=== PATIENT | female | born 1965 | race Caucasian/White ===

== ENCOUNTER → 2016-05-17 | Outpatient (CLI) | payer OTHER, MEDICARE ==
[~2016-05-17] MED LIST: /CELE20CA PO; /PANT40TA PO; AMIT10TA PO; DULO20CA PO; DULO30CA PO; GABA-283 PO; LIDO5DIS TOP; MELO7.5S PO; NAPR500T2 PO; NEUR100C PO; OXYC15TA66 PO; OXYCON PO; VICO5TAB PO; VOLT1GEL TOP
--- NOTE | 2016-05-22 23:37 | ECWPNPC ---
PATIENT NAME: LEVI AMRTE : 1965 GENDER: FEMALE VISIT DATE: 05/17/2016 DISCHARGE DATE: 05/17/16 1028 VISIT LOCKED DATE TIME: PHYSICIAN: CRICKET TOVAR RESOURCE: CRICKET TOVAR REASON FOR APPOINTMENT 1. W/C ARM HISTORY OF PRESENT ILLNESS GENERAL: 50 YEAR OLD FEMALE PATIENT WITH HISTORY OF CHRONIC RIGHT UPPER ARM AND BILATERAL WRIST AND HAND PAIN. PATIENT DESCRIBES THE PAIN ACHING, BURNING, SHARP, STABBING, TENDER, THROBBING, SORE, AND HAVING IT ALL THE TIME WITH A PAIN SCORE OF 9/10 ON TODAY'S VISIT. PATIENT WAS INJURED IN A WORK RELATED INJURY ON 06/09/2009 WORKING FOR THE [employer]. PATIENT INJURY WAS DUE TO THE REPETITIOUS MOVEMENT FROM TYPING. PATIENT REPORTS THAT SHE HAS A STELLATE GANGLION BLOCK ON 03/02/2016 AND SHE HAD THE LONGEST PAIN RELIEF FROM THAT INJECTION. PATIENT STATES THAT SOMETIMES SHE EXPERIENCES SWEATING ON HER RIGHT HAND MORE COMPARED TO THE LEFT HAND. AND THAT SHE HER HANDS GOES THROUGH TEMPERATURE CHANGES. PATIENT DENIES UNEXPLAINABLE WEIGHT LOSS, FEVER, CHILLS, NEW CHANGES ON HER URINARY OR BOWEL CONTROL. CURRENT MEDICATIONS TAKING MELOXICAM 15 MG TABLET 1 TABLET ORALLY ONCE A DAY TAKING AMITRIPTYLINE HCL 30 MG TABLET 1 TABLET AT BEDTIME ORALLY ONCE A DAY TAKING DULOXETINE HCL 30 MG CAPSULE DELAYED RELEASE PARTICLES 1 CAPSULE ORALLY TWICE A DAY TAKING GABAPENTIN 400 MG TABLET 1 TABLET ORALLY BID TAKING OXYCONTIN 30 MG TABLET ER 12 HOUR ABUSE-DETERRENT 1 TABLET ORALLY EVERY 12 HRS TAKING TRAMADOL HCL 50 MG TABLET 1 TABLET NEEDED ORALLY EVERY 4 HOURS NEEDED TAKING HYDROCODONE-ACETAMINOPHEN 5-325 MG TABLET 1 CAPSULE NEEDED ORALLY EVERY 4 HRS NEEDED NOT-TAKING VALIUM 10 MG TABLET 1 ORALLY 1 TAB 1HR PRE PROCEDURE MDD1 NOT-TAKING VALIUM 5 MG TABLET 1 TABLET NEEDED ORALLY ONCE, NOTES: 1400 NOT-TAKING FLOMAX 0.4 MG CAPSULE 1 CAPSULE 30 MINUTES AFTER THE SAME MEAL EACH DAY ORALLY ONCE A DAY NOT-TAKING KETOROLAC TROMETHAMINE 10 MG TABLET 1 TABLET NEEDED ORALLY BID PRN NOT-TAKING LIDOCAINE 5 % OINTMENT 1 APPLICATION TO AFFECTED AREA NEEDED EXTERNALLY THREE TIMES A DAY NOT-TAKING NAPROXEN 500 MG TABLET 1 TABLET NEEDED ORALLY EVERY 12 HRS MEDICATION LIST REVIEWED AND RECONCILED WITH THE PATIENT PAST MEDICAL HISTORY KIDNEY STONES CTS, BILATERAL FIBROMYALGIA OSTEOARTHRITIS SCOLIOSIS A CHILD ALLERGIES PSEUDOEPHEDRINE HCL: HIVES: ALLERGY SULFA (FOR ALLERGY USE ONLY): HIVES: ALLERGY SURGICAL HISTORY CHOLECYSTECTOMY 2008 CTR, RIGHT 2012 TUBAL LIGATION 2008 LITHOTRIPSY 2005 REMOVAL LIPOMA LEFT ABDOMEN 2015 FAMILY HISTORY NO FAMILY HISTORY DOCUMENTED. SOCIAL HISTORY GENERAL: TOBACCO USE ARE YOU A:NONSMOKER LEARNING BARRIERS / SPECIAL NEEDS ORIENTED TO PLAN OF CARE: PATIENT, PAIN MANAGEMENT PATIENT, ORIENTED TO PLAN OF CARE: PATIENT, PAIN MANAGEMENT PATIENT. NEW PATIENT PAIN DIARY TODAY'S VISITNOTES FROM 0-10, WHAT LEVEL IS YOUR PAIN TODAY?0 PAIN CLINIC PFS, CLERGY, PUBLIC HEALTH REFERRALS PFS REFERRAL NEEDED?NO CLERGY REFERRAL NEEDED?NO PUBLIC HEALTH REFERRAL NEEDED?NO WAS THE PROVIDER NOTIFIED OF ANY PERTINENT INFO?NO PFS REFERRAL NEEDED?NO CLERGY REFERRAL NEEDED?NO PUBLIC HEALTH REFERRAL NEEDED?NO WAS THE PROVIDER NOTIFIED OF ANY PERTINENT INFO?NO HOSPITALIZATION/MAJOR DIAGNOSTIC PROCEDURE SURGICALLY RELATED CONCUSION TEENAGER VITAL SIGNS WT 180 LBS, HT 63 IN, BMI 31.88 INDEX, BP 160/85 MM HG, HR 99 /MIN, RR 16 /MIN, TEMP 96.9 F, OXYGEN SAT % 98, NA INITIALS TL 0946, REVIEWED BY: MATEO. EXAMINATION GENERAL: PATIENT IS ALERT O X 3 AND COOPERATIVE. PATIENT HAD DIFFICULTIES PULLING THE SLEEVES UP FOR THE EXAMINATION. 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 PATIENT'S RIGHT HAND NEON MOLDER IS WEAKER COMPARED TO THE LEFT HAND NEON MOLDER. PATIENT'S STRENGTH IN THE IN THE RIGHT ARM IS WEAKER COMPARED TO THE LEFT ARM. PATIENT IS ABLE TO ONLY ABDUCT HER LEFT ARM, ATTEMPTING TO ABDUCT THE RIGHT ARM WAS TOO DIFFICULT FOR THE PATIENT. THERE IS HYPERPATHIA ON THE SCAR ON THE RIGHT WRIST. 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 TREATMENT PAIN IN ARM, UNSPECIFIED NOTES: WE DISCUSSED SEVERAL ISSUES WITH MS. MARTE'S PAIN MANAGEMENT CASE. AT THIS TIME THE PAIN WILL CONTINUE ON THE SAME MEDICATION REGIMEN BEFORE, AND WILL ALSO RECEIVE A REFILL OF THE NEEDED MEDICATIONS TODAY. DUE TO THE SUCCESS OF THE STELLATE GANGLION BLOCK, THE PATIENT IS A GOOD CANDIDATE FOR ANOTHER STELLATE GANGLION BLOCK INJECTION. WE DISCUSSED THE RISK, ALTERNATIVES, AND BENEFITS AND THE PATIENT WOULD LIKE TO PROCEED. , INSTRUCTIONS WERE GIVEN, QUESTIONS WERE ANSWERED, PATIENT REPORTS UNDERSTANDING AND AGREES WITH THE PLAN. I, ARDEN BAEL, DOCUMENTED THE ABOVE INFORMATION ACTING A SCRIBE FOR DR. TOVAR. I HAVE REVIEWED THE ABOVE DOCUMENT, WRITTEN BY ARDEN BEAL SCRIBE AND I VERIFY THAT IT IS ACCURATE. OTHERS REFILL MELOXICAM TABLET, 15 MG, 1 TABLET, ORALLY, ONCE A DAY REFILL DULOXETINE HCL CAPSULE DELAYED RELEASE PARTICLES, 30 MG, 1 CAPSULE, ORALLY, TWICE A DAY REFILL GABAPENTIN TABLET, 400 MG, 1 TABLET, ORALLY, BID REFILL AMITRIPTYLINE HCL TABLET, 30 MG, 1 TABLET AT BEDTIME, ORALLY, ONCE A DAY REFILL OXYCONTIN TABLET ER 12 HOUR ABUSE-DETERRENT, 30 MG, 1 TABLET, ORALLY, EVERY 12 HRS REFILL HYDROCODONE-ACETAMINOPHEN TABLET, 5-325 MG, 1 CAPSULE NEEDED, ORALLY, EVERY 4 HRS NEEDED PROCEDURES PN WORKMANS' COMP OPINION IN YOUR OPINION, WAS THE INCIDENT THAT THE PATIENT DESCRIBED THE COMPETENT MEDICAL CAUSE OF THIS INJURY/ILLNESS? YES ARE THE PATIENT'S COMPLAINTS CONSISTENT WITH HIS/HER HISTORY OF THE INJURY/ILLNESS? YES IS THE PATIENT'S HISTORY OF THE INJURY/ILLNESS CONSISTENT WITH YOUR OBJECTIVE FINDING? YES WHAT IS THE PERCENTAGE OF TEMPORARY IMPAIRMENT? MARKED = 75% IS THE PATIENT WORKING? NO DOCTOR ON SITE: CRICKET SUH MD PREVENTIVE MEDICINE PAIN CLINIC TEACHING: PROCEDURE TEACHING PRE STELLATE GANGLION INSTRUCTIONS REVIEWED WITH PT. VERBALIZED UNDERSTANDING.. PROCEDURE CODES FA211 ESTABILISHED PATIENT [facility] FACILITY CHARGE G8730 PAIN ASSESS POS TOOL F/U PLAN DOC G8427 DOC MEDS VERIFIED W/PT OR RE DISPOSITION & COMMUNICATION FOLLOW UP STE. GAN. DECKER PENDING APPROVAL ELECTRONICALLY SIGNED BY CRICKET TOVAR MD ON 05/22/2016 AT 09:15 PM EST DISCLAIMER : THIS IS A VISIT SUMMARY EXTRACTED FROM THE [employer] CHART. IT IS NOT A COPY OF THE [employer] PROGRESS NOTE. MUKUL
== END ==
LOC: M PAIN 09:40
PROVIDERS: ATTEND Anesthesiology
DX: M79.603 Pain in arm, unspecified (principal); M25.531 Pain in right wrist; M25.532 Pain in left wrist; M79.642 Pain in left hand; M79.641 Pain in right hand; G90.511 Complex regional pain syndrome I of right upper limb; G89.29 Other chronic pain; M79.7 Fibromyalgia; M19.90 Unspecified osteoarthritis, unspecified site; Z86.69 Personal history of other diseases of the nervous system and sense organs; Z79.891 Long term (current) use of opiate analgesic; Z79.899 Other long term (current) drug therapy; Z88.2 Allergy status to sulfonamides; Z88.8 Allergy status to other drugs, medicaments and biological substances

== ENCOUNTER → 2016-06-21 | Outpatient (CLI) | payer OTHER, MEDICARE ==
[~2016-06-21] MED LIST changes: +BUPIVACAINE HCL 0.25% 30 ML VIAL As Ordered ONE; +ISOVUE-M 300 61% 15ML VIAL (Q9967) As Ordered ONE; +LIDOCAINE 1% SDV INJ 30 ML VIAL As Ordered ONE; +MIDAZOLAM INJ 2 MG/2 ML VIAL (J2250) As Ordered ONE; +TRIAMCINOLONE ACETONIDE SUSP 40 MG/ML VIAL (J3301) As Ordered ONE; +fentaNYL 100 MCG/2 ML INJECTION (J3010) As Ordered ONE; +methylPREDNISolone SUSP 40 MG/ML (DEPO-medrol) VIAL (J1030) As Ordered ONE
--- NOTE | 2016-06-21 16:19 | REP ---
FACET BLOCK: The images were reviewed with Dr. Rosas. The patient has a history of hand pain. The portable C-ARM was provided in the OR for Dr. Story for fluoroscopic guidance. 9 intraoperative fluoroscopic spot films were obtained for needle placement verification for right cervical stellate ganglion block. The images are on the PACs system and are available for review. 27 seconds of fluoroscopic time was utilized for this procedure. Reviewed by DOMI Barrientos 06/21/2016 05:06 PEdited and Signed by Evans Rosas MD 06/22/2016 03:35 P
--- NOTE | 2016-06-30 01:33 | ECWPNPC ---
PATIENT NAME: LEVI MARTE : 1965 GENDER: FEMALE VISIT DATE: 06/21/2016 DISCHARGE DATE: 06/21/16 1617 VISIT LOCKED DATE TIME: PHYSICIAN: CRICKET TOVAR RESOURCE: RCICKET TOVAR REASON FOR APPOINTMENT 1. STELLATE GANGLION BLOCK HISTORY OF PRESENT ILLNESS HISTORY OF PRESENT ILLNESS: PAIN THE PATIENT DESCRIBES THE PAIN... FALL RISK SCREENING: SCREENING :NO FALLS IN THE PAST YEAR CURRENT MEDICATIONS TAKING MELOXICAM 15 MG TABLET 1 TABLET ORALLY ONCE A DAY, NOTES: 06-21-16 0900 TAKING DULOXETINE HCL 30 MG CAPSULE DELAYED RELEASE PARTICLES 1 CAPSULE ORALLY TWICE A DAY, NOTES: 06-20-16 PM TAKING GABAPENTIN 400 MG TABLET 1 TABLET ORALLY BID, NOTES: 06-21-16 0900 TAKING AMITRIPTYLINE HCL 30 MG TABLET 1 TABLET AT BEDTIME ORALLY ONCE A DAY, NOTES: 06-20-16 PM TAKING OXYCONTIN 30 MG TABLET ER 12 HOUR ABUSE-DETERRENT 1 TABLET ORALLY EVERY 12 HRS, NOTES: 06-21-16 0900 TAKING HYDROCODONE-ACETAMINOPHEN 5-325 MG TABLET 1 CAPSULE NEEDED ORALLY EVERY 4 HRS NEEDED, NOTES: 06-21-16 1000 NOT-TAKING TRAMADOL HCL 50 MG TABLET 1 TABLET NEEDED ORALLY EVERY 4 HOURS NEEDED NOT-TAKING FLOMAX 0.4 MG CAPSULE 1 CAPSULE 30 MINUTES AFTER THE SAME MEAL EACH DAY ORALLY ONCE A DAY NOT-TAKING LIDOCAINE 5 % OINTMENT 1 APPLICATION TO AFFECTED AREA NEEDED EXTERNALLY THREE TIMES A DAY NOT-TAKING NAPROXEN 500 MG TABLET 1 TABLET NEEDED ORALLY EVERY 12 HRS DISCONTINUED VALIUM 10 MG TABLET 1 ORALLY 1 TAB 1HR PRE PROCEDURE MDD1 DISCONTINUED VALIUM 5 MG TABLET 1 TABLET NEEDED ORALLY ONCE, NOTES: 1400 DISCONTINUED KETOROLAC TROMETHAMINE 10 MG TABLET 1 TABLET NEEDED ORALLY BID PRN MEDICATION LIST REVIEWED AND RECONCILED WITH THE PATIENT PAST MEDICAL HISTORY KIDNEY STONES CTS, BILATERAL FIBROMYALGIA OSTEOARTHRITIS SCOLIOSIS A CHILD ALLERGIES PSEUDOEPHEDRINE HCL: HIVES: ALLERGY SULFA (FOR ALLERGY USE ONLY): HIVES: ALLERGY SOCIAL HISTORY GENERAL: TOBACCO USE ARE YOU A:NONSMOKER LEARNING BARRIERS / SPECIAL NEEDS ORIENTED TO PLAN OF CARE: PATIENT, PAIN MANAGEMENT PATIENT, ORIENTED TO PLAN OF CARE: PATIENT, PAIN MANAGEMENT PATIENT. NEW PATIENT PAIN DIARY TODAY'S VISITNOTES FROM 0-10, WHAT LEVEL IS YOUR PAIN TODAY?0 PAIN CLINIC PFS, CLERGY, PUBLIC HEALTH REFERRALS PFS REFERRAL NEEDED?NO CLERGY REFERRAL NEEDED?NO PUBLIC HEALTH REFERRAL NEEDED?NO WAS THE PROVIDER NOTIFIED OF ANY PERTINENT INFO?NO PFS REFERRAL NEEDED?NO CLERGY REFERRAL NEEDED?NO PUBLIC HEALTH REFERRAL NEEDED?NO WAS THE PROVIDER NOTIFIED OF ANY PERTINENT INFO?NO REVIEW OF SYSTEMS CONSTITUTIONAL: ANY CHANGE IN YOUR MEDICAL CONDITION? NO . CHILLS NO . FEVER NO . INFECTION: DO YOU HAVE NEW INFECTIONS? NO . DO YOU HAVE HISTORY OF MRSA? NO . MUSCULOSKELETAL: ANY NEW PATTERNS OF PAIN OR NUMBNESS? NO . GASTROENTEROLOGY: ANY NEW CHANGE IN BOWEL CONTROL? NO . GENITOURINARY: ANY NEW CHANGE IN BLADDER CONTROL? NO . IS THERE A CHANCE YOU COULD BE ? NO . HEMATOLOGY/LYMPH: DO YOU TAKE ANY BLOOD THINNERS? (FOR EXAMPLE- COUMADIN, PLAVIX, AGGRENOX, PLATEL, PRADAXA, OR XARELTO) NO . WHEN WAS YOUR LAST DOSE? DATE: TIME: . NEUROLOGY: HAVE YOU FALLEN IN THE PAST 6 MONTHS? NO . ANY NEW EXTREMITY NUMBNESS OR WEAKNESS? NO . CARDIOLOGY: DO YOU HAVE A PACEMAKER OR DEFIBRILLATOR? NO . RESPIRATORY: HAVE YOU BEEN SICK IN THE PAST WEEK? NO . FEVER NO . FLU LIKE SYMPTOMS? NO . COUGH NO . INTEGUMENTARY: DO YOU HAVE ANY RASHES OR OPEN SORES? NO . ALLERGIC/IMMUNO: ARE YOU ALLERGIC TO SHELLFISH OR IV DYE? NO . ANY NEW ALLERGIES? NO . PSYCHIATRIC: DO YOU HAVE THOUGHTS OF HURTING YOURSELF OR SOMEONE ELSE? NO . ARE YOU ABUSED, NEGLECTED, OR IN AN UNSAFE ENVIRONMENT? NO . ENDOCRINOLOGY: ARE YOU DIABETIC? NO . OTHER: DO YOU NEED ANY PRESCRIPTIONS? NO . IF YES, PLEASE LIST: ____ . ANY NEW PROBLEMS WITH YOUR MEDICATIONS? NO . WHEN DID YOU LAST EAT? 06-20-16 PM . WHEN DID YOU LAST DRINK? 06-21-16 0900 . WHAT DID YOU LAST DRINK? WATER . NAME OF PERSON DRIVING YOU HOME? NATALIA . DO YOU HAVE ANY OTHER QUESTIONS OR CONCERNS NO . REVIEWED BY: PROVIDER: . VITAL SIGNS WT 180 LBS, HT 63 IN, BMI 31.88 INDEX, BP 116/84 MM HG, HR 100 /MIN, RR 18 /MIN, TEMP 97.0 F, OXYGEN SAT % 95, NA INITIALS HS, REVIEWED BY: CM. 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 YES ARE THE PATIENT'S COMPLAINTS CONSISTENT WITH HIS/HER HISTORY OF THE INJURY/ILLNESS? YES IS THE PATIENT'S HISTORY OF THE INJURY/ILLNESS CONSISTENT WITH YOUR OBJECTIVE FINDING? YES WHAT IS THE PERCENTAGE OF TEMPORARY IMPAIRMENT? MARKED = 75% IS THE PATIENT WORKING? NO DOCTOR ON SITE: CRICKET SUH MD PREPROCEDURE DIAGNOSES: 1. RIGHT ARM NEURALGIA. 2. RIGHT ARM COMPLEX REGIONAL PAIN SYNDROMEPOSTPROCEDURE DIAGNOSES: 1. RIGHT ARM NEURALGIA. 2. RIGHT ARM COMPLEX REGIONAL PAIN SYNDROMEPROCEDURE: RIGHT STELLATE GANGLION BLOCK UNDER FLUOROSCOPIC GUIDANCE WITH I V SEDATION.SURGEON: CRICKET SUH MDASSISTANT: NONE.ANESTHESIA: LOCAL WITH INTRAVENOUS IV SEDATION.PREOPERATIVE NOTE: THE PATIENT IS WITH HISTORY OF RIGHT ARM PAIN. I WENT THROUGH THE RISKS, ALTERNATIVES, AND BENEFITS ASSOCIATED WITH THIS PROCEDURE. THE PATIENT WANTS TO HAVE IV SEDATION DUE TO ANXIETY AND DISCOMFORT THAT THIS PROCEDURE WILL CAUSE TO HER. THE PATIENT EXPRESSED THAT SHE WOULD LIKE TO PROCEED UNDER IV SEDATION. THE PATIENT DENIES UNEXPLAINABLE WEIGHT LOSS, FEVER, CHILLS, OR CHANGES IN HER URINARY OR BOWEL CONTROL.DESCRIPTION OF PROCEDURE: AFTER CONSENT WAS TAKEN, THE PATIENT WAS BROUGHT TO THE PROCEDURE ROOM AND PLACED IN THE SUPINE POSITION. THE RIGHT NECK AREA WAS CLEANED WITH CHLORAPREP SOLUTION AND DRAPED ASEPTICALLY. THE PROCEDURE WAS DONE UNDER STERILE CONDITIONS. UNDER FLUOROSCOPIC GUIDANCE, TARGET POINT WAS SELECTED AT THE LEVEL APPROXIMATELY OF T7. I ADVANCED A HAVEL 21G ULTRASOUND NEEDLE WITH THE HELP OF AN ULTRASOUND DEVICE. I PUT THE NEEDLE BEHIND THE CAROTID ARTERY AND ANTERIOR TO THE LONGUS COLLI MUSCLE. I USED THE ULTRASOUND TO CHECK THE VASCULAR STRUCTURES AND AVOID NERVES. WHEN APPROPRIATE POSITION OF THE NEEDLE WAS ACHIEVED, ISOVUE M DYE 30%, 1/4 ML, WAS INJECTED SHOWING SPREAD OF THE DYE. THEN A SOLUTION OF 10 ML OF BUPIVACAINE 0.25% AND LIDOCAINE 1%, 50/50 WAS INJECTED WITH KENALOG 40 MG. THE PATIENT RECEIVED FENTANYL 100 MCG IV AND VERSED 3 MG IV IN DIVIDED DOSES. FACE TO FACE TIME WAS 40 MINUTES .THERE WAS NO EVIDENCE OF BLOOD, PARESTHESIA, OR CEREBROSPINAL FLUID. THE PATIENT WAS SENT TO THE RECOVERY ROOM. THE PATIENT WAS MOVING EXTREMITIES AND DOING WELL. THERE WERE NO COMPLICATIONS DURING THE PROCEDURE. THERE WERE NO COMPLICATIONS. FLUOROSCOPY TIME WAS 22 SECONDSPOST PROCEDURE NOTE: AFTER THE PROCEDURE, THE PATIENT WAS HAVING EVIDENCE OF PTOSIS, EVIDENCE OF AN ADEQUATE BLOCK. I DISCUSSED ALTERNATIVES. WE WILL SEE THE PATIENT IN A FOLLOWUP. WE ARE LOOKING FOR LONG LASTING PAIN RELIEF WITH THIS INTERVENTION. THERE WERE NO COMPLICATIONS. INSTRUCTIONS WERE GIVEN, QUESTIONS WERE ANSWERED, PATIENT REPORTS UNDERSTANDING AND AGREES WITH THE PLAN. I, ARDEN BEAL, DOCUMENTED THE ABOVE INFORMATION ACTING A SCRIBE FOR DR. TOVAR. I HAVE REVIEWED THE ABOVE DOCUMENT, WRITTEN BY ARDEN BEAL SCRIBE AND I VERIFY THAT IT IS ACCURATE. DIAGNOSTIC IMAGING [facility] FACET BLOCK (PAIN)[id number] PROCEDURE CODES 00920 N BLOCK STELLATE GANGLION 70179 NEEDLE LOCALIZATION BY XRAY 94013 MOD SED SAME PHYS/QHP 5/>YRS 45362 MOD SED SAME PHYS/QHP EA DISPOSITION & COMMUNICATION FOLLOW UP 3 WEEKS ELECTRONICALLY SIGNED BY CRICKET TOVAR MD ON 06/29/2016 AT 01:12 PM EDT DISCLAIMER : THIS IS A VISIT SUMMARY EXTRACTED FROM THE [employer] CHART. IT IS NOT A COPY OF THE [employer] PROGRESS NOTE. MTDD
== END ==
LOC: M PAIN 13:00
PROVIDERS: ATTEND Anesthesiology
DX: G89.29 Other chronic pain (principal); G90.511 Complex regional pain syndrome I of right upper limb; M79.622 Pain in left upper arm; F41.9 Anxiety disorder, unspecified; M19.90 Unspecified osteoarthritis, unspecified site; Z88.2 Allergy status to sulfonamides; Z88.8 Allergy status to other drugs, medicaments and biological substances; Z79.891 Long term (current) use of opiate analgesic; Z79.899 Other long term (current) drug therapy; Z87.39 Personal history of other diseases of the musculoskeletal system and connective tissue
CPT/HCPCS: 64510; 77003; 99152; 99153; J1030; J2250; J3010; J3301; Q9967

== ENCOUNTER → 2016-08-26 | Outpatient (CLI) | payer OTHER, MEDICARE ==
[~2016-08-26] MED LIST changes: -BUPIVACAINE HCL 0.25% 30 ML VIAL As Ordered ONE; -ISOVUE-M 300 61% 15ML VIAL (Q9967) As Ordered ONE; -LIDOCAINE 1% SDV INJ 30 ML VIAL As Ordered ONE; -MIDAZOLAM INJ 2 MG/2 ML VIAL (J2250) As Ordered ONE; -TRIAMCINOLONE ACETONIDE SUSP 40 MG/ML VIAL (J3301) As Ordered ONE; -fentaNYL 100 MCG/2 ML INJECTION (J3010) As Ordered ONE; -methylPREDNISolone SUSP 40 MG/ML (DEPO-medrol) VIAL (J1030) As Ordered ONE
--- NOTE | 2016-09-08 02:32 | ECWPNPC ---
PATIENT NAME: LEVI MARTE : 1965 GENDER: FEMALE VISIT DATE: 08/26/2016 DISCHARGE DATE: 08/26/16 1620 VISIT LOCKED DATE TIME: PHYSICIAN: CRICKET TOVAR RESOURCE: CRICKET TOVAR REASON FOR APPOINTMENT 1. WC ARM PAIN HISTORY OF PRESENT ILLNESS HISTORY OF PRESENT ILLNESS: PAIN THE PATIENT DESCRIBES THE PAIN... 50 YEAR OLD FEMALE PATIENT WITH HISTORY OF CHRONIC RIGHT UPPER ARM AND BILATERAL WRIST AND HAND PAIN. PATIENT DESCRIBES THE PAIN ACHING, BURNING, SHARP, STABBING, TENDER, THROBBING, SORE, AND HAVING IT ALL THE TIME WITH A PAIN SCORE OF 6/10 ON TODAY'S VISIT. PATIENT WAS INJURED IN A WORK RELATED INJURY ON 06/09/2009 WORKING FOR THE [employer] PASS[employer]. PATIENT INJURY WAS DUE TO THE REPETITIOUS MOVEMENT FROM TYPING. PATIENT REPORTS THAT SHE HAS A STELLATE GANGLION BLOCK ON 06/21/2016 AND REPORTS HAVING OVER 50% RELIEF FROM PAIN AND AN INCREASE IN MOBILITY AND FUNCTIONALITY FOR OVER A 7 WEEKS. PATIENT STATES THAT SOMETIMES SHE EXPERIENCES SWEATING ON HER RIGHT HAND MORE COMPARED TO THE LEFT HAND. PATIENT DENIES UNEXPLAINABLE WEIGHT LOSS, FEVER, CHILLS, NEW CHANGES ON HER URINARY OR BOWEL CONTROL. FALL RISK SCREENING: SCREENING :NO FALLS IN THE PAST YEAR CURRENT MEDICATIONS TAKING MELOXICAM 15 MG TABLET 1 TABLET ORALLY ONCE A DAY TAKING DULOXETINE HCL 30 MG CAPSULE DELAYED RELEASE PARTICLES 1 CAPSULE ORALLY TWICE A DAY TAKING GABAPENTIN 400 MG TABLET 1 TABLET ORALLY BID TAKING AMITRIPTYLINE HCL 30 MG TABLET 1 TABLET AT BEDTIME ORALLY ONCE A DAY TAKING OXYCONTIN 30 MG TABLET ER 12 HOUR ABUSE-DETERRENT 1 TABLET ORALLY EVERY 12 HRS TAKING HYDROCODONE-ACETAMINOPHEN 5-325 MG TABLET 1 CAPSULE NEEDED ORALLY EVERY 4 HRS NEEDED NOT-TAKING TRAMADOL HCL 50 MG TABLET 1 TABLET NEEDED ORALLY EVERY 4 HOURS NEEDED NOT-TAKING FLOMAX 0.4 MG CAPSULE 1 CAPSULE 30 MINUTES AFTER THE SAME MEAL EACH DAY ORALLY ONCE A DAY NOT-TAKING LIDOCAINE 5 % OINTMENT 1 APPLICATION TO AFFECTED AREA NEEDED EXTERNALLY THREE TIMES A DAY NOT-TAKING NAPROXEN 500 MG TABLET 1 TABLET NEEDED ORALLY EVERY 12 HRS MEDICATION LIST REVIEWED AND RECONCILED WITH THE PATIENT PAST MEDICAL HISTORY KIDNEY STONES CTS, BILATERAL FIBROMYALGIA OSTEOARTHRITIS SCOLIOSIS A CHILD ALLERGIES PSEUDOEPHEDRINE HCL: HIVES: ALLERGY SULFA (FOR ALLERGY USE ONLY): HIVES: ALLERGY SURGICAL HISTORY CHOLECYSTECTOMY 2008 CTR, RIGHT 2012 TUBAL LIGATION 2008 LITHOTRIPSY 2005 REMOVAL LIPOMA LEFT ABDOMEN 2015 FAMILY HISTORY NO FAMILY HISTORY DOCUMENTED. SOCIAL HISTORY GENERAL: TOBACCO USE ARE YOU A:NONSMOKER LEARNING BARRIERS / SPECIAL NEEDS ORIENTED TO PLAN OF CARE: PATIENT, PAIN MANAGEMENT PATIENT, ORIENTED TO PLAN OF CARE: PATIENT, PAIN MANAGEMENT PATIENT. NEW PATIENT PAIN DIARY TODAY'S VISITNOTES FROM 0-10, WHAT LEVEL IS YOUR PAIN TODAY?0 PAIN CLINIC PFS, CLERGY, PUBLIC HEALTH REFERRALS PFS REFERRAL NEEDED?NO CLERGY REFERRAL NEEDED?NO PUBLIC HEALTH REFERRAL NEEDED?NO WAS THE PROVIDER NOTIFIED OF ANY PERTINENT INFO?NO PFS REFERRAL NEEDED?NO CLERGY REFERRAL NEEDED?NO PUBLIC HEALTH REFERRAL NEEDED?NO WAS THE PROVIDER NOTIFIED OF ANY PERTINENT INFO?NO HOSPITALIZATION/MAJOR DIAGNOSTIC PROCEDURE SURGICALLY RELATED CONCUSION TEENAGER REVIEW OF SYSTEMS CONSTITUTIONAL: ANY CHANGE IN YOUR MEDICAL CONDITION? NO . CHILLS NO . FEVER NO . INFECTION: DO YOU HAVE NEW INFECTIONS? NO . DO YOU HAVE HISTORY OF MRSA? NO . MUSCULOSKELETAL: ANY NEW PATTERNS OF PAIN OR NUMBNESS? NO . GASTROENTEROLOGY: ANY NEW CHANGE IN BOWEL CONTROL? NO . GENITOURINARY: ANY NEW CHANGE IN BLADDER CONTROL? NO . IS THERE A CHANCE YOU COULD BE ? NO . HEMATOLOGY/LYMPH: DO YOU TAKE ANY BLOOD THINNERS? (FOR EXAMPLE- COUMADIN, PLAVIX, AGGRENOX, PLATEL, PRADAXA, OR XARELTO) NO . WHEN WAS YOUR LAST DOSE? DATE: TIME: . NEUROLOGY: HAVE YOU FALLEN IN THE PAST 6 MONTHS? NO . ANY NEW EXTREMITY NUMBNESS OR WEAKNESS? NO . CARDIOLOGY: DO YOU HAVE A PACEMAKER OR DEFIBRILLATOR? NO . RESPIRATORY: HAVE YOU BEEN SICK IN THE PAST WEEK? NO . FEVER NO . FLU LIKE SYMPTOMS? NO . COUGH NO . INTEGUMENTARY: DO YOU HAVE ANY RASHES OR OPEN SORES? NO . ALLERGIC/IMMUNO: ARE YOU ALLERGIC TO SHELLFISH OR IV DYE? NO . ANY NEW ALLERGIES? NO . PSYCHIATRIC: DO YOU HAVE THOUGHTS OF HURTING YOURSELF OR SOMEONE ELSE? NO . ARE YOU ABUSED, NEGLECTED, OR IN AN UNSAFE ENVIRONMENT? NO . ENDOCRINOLOGY: ARE YOU DIABETIC? NO . OTHER: DO YOU NEED ANY PRESCRIPTIONS? NO . IF YES, PLEASE LIST: ____ . ANY NEW PROBLEMS WITH YOUR MEDICATIONS? NO . WHEN DID YOU LAST EAT? ____ . WHEN DID YOU LAST DRINK? ____ . WHAT DID YOU LAST DRINK? ____ . NAME OF PERSON DRIVING YOU HOME? ____ . DO YOU HAVE ANY OTHER QUESTIONS OR CONCERNS NO . REVIEWED BY: PROVIDER: CRICKET TOVAR MD . VITAL SIGNS WT 197.8 LBS, HT 63 IN, BMI 35.03 INDEX, BP 133/81 MM HG, HR 103 /MIN, RR 16 /MIN, TEMP 97.9 F, OXYGEN SAT % 93%, NA INITIALS SC 14:22. EXAMINATION : PATIENT IS ALERT O X 3 AND COOPERATIVE. PATIENT HAD DIFFICULTIES PULLING THE SLEEVES UP FOR THE EXAMINATION. 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 PATIENT'S RIGHT HAND SCRAP DROP CRANE OPERATOR IS WEAKER COMPARED TO THE LEFT HAND SCRAP DROP CRANE OPERATOR. PATIENT'S STRENGTH IN THE IN THE RIGHT ARM IS WEAKER COMPARED TO THE LEFT ARM. PATIENT IS ABLE TO ONLY ABDUCT HER LEFT ARM, ATTEMPTING TO ABDUCT THE RIGHT ARM WAS TOO DIFFICULT FOR THE PATIENT. THERE IS HYPERPATHIA ON THE SCAR ON THE RIGHT WRIST. ASSESSMENTS PAIN IN ARM, UNSPECIFIED - M79.603 (PRIMARY) PAIN IN RIGHT WRIST - M25.531 PAIN IN LEFT WRIST - M25.532 PAIN IN RIGHT HAND - M79.641 PAIN IN LEFT HAND - M79.642 TREATMENT PAIN IN ARM, UNSPECIFIED NOTES: WE DISCUSSED SEVERAL ISSUES WITH MRS. MARTE'S PAIN MANAGEMENT CASE. AT THIS TIME THE PATIENT WILL CONTINUE WITH THE SAME MEDICATION REGIME BEFORE. DUE TO THE PATIENT RECEIVING ADEQUATE RELIEF FROM THE INJECTION I WOULD LIKE TO PROCEED WITH ANOTHER. WE DISCUSSED THE RISKS, BENENFITS, AND ALTNERATIVES OF THE INJECTION AND THE PATIENT WOULD LIKE TO PROCEED AT THIS TIME. INSTRUCTIONS WERE GIVEN, QUESTIONS WERE ANSWERED, PATIENT REPORTS UNDERSTANDING AND AGREES WITH THE PLAN. I, MICK HOANG, DOCUMENTED THE ABOVE INFORMATION ACTING A SCRIBE FOR DR. TOVAR. I HAVE REVIEWED THE ABOVE DOCUMENT, WRITTEN BY MICK LANG AND I VERIFY THAT IT IS ACCURATE. PROCEDURES PN WORKMANS' COMP OPINION IN YOUR OPINION, WAS THE INCIDENT THAT THE PATIENT DESCRIBED THE COMPETENT MEDICAL CAUSE OF THIS INJURY/ILLNESS? YES ARE THE PATIENT'S COMPLAINTS CONSISTENT WITH HIS/HER HISTORY OF THE INJURY/ILLNESS? YES IS THE PATIENT'S HISTORY OF THE INJURY/ILLNESS CONSISTENT WITH YOUR OBJECTIVE FINDING? YES WHAT IS THE PERCENTAGE OF TEMPORARY IMPAIRMENT? MARKED = 75% IS THE PATIENT WORKING? NO DOCTOR ON SITE: CRICKET SUH MD PROCEDURE CODES FA211 ESTABILISHED PATIENT [facility] FACILITY CHARGE G8427 DOC MEDS VERIFIED W/PT OR RE G8730 PAIN ASSESS POS TOOL F/U PLAN DOC DISPOSITION & COMMUNICATION FOLLOW UP STELLATE GANGLION AFTER APPROVAL ELECTRONICALLY SIGNED BY CRICKET TOVAR MD ON 09/07/2016 AT 06:26 PM EDT DISCLAIMER : THIS IS A VISIT SUMMARY EXTRACTED FROM THE [employer] CHART. IT IS NOT A COPY OF THE [employer] PROGRESS NOTE. MTDD
== END ==
LOC: M PAIN 13:40
PROVIDERS: ATTEND Anesthesiology
DX: M79.603 Pain in arm, unspecified (principal); M25.531 Pain in right wrist; M25.532 Pain in left wrist; M79.641 Pain in right hand; M79.642 Pain in left hand; Z79.891 Long term (current) use of opiate analgesic; Z79.899 Other long term (current) drug therapy; Z88.8 Allergy status to other drugs, medicaments and biological substances; Z88.2 Allergy status to sulfonamides

== ENCOUNTER → 2016-10-21 | Outpatient (CLI) | payer OTHER, MEDICARE ==
[~2016-10-21] MED LIST changes: +BUPIVACAINE HCL 0.25% 30 ML VIAL As Ordered ONE; +ISOVUE-M 300 61% 15ML VIAL (Q9967) As Ordered ONE; +LIDOCAINE 1% SDV INJ 30 ML VIAL As Ordered ONE; +MIDAZOLAM INJ 2 MG/2 ML VIAL (J2250) As Ordered ONE; -NAPR500T2 PO; +NAPR500T3 PO; +TRIAMCINOLONE ACETONIDE SUSP 40 MG/ML VIAL (J3301) As Ordered ONE; +fentaNYL 100 MCG/2 ML INJECTION (J3010) As Ordered ONE
--- NOTE | 2016-10-21 17:07 | REP ---
Partial cervical spine series: Six views: History: Right stellate ganglion block for pain. 7 seconds of fluoroscopy time is reported. Findings: A sequence of six fluoroscopically obtained last image hold spot radiographs of the cervical spine and right neck soft tissues document needle position and contrast injection associated with right stellate ganglion block procedure. Signed by Romeo Villegas MD 10/22/2016 08:09 A
--- NOTE | 2016-11-02 01:15 | ECWPNPC ---
PATIENT NAME: LEVI MARTE : 1965 GENDER: FEMALE VISIT DATE: 10/21/2016 DISCHARGE DATE: 10/21/161657 VISIT LOCKED DATE TIME: PHYSICIAN: CRICKET TOVAR RESOURCE: CRICKET TOVAR REASON FOR APPOINTMENT 1. STELLATE GANGLION HISTORY OF PRESENT ILLNESS HISTORY OF PRESENT ILLNESS: PAIN THE PATIENT DESCRIBES THE PAIN... FALL RISK SCREENING: SCREENING :NO FALLS IN THE PAST YEAR CURRENT MEDICATIONS TAKING MELOXICAM 15 MG TABLET 1 TABLET ORALLY ONCE A DAY, NOTES: 10-21-16699 TAKING DULOXETINE HCL 30 MG CAPSULE DELAYED RELEASE PARTICLES 1 CAPSULE ORALLY TWICE A DAY, NOTES: 10-20-162099 TAKING GABAPENTIN 400 MG TABLET 1 TABLET ORALLY BID, NOTES: 10-21-16699 TAKING AMITRIPTYLINE HCL 30 MG TABLET 1 TABLET AT BEDTIME ORALLY ONCE A DAY, NOTES: 10-20-162099 TAKING OXYCONTIN 30 MG TABLET ER 12 HOUR ABUSE-DETERRENT 1 TABLET ORALLY EVERY 12 HRS, NOTES: 699 TAKING HYDROCODONE-ACETAMINOPHEN 5-325 MG TABLET 1 CAPSULE NEEDED ORALLY EVERY 4 HRS NEEDED, NOTES: 10-21-16299 NOT-TAKING LIDOCAINE 5 % OINTMENT 1 APPLICATION TO AFFECTED AREA NEEDED EXTERNALLY THREE TIMES A DAY NOT-TAKING NAPROXEN 500 MG TABLET 1 TABLET NEEDED ORALLY EVERY 12 HRS DISCONTINUED TRAMADOL HCL 50 MG TABLET 1 TABLET NEEDED ORALLY EVERY 4 HOURS NEEDED DISCONTINUED FLOMAX 0.4 MG CAPSULE 1 CAPSULE 30 MINUTES AFTER THE SAME MEAL EACH DAY ORALLY ONCE A DAY MEDICATION LIST REVIEWED AND RECONCILED WITH THE PATIENT PAST MEDICAL HISTORY KIDNEY STONES CTS, BILATERAL FIBROMYALGIA OSTEOARTHRITIS SCOLIOSIS A CHILD ALLERGIES PSEUDOEPHEDRINE HCL: HIVES: ALLERGY SULFA (FOR ALLERGY USE ONLY): HIVES: ALLERGY REVIEW OF SYSTEMS REVIEWED BY: PROVIDER: . CONSTITUTIONAL: ANY CHANGE IN YOUR MEDICAL CONDITION? YES, HAS ABDOMINAL PAIN AND BACK PAIN AND NAUSEA. DIAGNOSED WITH KIDNEY STONES, DIVERTICULOSIS, FATTY LIVER AND HIGH CHLOESTEROL. . CHILLS NO . FEVER NO . INFECTION: DO YOU HAVE NEW INFECTIONS? NO . DO YOU HAVE HISTORY OF MRSA? NO . MUSCULOSKELETAL: ANY NEW PATTERNS OF PAIN OR NUMBNESS? NO . GASTROENTEROLOGY: ANY NEW CHANGE IN BOWEL CONTROL? NO . GENITOURINARY: ANY NEW CHANGE IN BLADDER CONTROL? YES, KIDNEY STONES . IS THERE A CHANCE YOU COULD BE ? NO . HEMATOLOGY/LYMPH: DO YOU TAKE ANY BLOOD THINNERS? (FOR EXAMPLE- COUMADIN, PLAVIX, AGGRENOX, PLATEL, PRADAXA, OR XARELTO) NO . WHEN WAS YOUR LAST DOSE? DATE: TIME: . NEUROLOGY: HAVE YOU FALLEN IN THE PAST 6 MONTHS? NO . ANY NEW EXTREMITY NUMBNESS OR WEAKNESS? NO . CARDIOLOGY: DO YOU HAVE A PACEMAKER OR DEFIBRILLATOR? NO . RESPIRATORY: HAVE YOU BEEN SICK IN THE PAST WEEK? NO . FEVER NO . FLU LIKE SYMPTOMS? NO . COUGH NO . INTEGUMENTARY: DO YOU HAVE ANY RASHES OR OPEN SORES? NO . ALLERGIC/IMMUNO: ARE YOU ALLERGIC TO SHELLFISH OR IV DYE? NO . ANY NEW ALLERGIES? NO . PSYCHIATRIC: DO YOU HAVE THOUGHTS OF HURTING YOURSELF OR SOMEONE ELSE? NO . ARE YOU ABUSED, NEGLECTED, OR IN AN UNSAFE ENVIRONMENT? NO . ENDOCRINOLOGY: ARE YOU DIABETIC? NO . OTHER: DO YOU NEED ANY PRESCRIPTIONS? NO . IF YES, PLEASE LIST: ____ . ANY NEW PROBLEMS WITH YOUR MEDICATIONS? NO . WHEN DID YOU LAST EAT? 10-20-16 LAST NIGHT . WHEN DID YOU LAST DRINK? 10-21-16 0700 . WHAT DID YOU LAST DRINK? COFFEE . NAME OF PERSON DRIVING YOU HOME? NEEDS TO CALL A FAMILY MEMBER . DO YOU HAVE ANY OTHER QUESTIONS OR CONCERNS NO . VITAL SIGNS WT 190.6 LBS, HT 63 IN, BMI 33.76 INDEX, BP 118/84 MM HG, HR 84 /MIN, RR 16 /MIN, TEMP 98.9 F, OXYGEN SAT % 97%, NA INITIALS SC 11:47, REVIEWED BY: CM. 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 RIGHT ARM NEUROPATHYPOSTPROCEDURE DIAGNOSES: 1. RIGHT ARM NEUROPATHYPROCEDURE: RIGHT STELLATE GANGLION BLOCK UNDER FLUOROSCOPIC GUIDANCE WITH IV SEDATION.SURGEON: CRICKET SUH MDASSISTANT: NONE.ANESTHESIA: LOCAL WITH INTRAVENOUS IV SEDATION.PREOPERATIVE NOTE: THE PATIENT IS WITH HISTORY OF RIGHT ARM PAIN. I WENT THROUGH THE RISKS, ALTERNATIVES, AND BENEFITS ASSOCIATED WITH THIS PROCEDURE. THE PATIENT WANTS TO HAVE IV SEDATION DUE TO ANXIETY AND DISCOMFORT THAT THIS PROCEDURE WILL CAUSE TO HER. THE PATIENT EXPRESSED THAT SHE WOULD LIKE TO PROCEED UNDER IV SEDATION. THE PATIENT DENIES UNEXPLAINABLE WEIGHT LOSS, FEVER, CHILLS, OR CHANGES IN HER URINARY OR BOWEL CONTROL.DESCRIPTION OF PROCEDURE: AFTER CONSENT WAS TAKEN, THE PATIENT WAS BROUGHT TO THE PROCEDURE ROOM AND PLACED IN THE SUPINE POSITION. THE RIGHT NECK AREA WAS CLEANED WITH CHLORAPREP SOLUTION AND DRAPED ASEPTICALLY. THE PROCEDURE WAS DONE UNDER STERILE CONDITIONS. UNDER FLUOROSCOPIC GUIDANCE, TARGET POINT WAS SELECTED AT THE LEVEL APPROXIMATELY OF T7. I ADVANCED A HAVEL 21G ULTRASOUND NEEDLE WITH THE HELP OF AN ULTRASOUND DEVICE. I PUT THE NEEDLE BEHIND THE CAROTID ARTERY AND ANTERIOR TO THE LONGUS COLLI MUSCLE. I USED THE ULTRASOUND TO CHECK THE VASCULAR STRUCTURES AND AVOID NERVES. WHEN APPROPRIATE POSITION OF THE NEEDLE WAS ACHIEVED, ISOVUE M DYE 30%, 1/4 ML, WAS INJECTED SHOWING SPREAD OF THE DYE. THEN A SOLUTION OF 10 ML OF BUPIVACAINE 0.25% AND LIDOCAINE 1%, 50/50 WAS INJECTED WITH KENALOG 40 MG. THE PATIENT RECEIVED FENTANYL 100 MCG IV AND VERSED 2 MG IV IN DIVIDED DOSES. FACE TO FACE TIME WAS 40 MINUTES .THERE WAS NO EVIDENCE OF BLOOD, PARESTHESIA, OR CEREBROSPINAL FLUID. THE PATIENT WAS SENT TO THE RECOVERY ROOM. THE PATIENT WAS MOVING EXTREMITIES AND DOING WELL. THERE WERE NO COMPLICATIONS DURING THE PROCEDURE. THERE WERE NO COMPLICATIONS. FLUOROSCOPY TIME WAS 7 SECONDS. FACE TO FACE TIME WAS 28 MINUTESPOST PROCEDURE NOTE: AFTER THE PROCEDURE, THE PATIENT WAS HAVING EVIDENCE OF PTOSIS, EVIDENCE OF AN ADEQUATE BLOCK. I DISCUSSED ALTERNATIVES. WE WILL SEE THE PATIENT IN A FOLLOWUP. WE ARE LOOKING FOR LONG LASTING PAIN RELIEF WITH THIS INTERVENTION. THERE WERE NO COMPLICATIONS. INSTRUCTIONS WERE GIVEN, QUESTIONS WERE ANSWERED, PATIENT REPORTS UNDERSTANDING AND AGREES WITH THE PLAN. I, MICK HOANG, DOCUMENTED THE ABOVE INFORMATION ACTING A SCRIBE FOR DR. TOVAR. I HAVE REVIEWED THE ABOVE DOCUMENT, WRITTEN BY MICK LANG AND I VERIFY THAT IT IS ACCURATE. PROCEDURES PN WORKMANS' COMP OPINION IN YOUR OPINION, WAS THE INCIDENT THAT THE PATIENT DESCRIBED THE COMPETENT MEDICAL CAUSE OF THIS INJURY/ILLNESS? YES ARE THE PATIENT'S COMPLAINTS CONSISTENT WITH HIS/HER HISTORY OF THE INJURY/ILLNESS? YES IS THE PATIENT'S HISTORY OF THE INJURY/ILLNESS CONSISTENT WITH YOUR OBJECTIVE FINDING? YES WHAT IS THE PERCENTAGE OF TEMPORARY IMPAIRMENT? MARKED = 75% IS THE PATIENT WORKING? NO DOCTOR ON SITE: CRICKET SUH MD DIAGNOSTIC IMAGING [facility] FLUORO GUIDANCE (PAIN)[id number] PROCEDURE CODES 46939 N BLOCK STELLATE GANGLION 81227 NEEDLE LOCALIZATION BY XRAY 46659 MOD SED SAME PHYS/QHP 5/>YRS 19321 MOD SED SAME PHYS/[place] 6045F RADXPS IN END [id number] PXD DISPOSITION & COMMUNICATION FOLLOW UP 3 WEEKS ELECTRONICALLY SIGNED BY CRICKET TOVAR MD ON 11/01/2016 AT 01:22 PM EDT DISCLAIMER : THIS IS A VISIT SUMMARY EXTRACTED FROM THE [employer] CHART. IT IS NOT A COPY OF THE [employer] PROGRESS NOTE. MTDD
== END ==
LOC: M PAIN 11:40
PROVIDERS: ATTEND Anesthesiology
DX: G90.511 Complex regional pain syndrome I of right upper limb (principal); G56.91 Unspecified mononeuropathy of right upper limb; M19.90 Unspecified osteoarthritis, unspecified site; K76.0 Fatty (change of) liver, not elsewhere classified; E78.00 Pure hypercholesterolemia, unspecified; Z88.2 Allergy status to sulfonamides; Z88.8 Allergy status to other drugs, medicaments and biological substances; Z79.891 Long term (current) use of opiate analgesic; Z79.899 Other long term (current) drug therapy
CPT/HCPCS: 64510; 77003; 99152; 99153; J2250; J3010; J3301; Q9967

== ENCOUNTER → 2016-12-17 | Outpatient (CLI) | payer OTHER, MEDICARE ==
[~2016-12-17] MED LIST changes: -BUPIVACAINE HCL 0.25% 30 ML VIAL As Ordered ONE; -ISOVUE-M 300 61% 15ML VIAL (Q9967) As Ordered ONE; -LIDOCAINE 1% SDV INJ 30 ML VIAL As Ordered ONE; -MIDAZOLAM INJ 2 MG/2 ML VIAL (J2250) As Ordered ONE; -TRIAMCINOLONE ACETONIDE SUSP 40 MG/ML VIAL (J3301) As Ordered ONE; -fentaNYL 100 MCG/2 ML INJECTION (J3010) As Ordered ONE
--- NOTE | 2016-12-23 01:36 | ECWPNPC ---
PATIENT NAME: LEVI MARTE : 1965 GENDER: FEMALE VISIT DATE: 12/17/2016 DISCHARGE DATE: 12/17/16 1043 VISIT LOCKED DATE TIME: PHYSICIAN: CRICKET TOVAR RESOURCE: CRICKET TOVAR REASON FOR APPOINTMENT 1. RIGHT ARM/BILATERAL WRIST PAIN W.C HISTORY OF PRESENT ILLNESS HISTORY OF PRESENT ILLNESS: PAIN THE PATIENT DESCRIBES THE PAIN... 50 YEAR OLD FEMALE PATIENT WITH HISTORY OF CHRONIC RIGHT UPPER ARM AND BILATERAL WRIST AND HAND PAIN. PATIENT DESCRIBES THE PAIN ACHING, BURNING, SHARP, STABBING, TENDER, THROBBING, SORE, AND HAVING IT ALL THE TIME WITH A PAIN SCORE OF 9/10 ON TODAY'S VISIT. PATIENT WAS INJURED IN A WORK RELATED INJURY ON 06/09/2009 WORKING FOR THE [employer]. PATIENT INJURY WAS DUE TO THE REPETITIOUS MOVEMENT FROM TYPING. PATIENT REPORTS THAT SHE HAS A STELLATE GANGLION BLOCK ON 10/21/16 AND REPORTS HAVING OVER 50% RELIEF FROM PAIN AND AN INCREASE IN MOBILITY AND FUNCTIONALITY FOR OVER A 7 WEEKS. HOWEVER, THE PATIENT STATES THAT THE PAIN IS STARTING TO RETURN. MRS. MARTE STATES THAT IT IS EASIER TO SHOWER AND DO EVERYDAY THINGS SINCE THE INJECTION. PATIENT STATES THAT SOMETIMES SHE EXPERIENCES SWEATING ON HER RIGHT HAND MORE COMPARED TO THE LEFT HAND. CURRENTLY THE PATIENT IS USING MELOXICAM, DULOXETINE, AMITRIPTYLINE, OXYCONTIN, AND HYDROCODONE FOR PAIN MANAGEMENT. PATIENT DENIES UNEXPLAINABLE WEIGHT LOSS, FEVER, CHILLS, NEW CHANGES ON HER URINARY OR BOWEL CONTROL. FALL RISK SCREENING: SCREENING :NO FALLS IN THE PAST YEAR CURRENT MEDICATIONS TAKING MELOXICAM 15 MG TABLET 1 TABLET ORALLY ONCE A DAY TAKING DULOXETINE HCL 30 MG CAPSULE DELAYED RELEASE PARTICLES 1 CAPSULE ORALLY TWICE A DAY TAKING GABAPENTIN 400 MG TABLET 1 TABLET ORALLY BID TAKING AMITRIPTYLINE HCL 30 MG TABLET 1 TABLET AT BEDTIME ORALLY ONCE A DAY TAKING OXYCONTIN 30 MG TABLET ER 12 HOUR ABUSE-DETERRENT 1 TABLET ORALLY EVERY 12 HRS TAKING HYDROCODONE-ACETAMINOPHEN 5-325 MG TABLET 1 CAPSULE NEEDED ORALLY EVERY 4 HRS NEEDED NOT-TAKING LIDOCAINE 5 % OINTMENT 1 APPLICATION TO AFFECTED AREA NEEDED EXTERNALLY THREE TIMES A DAY NOT-TAKING NAPROXEN 500 MG TABLET 1 TABLET NEEDED ORALLY EVERY 12 HRS MEDICATION LIST REVIEWED AND RECONCILED WITH THE PATIENT PAST MEDICAL HISTORY KIDNEY STONES CTS, BILATERAL FIBROMYALGIA OSTEOARTHRITIS SCOLIOSIS A CHILD ALLERGIES PSEUDOEPHEDRINE HCL: HIVES: ALLERGY SULFA (FOR ALLERGY USE ONLY): HIVES: ALLERGY SOCIAL HISTORY GENERAL: TOBACCO USE ARE YOU A:NONSMOKER LEARNING BARRIERS / SPECIAL NEEDS ORIENTED TO PLAN OF CARE: PATIENT, PAIN MANAGEMENT PATIENT, ORIENTED TO PLAN OF CARE: PATIENT, PAIN MANAGEMENT PATIENT. NEW PATIENT PAIN DIARY TODAY'S VISITNOTES FROM 0-10, WHAT LEVEL IS YOUR PAIN TODAY?0 PAIN CLINIC PFS, CLERGY, PUBLIC HEALTH REFERRALS PFS REFERRAL NEEDED?NO CLERGY REFERRAL NEEDED?NO PUBLIC HEALTH REFERRAL NEEDED?NO WAS THE PROVIDER NOTIFIED OF ANY PERTINENT INFO?NO HAS THE PATIENT BEEN EDUCATED REGARDING HIS/HER PLAN OF CARE?YES HAS THE PATIENT BEEN EDUCATED REGARDING PAIN, THE RISK FOR PAIN, THE IMPORTANCE OF EFFECTIVE PAIN MANAGEMENT, AND THE PAIN ASSESSMENT PROCESS?YES REVIEW OF SYSTEMS REVIEWED BY: PROVIDER: CRICKET TOVAR MD . CONSTITUTIONAL: ANY CHANGE IN YOUR MEDICAL CONDITION? NO . CHILLS NO . FEVER NO . INFECTION: DO YOU HAVE NEW INFECTIONS? NO . DO YOU HAVE HISTORY OF MRSA? NO . MUSCULOSKELETAL: ANY NEW PATTERNS OF PAIN OR NUMBNESS? YES, HAS SHARPER, CONSTANT PAIN NEAR THUMB AND WRIST . GASTROENTEROLOGY: ANY NEW CHANGE IN BOWEL CONTROL? NO . GENITOURINARY: ANY NEW CHANGE IN BLADDER CONTROL? NO . IS THERE A CHANCE YOU COULD BE ? NO . HEMATOLOGY/LYMPH: DO YOU TAKE ANY BLOOD THINNERS? (FOR EXAMPLE- COUMADIN, PLAVIX, AGGRENOX, PLATEL, PRADAXA, OR XARELTO) NO . WHEN WAS YOUR LAST DOSE? DATE: TIME: . NEUROLOGY: HAVE YOU FALLEN IN THE PAST 6 MONTHS? NO . ANY NEW EXTREMITY NUMBNESS OR WEAKNESS? NO . CARDIOLOGY: DO YOU HAVE A PACEMAKER OR DEFIBRILLATOR? NO . RESPIRATORY: HAVE YOU BEEN SICK IN THE PAST WEEK? NO . FEVER NO . FLU LIKE SYMPTOMS? NO . COUGH NO . INTEGUMENTARY: DO YOU HAVE ANY RASHES OR OPEN SORES? NO . ALLERGIC/IMMUNO: ARE YOU ALLERGIC TO SHELLFISH OR IV DYE? NO . ANY NEW ALLERGIES? NO . PSYCHIATRIC: DO YOU HAVE THOUGHTS OF HURTING YOURSELF OR SOMEONE ELSE? NO . ARE YOU ABUSED, NEGLECTED, OR IN AN UNSAFE ENVIRONMENT? NO . ENDOCRINOLOGY: ARE YOU DIABETIC? NO . OTHER: DO YOU NEED ANY PRESCRIPTIONS? NO . IF YES, PLEASE LIST: ____ . ANY NEW PROBLEMS WITH YOUR MEDICATIONS? NO . WHEN DID YOU LAST EAT? ____ . WHEN DID YOU LAST DRINK? ____ . WHAT DID YOU LAST DRINK? ____ . NAME OF PERSON DRIVING YOU HOME? ____ . DO YOU HAVE ANY OTHER QUESTIONS OR CONCERNS NO . VITAL SIGNS WT 189.6 LBS, HT 63 IN, BMI 33.58 INDEX, BP 128/81 MM HG, HR 97 /MIN, RR 16 /MIN, TEMP 97.3 F, OXYGEN SAT % 93%, NA INITIALS SC 10:02, REVIEWED BY: LIMA. EXAMINATION : PATIENT IS ALERT O X 3 AND COOPERATIVE. PATIENT HAD DIFFICULTIES PULLING THE SLEEVES UP FOR THE EXAMINATION. 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 PATIENT'S RIGHT HAND MINER HELPER IS WEAKER COMPARED TO THE LEFT HAND MINER HELPER. PATIENT'S STRENGTH IN THE IN THE RIGHT ARM IS WEAKER COMPARED TO THE LEFT ARM. PATIENT IS ABLE TO ONLY ABDUCT HER LEFT ARM, ATTEMPTING TO ABDUCT THE RIGHT ARM WAS TOO DIFFICULT FOR THE PATIENT. THERE IS HYPERPATHIA ON THE SCAR ON THE RIGHT WRIST. ASSESSMENTS PAIN OF RIGHT UPPER EXTREMITY - M79.601 (PRIMARY) PAIN IN RIGHT WRIST - M25.531 PAIN IN LEFT WRIST - M25.532 TREATMENT PAIN OF RIGHT UPPER EXTREMITY NOTES: WE DISCUSSED SEVERAL ISSUES WITH MRS. MARTE'S PAIN MANAGEMENT CASE. AT THIS TIME THE PATIENT WILL CONTINUE WITH THE SAME MEDICATION REGIME BEFORE. PATIENT IS USING MELOXICAM FOR THE MUSCLE SPASMS, DULOXETINE, AMITRIPTYLINE AND GABAPENTIN FOR THE NEUROPATHIC PAIN, AND OXYCONTIN AND HYDROCODONE FOR THE SOMATIC PAIN. PATIENT DENIES ABUSE OF ANY MEDICATION, DENIES USE OF ILLEGAL SUBSTACNES, AND STATES SHE IS ONLY USING THE MEDICATION FOR PAIN MANAGEMENT. WE BRIEFLY DISCUSSED THE DCS AT THIS TIME, THE PATIENT REPORTS DOING RESEARCH ON THE PRODUCT AND AT THIS TIME DOES NOT WANT TO MOVE FORWARD. DUE TO THE LONG LASTING RELIEF THE PATIENT RECEIVED FROM THE PREVIOUS STELLATE GANGLION BLOCK, OVER 50% RELIEF FROM PAIN WITH INCREASED MOBILITY AND FUNCTIONALITY OF THE RIGHT ARM FOR OVER 7 WEEKS, I WOULD LIKE TO REQUEST THE PROCEDURE AGAIN. WE DISCUSSED THE RISKS, BENENFITS, AND ALTNERATIVES OF THE INJECTION AND THE PATIENT WOULD LIKE TO PROCEED AT THIS TIME. INSTRUCTIONS WERE GIVEN, QUESTIONS WERE ANSWERED, PATIENT REPORTS UNDERSTANDING AND AGREES WITH THE PLAN. I, MICK SHAMPINE, DOCUMENTED THE ABOVE INFORMATION ACTING A SCRIBE FOR DR. TOVAR. I HAVE REVIEWED THE ABOVE DOCUMENT, WRITTEN BY MICK LANG AND I VERIFY THAT IT IS ACCURATE. OTHERS REFILL OXYCONTIN TABLET ER 12 HOUR ABUSE-DETERRENT, 30 MG, 1 TABLET, ORALLY, EVERY 12 HRS PROCEDURES PN WORKMANS' COMP OPINION IN YOUR OPINION, WAS THE INCIDENT THAT THE PATIENT DESCRIBED THE COMPETENT MEDICAL CAUSE OF THIS INJURY/ILLNESS? YES ARE THE PATIENT'S COMPLAINTS CONSISTENT WITH HIS/HER HISTORY OF THE INJURY/ILLNESS? YES IS THE PATIENT'S HISTORY OF THE INJURY/ILLNESS CONSISTENT WITH YOUR OBJECTIVE FINDING? YES WHAT IS THE PERCENTAGE OF TEMPORARY IMPAIRMENT? MARKED = 75% IS THE PATIENT WORKING? NO DOCTOR ON SITE: CRICKET SUH MD PROCEDURE CODES FA211 ESTABILISHED PATIENT [facility] FACILITY CHARGE G8427 DOC MEDS VERIFIED W/PT OR RE G8730 PAIN ASSESS POS TOOL F/U PLAN DOC DISPOSITION & COMMUNICATION FOLLOW UP STELLATE GANGLION AFTER APPROVAL ELECTRONICALLY SIGNED BY CRICKET TOVAR MD ON 12/22/2016 AT 01:37 PM EDT DISCLAIMER : THIS IS A VISIT SUMMARY EXTRACTED FROM THE [employer] CHART. IT IS NOT A COPY OF THE [employer] PROGRESS NOTE. MUKUL
== END ==
LOC: M PAIN 09:45
PROVIDERS: ATTEND Anesthesiology
DX: G89.29 Other chronic pain (principal); M79.601 Pain in right arm; M25.531 Pain in right wrist; M25.532 Pain in left wrist; M19.90 Unspecified osteoarthritis, unspecified site; Z88.2 Allergy status to sulfonamides; Z88.8 Allergy status to other drugs, medicaments and biological substances; Z79.891 Long term (current) use of opiate analgesic; Z79.899 Other long term (current) drug therapy

== ENCOUNTER → 2017-02-17 | Outpatient (CLI) | payer OTHER, MEDICARE ==
--- NOTE | 2017-02-18 00:21 | ECWPNPC ---
PATIENT NAME: LEVI MARTE : 1965 GENDER: FEMALE VISIT DATE: 02/17/2017 DISCHARGE DATE: 02/17/17 0000 VISIT LOCKED DATE TIME: PHYSICIAN: AIDA THOMPSON RESOURCE: AIDA THOMPSON HISTORY OF PRESENT ILLNESS HISTORY OF PRESENT ILLNESS: HERE FOR POST PROC. F/U.HAD RIGHT SYMPATHETIC GANGLION BLOCK ON .STATED 75% IMPROVEMENT IN PAIN POST PROCEDURE FOR 7 WEEKS THEN PAIN HAS RETURNED TO BASELINE.RATING RIGHT ARM PAIN 10/10.PAIN IS AGGREVTED BY USE OF RIGHT ARM.SHE IS RIGHT HANDED.REPORTS DROPPING THINGS FREQUENTLY.THIS IS A WORK RELATED INJURY ON 06-09-2009.REPORTING LEFT WRIST PAIN HAS GOTTEN WORSE LATELY. PAIN THE PATIENT DESCRIBES THE PAIN... THE PATIENT DESCRIBES THE PAIN... FALL RISK SCREENING: SCREENING :NO FALLS IN THE PAST YEAR CURRENT MEDICATIONS TAKING DULOXETINE HCL 30 MG CAPSULE DELAYED RELEASE PARTICLES 1 CAPSULE ORALLY TWICE A DAY TAKING GABAPENTIN 400 MG TABLET 1 TABLET ORALLY BID TAKING AMITRIPTYLINE HCL 30 MG TABLET 1 TABLET AT BEDTIME ORALLY ONCE A DAY TAKING HYDROCODONE-ACETAMINOPHEN 5-325 MG TABLET 1 CAPSULE NEEDED ORALLY EVERY 4 HRS NEEDED TAKING OXYCONTIN 30 MG TABLET ER 12 HOUR ABUSE-DETERRENT 1 TABLET ORALLY EVERY 12 HRS TAKING OMEPRAZOLE 10 MG CAPSULE DELAYED RELEASE 1 CAPSULE ORALLY ONCE A DAY TAKING LIDOCAINE & ADHESIVE SHEET 5 % KIT EXTERNALLY NOT-TAKING MELOXICAM 15 MG TABLET 1 TABLET ORALLY ONCE A DAY NOT-TAKING LIDOCAINE 5 % OINTMENT 1 APPLICATION TO AFFECTED AREA NEEDED EXTERNALLY THREE TIMES A DAY NOT-TAKING NAPROXEN 500 MG TABLET 1 TABLET NEEDED ORALLY EVERY 12 HRS MEDICATION LIST REVIEWED AND RECONCILED WITH THE PATIENT PAST MEDICAL HISTORY KIDNEY STONES CTS, BILATERAL FIBROMYALGIA OSTEOARTHRITIS SCOLIOSIS A CHILD HIGH CHOLESTEROL FATTY LIVER ALLERGIES PSEUDOEPHEDRINE HCL: HIVES: ALLERGY SULFA (FOR ALLERGY USE ONLY): HIVES: ALLERGY SURGICAL HISTORY CHOLECYSTECTOMY 2008 CTR, RIGHT 2012 TUBAL LIGATION 2008 LITHOTRIPSY 2005 REMOVAL LIPOMA LEFT ABDOMEN 2014 SOCIAL HISTORY GENERAL: TOBACCO USE ARE YOU A:NONSMOKER TENRIISM [id number] OTHER LANGUAGE LANGUAGES SPOKEN:IRISH LEARNING BARRIERS / SPECIAL NEEDS ORIENTED TO PLAN OF CARE: PATIENT, PAIN MANAGEMENT PATIENT, ORIENTED TO PLAN OF CARE: PATIENT, PAIN MANAGEMENT PATIENT. NEW PATIENT PAIN DIARY TODAY'S VISITNOTES FROM 0-10, WHAT LEVEL IS YOUR PAIN TODAY?0 PAIN CLINIC PFS, CLERGY, PUBLIC HEALTH REFERRALS PFS REFERRAL NEEDED?NO CLERGY REFERRAL NEEDED?NO PUBLIC HEALTH REFERRAL NEEDED?NO WAS THE PROVIDER NOTIFIED OF ANY PERTINENT INFO?NO HAS THE PATIENT BEEN EDUCATED REGARDING HIS/HER PLAN OF CARE?YES HAS THE PATIENT BEEN EDUCATED REGARDING PAIN, THE RISK FOR PAIN, THE IMPORTANCE OF EFFECTIVE PAIN MANAGEMENT, AND THE PAIN ASSESSMENT PROCESS?YES ADVANCE DIRECTIVES HEALTH CARE PROXY?YES NAME OF HCP JAQUELINE MARTE, FATHER DO YOU HAVE A DNR?NO LIVING WILL?NO POWER OF LPN PER DIEM?NO HOSPITALIZATION/MAJOR DIAGNOSTIC PROCEDURE SURGICALLY RELATED CONCUSION TEENAGER REVIEW OF SYSTEMS REVIEWED BY: PROVIDER: AIDA ALVAREZ . CONSTITUTIONAL: ANY CHANGE IN YOUR MEDICAL CONDITION? YES, RECENTLY DX WITH HIGH CHOLESTEROL AND FATTY LIVER, PT STATES SHE WAS PLACED ON RX FOR THIS, CAN'T REMEMBER NAME . CHILLS NO . FEVER NO . INFECTION: DO YOU HAVE NEW INFECTIONS? NO . DO YOU HAVE HISTORY OF MRSA? NO . MUSCULOSKELETAL: ANY NEW PATTERNS OF PAIN OR NUMBNESS? YES, NUMBNESS IS CONSTANT . GASTROENTEROLOGY: ANY NEW CHANGE IN BOWEL CONTROL? NO . GENITOURINARY: ANY NEW CHANGE IN BLADDER CONTROL? NO . IS THERE A CHANCE YOU COULD BE ? NO . HEMATOLOGY/LYMPH: DO YOU TAKE ANY BLOOD THINNERS? (FOR EXAMPLE- COUMADIN, PLAVIX, AGGRENOX, PLATEL, PRADAXA, OR XARELTO) NO . WHEN WAS YOUR LAST DOSE? DATE: TIME: . NEUROLOGY: HAVE YOU FALLEN IN THE PAST 6 MONTHS? NO . ANY NEW EXTREMITY NUMBNESS OR WEAKNESS? NO . CARDIOLOGY: DO YOU HAVE A PACEMAKER OR DEFIBRILLATOR? NO . RESPIRATORY: HAVE YOU BEEN SICK IN THE PAST WEEK? NO . FEVER NO . FLU LIKE SYMPTOMS? NO . COUGH NO . INTEGUMENTARY: DO YOU HAVE ANY RASHES OR OPEN SORES? NO . ALLERGIC/IMMUNO: ARE YOU ALLERGIC TO SHELLFISH OR IV DYE? NO . ANY NEW ALLERGIES? NO . PSYCHIATRIC: DO YOU HAVE THOUGHTS OF HURTING YOURSELF OR SOMEONE ELSE? NO . ARE YOU ABUSED, NEGLECTED, OR IN AN UNSAFE ENVIRONMENT? NO . ENDOCRINOLOGY: ARE YOU DIABETIC? NO . OTHER: DO YOU NEED ANY PRESCRIPTIONS? NO . IF YES, PLEASE LIST: ____ . ANY NEW PROBLEMS WITH YOUR MEDICATIONS? NO . WHEN DID YOU LAST EAT? ____ . WHEN DID YOU LAST DRINK? ____ . WHAT DID YOU LAST DRINK? ____ . NAME OF PERSON DRIVING YOU HOME? ____ . DO YOU HAVE ANY OTHER QUESTIONS OR CONCERNS NO . VITAL SIGNS WT 179.0 LBS, HT 63 IN, BMI 31.70 INDEX, BP 123/78 MM HG, HR 95 /MIN, RR 16 /MIN, TEMP 98.7 F, OXYGEN SAT % 94%, NA INITIALS TL 0925, REVIEWED BY: EM. EXAMINATION GENERAL EXAMINATION: LUNGS:LUNG SOUNDS ARE CLEAR. HEART:HEART RATE REGULAR. MUSCULOSKELETAL:*. 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 ASSESSMENTS PAIN OF RIGHT UPPER EXTREMITY - M79.601 (PRIMARY) PAIN IN RIGHT WRIST - M25.531 PAIN IN LEFT WRIST - M25.532 TREATMENT PAIN OF RIGHT UPPER EXTREMITY NOTES: CHECK ON STATUS OF STELLATE AUTH W/C. PROCEDURES PN WORKMANS' COMP OPINION IN YOUR OPINION, WAS THE INCIDENT THAT THE PATIENT DESCRIBED THE COMPETENT MEDICAL CAUSE OF THIS INJURY/ILLNESS? YES ARE THE PATIENT'S COMPLAINTS CONSISTENT WITH HIS/HER HISTORY OF THE INJURY/ILLNESS? YES IS THE PATIENT'S HISTORY OF THE INJURY/ILLNESS CONSISTENT WITH YOUR OBJECTIVE FINDING? YES WHAT IS THE PERCENTAGE OF TEMPORARY IMPAIRMENT? MARKED = 75% IS THE PATIENT WORKING? NO DOCTOR ON SITE: CRICKET SUH MD PROCEDURE CODES FA211 ESTABILISHED PATIENT [facility] CHARGE DISPOSITION & COMMUNICATION FOLLOW UP 4 WEEKS (REASON: CHECK ON STATUS OF STELLATE AUTH W/C) ELECTRONICALLY SIGNED BY KIM LUBIN ON 02/17/2017 AT 10:55 AM EST DISCLAIMER : THIS IS A VISIT SUMMARY EXTRACTED FROM THE [employer] CHART. IT IS NOT A COPY OF THE [employer] PROGRESS NOTE. MUKUL
== END ==
LOC: M PAIN 09:15
PROVIDERS: ATTEND Nurse Practitioner Family
DX: G89.29 Other chronic pain (principal); M79.601 Pain in right arm; M25.531 Pain in right wrist; M25.532 Pain in left wrist; E78.00 Pure hypercholesterolemia, unspecified; K76.0 Fatty (change of) liver, not elsewhere classified; Z88.2 Allergy status to sulfonamides; Z88.8 Allergy status to other drugs, medicaments and biological substances; Z79.891 Long term (current) use of opiate analgesic; Z79.899 Other long term (current) drug therapy

== ENCOUNTER → 2017-04-19 | Outpatient (CLI) | payer OTHER, MEDICARE ==
[~2017-04-19] MED LIST changes: -/CELE20CA PO; -/PANT40TA PO; -AMIT10TA PO; +BUPIVACAINE HCL 0.25% 30 ML VIAL As Ordered; -DULO20CA PO; -DULO30CA PO; -GABA-283 PO; +ISOVUE-M 300 61% 15ML VIAL (Q9967) As Ordered; -LIDO5DIS TOP; +LIDOCAINE 1% SDV INJ 30 ML VIAL As Ordered; -MELO7.5S PO; +MIDAZOLAM INJ 2 MG/2 ML VIAL (J2250) As Ordered; -NAPR500T3 PO; -NEUR100C PO; -OXYC15TA66 PO; -OXYCON PO; +TRIAMCINOLONE ACETONIDE SUSP 40 MG/ML VIAL (J3301) As Ordered; -VICO5TAB PO; -VOLT1GEL TOP; +fentaNYL 100 MCG/2 ML INJECTION (J3010) As Ordered
== END ==
LOC: M PAIN 13:15
DX: G56.91 Unspecified mononeuropathy of right upper limb (principal); M19.90 Unspecified osteoarthritis, unspecified site; E78.00 Pure hypercholesterolemia, unspecified; M79.7 Fibromyalgia; Z88.2 Allergy status to sulfonamides; Z88.8 Allergy status to other drugs, medicaments and biological substances; Z79.82 Long term (current) use of aspirin; Z79.899 Other long term (current) drug therapy
CPT/HCPCS: J3301

== ENCOUNTER → 2017-04-19 | Outpatient (CLI) | payer MEDICARE ==
[2017-04-19 13:30] LABS: ALBUMIN 4.1 GM/DL (3.2-5.2); ALBUMIN/GLOBULIN RATIO 1.08 (1.00-1.93); ALKALINE PHOSPHATASE 91 U/L (45-117); ALT/SGPT 35 U/L (12-78); ANION GAP 7 MEQ/L (8-16); AST/SGOT 22 U/L (7-37); BILIRUBIN,TOTAL 0.3 MG/DL (0.2-1.0); BLOOD UREA NITROGEN 14 MG/DL (7-18); CALCIUM LEVEL 8.8 MG/DL (8.5-10.1); CARBON DIOXIDE LEVEL 29 MEQ/L (21-32); CHLORIDE LEVEL 104 MEQ/L (98-107); CREATININE FOR GFR 0.85 MG/DL (0.55-1.02); FERRITIN 205 NG/ML (8-252); GLOMERULAR FILTRATION RATE > 60.0 (>51); GLUCOSE, FASTING 96 MG/DL (70-105); IRON (FE) 99 UG/DL (50-170); PERCENT SATURATION 36.7 % (13.2-45.0); POTASSIUM SERUM 4.3 MEQ/L (3.5-5.1); SODIUM LEVEL 140 MEQ/L (136-145); TOTAL IRON BINDING CAPACITY 270 UG/DL (250-450); TOTAL PROTEIN 7.9 GM/DL (6.4-8.2)
[2017-04-23 00:07] LABS: TISSUE TRANSGLUTAMINASE IgA <2 U/mL (0-3)
[2017-04-23 00:07] LABS: IGASUB3 38.7 mg/dL (13.4-97.9); IgA SERUM (part of Subclasses) 308 mg/dL (87-352)
== END ==
LOC: M LAB 12:34
DX: R10.13 Epigastric pain (principal)
CPT/HCPCS: 83550

== ENCOUNTER → 2017-06-22 | Outpatient (CLI) | payer OTHER, MEDICARE | LOC: M PAIN 10:15 | DX: M79.601 Pain in right arm (principal); M25.531 Pain in right wrist; M25.532 Pain in left wrist; E78.00 Pure hypercholesterolemia, unspecified; Z79.891 Long term (current) use of opiate analgesic; Z79.899 Other long term (current) drug therapy; Z88.8 Allergy status to other drugs, medicaments and biological substances | CPT/HCPCS: G0463 ==

== ENCOUNTER → 2017-09-21 | Outpatient (CLI) | payer OTHER, MEDICARE | LOC: M PAIN 13:00 | DX: G89.29 Other chronic pain (principal); G56.91 Unspecified mononeuropathy of right upper limb; M79.601 Pain in right arm; M19.90 Unspecified osteoarthritis, unspecified site; E78.00 Pure hypercholesterolemia, unspecified; Z79.899 Other long term (current) drug therapy; Z88.2 Allergy status to sulfonamides; Z88.8 Allergy status to other drugs, medicaments and biological substances | CPT/HCPCS: J3301 ==

== ENCOUNTER → 2017-12-07 | Outpatient (CLI) | payer OTHER, MEDICARE | LOC: M PAIN 09:45 | DX: M79.601 Pain in right arm (principal); M25.531 Pain in right wrist; M25.532 Pain in left wrist; M79.7 Fibromyalgia; M19.90 Unspecified osteoarthritis, unspecified site; E78.00 Pure hypercholesterolemia, unspecified; Z79.899 Other long term (current) drug therapy; Z88.2 Allergy status to sulfonamides; Z88.8 Allergy status to other drugs, medicaments and biological substances | CPT/HCPCS: G0463 ==

== ENCOUNTER → 2018-02-07 | Outpatient (CLI) | payer OTHER, MEDICARE | LOC: M PAIN 14:00 | DX: M79.2 Neuralgia and neuritis, unspecified (principal); M79.601 Pain in right arm; E78.00 Pure hypercholesterolemia, unspecified; K76.0 Fatty (change of) liver, not elsewhere classified; M19.90 Unspecified osteoarthritis, unspecified site; M79.7 Fibromyalgia; Z79.899 Other long term (current) drug therapy; Z88.2 Allergy status to sulfonamides; Z88.8 Allergy status to other drugs, medicaments and biological substances | CPT/HCPCS: J3301 ==

== ENCOUNTER 2018-05-01 12:33 | Emergency (ER) | payer MEDICARE ==
[~2018-05-01] VITALS: Ht 160 cm; Wt 85.9 kg
[~2018-05-01 12:33] MED LIST changes: +/CELE20CA PO; +/PANT40TA PO; +AMIT10TA PO; -BUPIVACAINE HCL 0.25% 30 ML VIAL As Ordered; +DULO20CA PO; +DULO30CA PO; +GABA-843 PO; +GABA-845 PO; -ISOVUE-M 300 61% 15ML VIAL (Q9967) As Ordered; +LIDO5DIS TOP; +LIDO5DIS41 TD; -LIDOCAINE 1% SDV INJ 30 ML VIAL As Ordered; +MELO7.5S PO; -MIDAZOLAM INJ 2 MG/2 ML VIAL (J2250) As Ordered; +NAPR-885 PO; +NEUR100C PO; +NEXI20CA PO; +OXYC15TA66 PO; +OXYC1TAB23 PO; +OXYCON PO; -TRIAMCINOLONE ACETONIDE SUSP 40 MG/ML VIAL (J3301) As Ordered; +VICO5TAB PO; +VOLT1GEL TOP; -fentaNYL 100 MCG/2 ML INJECTION (J3010) As Ordered
[2018-05-01 13:29] LABS: BASO # 0.1 10^3/uL (0.0-0.2); BASO % 1.4 % (0.0-1.0); EOS # 0.2 10^3/uL (0.0-0.50); HEMOGLOBIN 15.9 g/dl (12.0-15.5); LYMPH # 2.3 10^3/uL (1.5-4.5); LYMPH % 34.7 % (24.0-44.0); MEAN CORPUSCULAR HEMOGLOBIN 30.8 pg (27.0-33.0); MEAN CORPUSCULAR HGB CONC 33.1 g/dl (32.0-36.5); MEAN CORPUSCULAR VOLUME 92.8 fl (80.0-96.0); MONO # 0.5 10^3/uL (0.0-0.8); MONO % 7.1 % (0.0-5.0); NEUTROPHILS # 3.6 10^3/uL (1.8-7.7); NEUTROPHILS % 53.6 % (36.0-66.0); PLATELET COUNT, AUTOMATED 310 10^3/uL (150-450); RED BLOOD COUNT 5.17 10^6/uL (4.00-5.40); WHITE BLOOD COUNT 6.6 10^3/uL (4.0-10.0)
--- NOTE | 2018-05-01 13:49 | REP ---
Acute abdomen series: Three views. History: Abdomen pain. Findings: Upright chest radiograph is normal. There is no evidence of infiltrate or free subdiaphragmatic air. A bifid anterior fifth rib is noted on the left incidentally. Heart size is normal. Supine and erect views of the abdomen demonstrate clips in the right upper quadrant consistent with previous cholecystectomy. Psoas margins and flank stripes are intact. No mass, organomegaly, or pathologic calcification is seen. No significant air fluid level is noted. Impression: Negative acute abdominal series. Right upper quadrant surgical clips. Electronically Signed by Romeo Villegas MD 05/01/2018 01:40 P
[2018-05-01 14:01] LABS: ALBUMIN 4.1 GM/DL (3.2-5.2); ALT/SGPT 28 U/L (12-78); AMYLASE 43 U/L (25-115); BILIRUBIN,DIRECT 0.1 MG/DL (0.0-0.2); BILIRUBIN,TOTAL 0.4 MG/DL (0.2-1.0); BLOOD UREA NITROGEN 12 MG/DL (7-18); CALCIUM LEVEL 8.9 MG/DL (8.5-10.1); CARBON DIOXIDE LEVEL 24 MEQ/L (21-32); CHLORIDE LEVEL 104 MEQ/L (98-107); CREATININE FOR GFR 0.85 MG/DL (0.55-1.30); GLOMERULAR FILTRATION RATE > 60.0 (>51); GLUCOSE, FASTING 96 MG/DL (70-100); LIPASE 76 U/L (73-393); SODIUM LEVEL 139 MEQ/L (136-145)
[2018-05-01] MEDS ORDERED: METOCLOPRAMIDE INJ 10MG/2ML VIAL (J2765) IV ONE (15:15)
[2018-05-01] MEDS ORDERED: KETOROLAC 30 MG/ML VIAL (J1885) IV ONE (15:15)
[2018-05-01] MEDS ORDERED: NS 1,000 ML IV ONE (15:15)
[2018-05-01] MEDS ORDERED: ISOVUE-370 76% 100ML VIAL (Q9967) As Ordered ONE (15:24)
[2018-05-01 15:32] LABS: CPK CREATINE PHOSPHOKINASE 56 U/L (26-192); MB/CK RELATIVE INDEX 1.96 (< OR =4); TROPONIN I < 0.02 NG/ML (< 0.10)
--- NOTE | 2018-05-01 15:50 | REP ---
Clinical: Acute epigastric and left lower quadrant pain. Technique: Axial contrast enhanced images from the lung bases to the pubic symphysis using 100 ml Isovue 370 intravenous contrast material with coronal and sagittal re-formations. Comparison: 08/19/2015. Findings: Lung bases demonstrate minimal linear fibroatelectatic changes. Fatty infiltration to the liver noted without focal hepatic lesion. Spleen, pancreas, bilateral adrenal glands and kidneys are normal. Evidence for prior cholecystectomy noted. The enteric system is without obstruction or acute inflammatory process. Normal terminal ileum and appendix are identified in the right lower quadrant. Colonic and sigmoid diverticula noted without acute diverticulitis. Pelvis demonstrates normal bladder and age-appropriate uterus/adnexa. No ascites. No free air. No adenopathy. Abdominal aorta and vasculature without aneurysm or dissection. Musculoskeletal structures are intact. Impression: 1. Hepatosteatosis. 2. Diverticulosis without acute diverticulitis. 3. No acute abdominopelvic pathology appreciated. Electronically Signed by Asa Gonzáles MD 05/01/2018 03:41 P
[2018-05-01 16:55] VITALS: BP 123/81
[2018-05-08] MEDS ORDERED: NEUR100C PO (07:55)
== END 2018-05-01 16:57 | disposition home or self-care (01) ==
LOC: M ED 12:33
DX: R10.9 Unspecified abdominal pain (principal); K76.0 Fatty (change of) liver, not elsewhere classified; K57.32 Diverticulitis of large intestine without perforation or abscess without bleeding; R51 Headache; M79.7 Fibromyalgia; E66.9 Obesity, unspecified; Z87.442 Personal history of urinary calculi; Z79.899 Other long term (current) drug therapy; Z88.0 Allergy status to penicillin; Z88.2 Allergy status to sulfonamides; Z88.8 Allergy status to other drugs, medicaments and biological substances
CPT/HCPCS: 74021; 74177; 80048; 80076; 81001; 82150; 82550; 82553; 83690; 84484; 85025; 96374; 96375; 99284; J1885; J2765; Q9967

== ENCOUNTER 2018-05-22 07:40 | Day surgery (SDC) | payer MEDICARE ==
[~2018-05-22] VITALS: Ht 160 cm; Wt 84.5 kg
[~2018-05-22 07:40] MED LIST changes: +LIDOCAINE 2% INJ 100 MG/5 ML SDV (FOR ANES.) As Ordered ONE; +PROPOFOL 200 MG/20 ML VIAL As Ordered ONE
[2018-05-22] MEDS ORDERED: PROPOFOL 200 MG/20 ML VIAL As Ordered ONE (09:55)
--- NOTE | 2018-05-22 10:20 | ROOR ---
Patient Name: Muriel Sexton Procedure Date: 05/22/2018 9:27 AM Date of : 1965 Age: 52 Room: [facility] Gender: Female Note Status: Finalized Procedure: Colonoscopy Indications: Abnormal CT of the GI tract Providers: Bryan Mariscal MD Referring MD: BARTOLOME WELLS MD Requesting Provider: Medicines: Monitored Anesthesia Care Complications: No immediate complications. Procedure: Pre-Anesthesia Assessment: - Prior to the procedure, a History and Physical was performed, and patient medications and allergies were reviewed. The patient is competent. The risks and benefits of the procedure and the sedation options and risks were discussed with the patient. All questions were answered and informed consent was obtained. Patient identification and proposed procedure were verified by the physician, the nurse and the anesthesiologist in the procedure room. Mental Status Examination: alert and oriented. Airway Examination: normal oropharyngeal airway and neck mobility. Respiratory Examination: clear to auscultation. CV Examination: normal. Prophylactic Antibiotics: The patient does not require prophylactic antibiotics. Prior Anticoagulants: The patient has taken no previous anticoagulant or antiplatelet agents. ASA Grade Assessment: II - A patient with mild systemic disease. After reviewing the risks and benefits, the patient was deemed in satisfactory condition to undergo the procedure. The anesthesia plan was to use monitored anesthesia care (MAC). Immediately prior to administration of medications, the patient was re-assessed for adequacy to receive sedatives. The heart rate, respiratory rate, oxygen saturations, blood pressure, adequacy of pulmonary ventilation, and response to care were monitored throughout the procedure. The physical status of the patient was re-assessed after the procedure. The Colonoscope was introduced through the anus and advanced to the terminal ileum, with identification of the appendiceal orifice and IC valve. Findings: The perianal and digital rectal examinations were normal. The terminal ileum appeared normal. There is no endoscopic evidence of inflammation or mass in the cecum and in the ileocecal valve. Two sessile polyps were found in the ascending colon. The polyps were 3 to 8 mm in size. These polyps were removed with a cold snare. Resection and retrieval were complete. Verification of patient identification for the specimen was done by the physician and nurse using the patient's name, date and medical record number. Estimated blood loss was minimal. For hemostasis, one hemostatic clip was successfully placed. There was no bleeding at the end of the procedure. Two sessile polyps were found in the transverse colon. The polyps were 3 to 8 mm in size. These polyps were removed with a cold snare. Resection and retrieval were complete. Many small-mouthed diverticula were found in the sigmoid colon. There was no evidence of diverticular bleeding. Non-bleeding external and internal hemorrhoids were found during retroflexion. The hemorrhoids were medium-sized. Impression: - The examined portion of the ileum was normal. - Two 3 to 8 mm polyps in the ascending colon, removed with a cold snare. Resected and retrieved. Clip was placed. - Two 3 to 8 mm polyps in the transverse colon, removed with a cold snare. Resected and retrieved. - Moderate diverticulosis in the sigmoid colon. There was no evidence of diverticular bleeding. - Non-bleeding external and internal hemorrhoids. Recommendation: - Patient has a contact number available for emergencies. The signs and symptoms of potential delayed complications were discussed with the patient. Return to normal activities tomorrow. Written discharge instructions were provided to the patient. - High fiber diet. - Continue present medications. - Await pathology results. - Repeat colonoscopy in 3 - 5 years for surveillance based on pathology results. - Based on the biopsy results you will receive a phone call from GI clinic in 2-3 weeks to review the pathology results AND/OR your results will be faxed to your Primary care physician. - Return to primary care physician. Bryan Mariscal MD Bryan Mariscal MD 05/22/2018 10:19:49 AM This report has been signed electronically. Number of Addenda: 0 Note Initiated On: 05/22/2018 9:27 AM Estimated Blood Loss: Estimated blood loss was minimal.
[2018-05-22 10:27] VITALS: BP 116/84
== END 2018-05-22 10:37 | disposition home or self-care (01) ==
LOC: M OPP 07:40
PROVIDERS: ATTEND Internal Medicine Gastroenterology
DX: K64.8 Other hemorrhoids (principal); D12.2 Benign neoplasm of ascending colon; D12.3 Benign neoplasm of transverse colon; K57.30 Diverticulosis of large intestine without perforation or abscess without bleeding; K75.81 Nonalcoholic steatohepatitis (NASH); M79.7 Fibromyalgia; E78.00 Pure hypercholesterolemia, unspecified; Z79.891 Long term (current) use of opiate analgesic; Z79.899 Other long term (current) drug therapy; Z88.0 Allergy status to penicillin; Z88.2 Allergy status to sulfonamides; Z88.8 Allergy status to other drugs, medicaments and biological substances; Z87.448 Personal history of other diseases of urinary system; Z90.49 Acquired absence of other specified parts of digestive tract; Z80.0 Family history of malignant neoplasm of digestive organs

== ENCOUNTER → 2018-06-02 | Outpatient (CLI) | payer OTHER, MEDICARE ==
[~2018-06-02] MED LIST changes: -LIDOCAINE 2% INJ 100 MG/5 ML SDV (FOR ANES.) As Ordered ONE; -PROPOFOL 200 MG/20 ML VIAL As Ordered ONE
--- NOTE | 2018-06-09 01:24 | ECWPNPC ---
PATIENT NAME: LEVI MARTE : 1965 GENDER: FEMALE VISIT DATE: 06/02/2018 DISCHARGE DATE: 06/02/18 0947 VISIT LOCKED DATE TIME: PHYSICIAN: AIDA THOMPSON RESOURCE: AIDA THOMPSON REASON FOR APPOINTMENT 1. POST PROC HISTORY OF PRESENT ILLNESS HISTORY OF PRESENT ILLNESS: HERE FOR POST PROC. F/U.HAD RIGHT SYMPATHETIC GANGLION BLOCK ON 02-07-18..REPORTS GREATER 75% IMPROVEMENT IN PAIN POST PROCEDURE THEN PAIN HAS GRADUALLY RETURNED TO BASELINE.REPORTS IMPROVED SLEEP POST PROCEDURE.REPORTING IMPROVED MENTAL FOCUS AND ABILITY TO BE INVOLVED WITH FAMILY EVENTS MENTALLY DUE TO BETTER PAIN CONTROL POST PROCEDURE.RATING RIGHT ARM PAIN /10.PAIN IS AGGREVATED BY USE OF RIGHT ARM.SHE IS RIGHT HANDED.REPORTS DROPPING THINGS FREQUENTLY.THIS IS A WORK RELATED INJURY ON 06-09-2009.REPORTING LEFT WRIST PAIN HAS GOTTEN WORSE LATELY. PAIN THE PATIENT DESCRIBES THE PAIN... THE PATIENT DESCRIBES THE PAIN... THE PATIENT DESCRIBES THE PAIN... THE PATIENT DESCRIBES THE PAIN... THE PATIENT DESCRIBES THE PAIN... THE PATIENT DESCRIBES THE PAIN... FALL RISK SCREENING: SCREENING : NO FALLS IN THE PAST YEAR. CURRENT MEDICATIONS TAKING DULOXETINE HCL 30 MG CAPSULE DELAYED RELEASE PARTICLES 1 CAPSULE ORALLY TWICE A DAY TAKING GABAPENTIN 400 MG TABLET 1 TABLET ORALLY BID TAKING AMITRIPTYLINE HCL 30 MG TABLET 1 TABLET AT BEDTIME ORALLY ONCE A DAY TAKING OXYCODONE-ACETAMINOPHEN 5-325 MG TABLET 1 TABLET NEEDED ORALLY EVERY 4 HOURS NEEDED TAKING LIDOCAINE & ADHESIVE SHEET 5 % KIT EXTERNALLY TAKING OMEPRAZOLE 10 MG CAPSULE DELAYED RELEASE 1 CAPSULE ORALLY ONCE A DAY NOT-TAKING OXYCONTIN 10 MG TABLET ER 12 HOUR ABUSE-DETERRENT 1 TABLET ORALLY TWICE A DAY MEDICATION LIST REVIEWED AND RECONCILED WITH THE PATIENT PAST MEDICAL HISTORY KIDNEY STONES CTS, BILATERAL FIBROMYALGIA OSTEOARTHRITIS SCOLIOSIS A CHILD HIGH CHOLESTEROL FATTY LIVER DIVERTICULITIS ALLERGIES PSEUDOEPHEDRINE HCL: HIVES: ALLERGY SULFA (FOR ALLERGY USE ONLY): HIVES: ALLERGY SURGICAL HISTORY CHOLECYSTECTOMY 2008 CTR, RIGHT 2012 TUBAL LIGATION 2008 LITHOTRIPSY 2005 REMOVAL LIPOMA LEFT ABDOMEN 2014 FAMILY HISTORY NO FAMILY HISTORY DOCUMENTED. SOCIAL HISTORY GENERAL: TOBACCO USE ARE YOU A:NONSMOKER ORTHODOX [id number] OTHER LANGUAGE LANGUAGES SPOKEN:[place] LEARNING BARRIERS / SPECIAL NEEDS ORIENTED TO PLAN OF CARE: PATIENT, PAIN MANAGEMENT PATIENT, ORIENTED TO PLAN OF CARE: PATIENT, PAIN MANAGEMENT PATIENT. NEW PATIENT PAIN DIARY TODAY'S VISITNOTES FROM 0-10, WHAT LEVEL IS YOUR PAIN TODAY?0 PAIN CLINIC PFS, CLERGY, PUBLIC HEALTH REFERRALS PFS REFERRAL NEEDED?NO CLERGY REFERRAL NEEDED?NO PUBLIC HEALTH REFERRAL NEEDED?NO WAS THE PROVIDER NOTIFIED OF ANY PERTINENT INFO?YES HAS THE PATIENT BEEN EDUCATED REGARDING HIS/HER PLAN OF CARE?YES HAS THE PATIENT BEEN EDUCATED REGARDING PAIN, THE RISK FOR PAIN, THE IMPORTANCE OF EFFECTIVE PAIN MANAGEMENT, AND THE PAIN ASSESSMENT PROCESS?YES ADVANCE DIRECTIVE ADVANCE DIRECTIVE DISCUSSED WITH PATIENT:YES DECLINED REVIEWED 06/22/17 1131 BV. HOSPITALIZATION/MAJOR DIAGNOSTIC PROCEDURE SURGICALLY RELATED CONCUSION TEENAGER REVIEW OF SYSTEMS REVIEWED BY: PROVIDER: AIDA ALVAREZ . CONSTITUTIONAL: ANY CHANGE IN YOUR MEDICAL CONDITION? NO . CHILLS NO . FEVER NO . INFECTION: DO YOU HAVE NEW INFECTIONS? NO . DO YOU HAVE HISTORY OF MRSA? NO . MUSCULOSKELETAL: ANY NEW PATTERNS OF PAIN OR NUMBNESS? NO . GASTROENTEROLOGY: ANY NEW CHANGE IN BOWEL CONTROL? NO . GENITOURINARY: ANY NEW CHANGE IN BLADDER CONTROL? NO . IS THERE A CHANCE YOU COULD BE ? NO . HEMATOLOGY/LYMPH: DO YOU TAKE ANY BLOOD THINNERS? (FOR EXAMPLE- COUMADIN, PLAVIX, AGGRENOX, PLATEL, PRADAXA, OR XARELTO) NO . WHEN WAS YOUR LAST DOSE? DATE: TIME: . NEUROLOGY: HAVE YOU FALLEN IN THE PAST 12 MONTHS? NO . ANY NEW EXTREMITY NUMBNESS OR WEAKNESS? NO . CARDIOLOGY: DO YOU HAVE A PACEMAKER OR DEFIBRILLATOR? NO . RESPIRATORY: HAVE YOU BEEN SICK IN THE PAST WEEK? NO . FEVER NO . FLU LIKE SYMPTOMS? NO . COUGH NO . INTEGUMENTARY: DO YOU HAVE ANY RASHES OR OPEN SORES? NO . ALLERGIC/IMMUNO: ARE YOU ALLERGIC TO IV DYE? NO . ANY NEW ALLERGIES? NO . PSYCHIATRIC: DO YOU HAVE THOUGHTS OF HURTING YOURSELF OR SOMEONE ELSE? NO . ARE YOU ABUSED, NEGLECTED, OR IN AN UNSAFE ENVIRONMENT? NO . ENDOCRINOLOGY: ARE YOU DIABETIC? NO . OTHER: DO YOU NEED ANY PRESCRIPTIONS? NO . IF YES, PLEASE LIST: ____ . ANY NEW PROBLEMS WITH YOUR MEDICATIONS? NO . WHEN DID YOU LAST EAT? ____ . WHEN DID YOU LAST DRINK? ____ . WHAT DID YOU LAST DRINK? ____ . NAME OF PERSON DRIVING YOU HOME? ____ . DO YOU HAVE ANY OTHER QUESTIONS OR CONCERNS ER VISIT AT THE END OF APRIL FOR CHRONIC DIARRHEA, DIAGNOSED DIVERTICULITIS. . VITAL SIGNS WT 192 LBS, HT 63 IN, BMI 34.01 INDEX, BP 132/85 MM HG, HR 115 /MIN, RR 16 /MIN, TEMP 98.6 F, OXYGEN SAT % 95%, SAFE IN ENV? (Y/N) Y, NA INITIALS AW 0920, REVIEWED BY: ZAYNAB. EXAMINATION GENERAL EXAMINATION: LUNGS:LUNG SOUNDS ARE CLEAR. HEART:HEART RATE REGULAR. MUSCULOSKELETAL:*. NEUROLOGICAL: SENSORY:ABNORMAL -HYPERSENSITIVE TO LIGHT TOUCH RIGHT ARM AND HAND.DECREASED MUSCLE STRENGTH AND FORESTRY HUNTER STRENGTH RIGHT ARM AND HAND.. ASSESSMENTS PAIN OF RIGHT UPPER EXTREMITY - M79.601 (PRIMARY) PAIN IN RIGHT WRIST - M25.531 PAIN IN LEFT WRIST - M25.532 TREATMENT PAIN OF RIGHT UPPER EXTREMITY NOTES: RIGHT STELLATE GANGLION BLOCK W/C. PROCEDURES PN WORKMANS' COMP OPINION IN YOUR OPINION, WAS THE INCIDENT THAT THE PATIENT DESCRIBED THE COMPETENT MEDICAL CAUSE OF THIS INJURY/ILLNESS? YES ARE THE PATIENT'S COMPLAINTS CONSISTENT WITH HIS/HER HISTORY OF THE INJURY/ILLNESS? YES IS THE PATIENT'S HISTORY OF THE INJURY/ILLNESS CONSISTENT WITH YOUR OBJECTIVE FINDING? YES WHAT IS THE PERCENTAGE OF TEMPORARY IMPAIRMENT? MODERATE TO MARKED = 66.7% IS THE PATIENT WORKING? NO DOCTOR ON SITE: CRICKET SUH MD PROCEDURE CODES FA211 ESTABILISHED PATIENT [facility] FACILITY CHARGE DISPOSITION & COMMUNICATION FOLLOW UP POST (REASON: RIGHT STELLATE GANGLION BLOCK W/C) ELECTRONICALLY SIGNED BY KIM VEE ON 06/08/2018 AT 04:53 PM EST DISCLAIMER : THIS IS A VISIT SUMMARY EXTRACTED FROM THE [employer] CHART. IT IS NOT A COPY OF THE [employer] PROGRESS NOTE. MUKUL
== END ==
LOC: M PAIN 09:00
PROVIDERS: ATTEND Nurse Practitioner Family
DX: M79.601 Pain in right arm (principal); M25.531 Pain in right wrist; M25.532 Pain in left wrist; Z86.39 Personal history of other endocrine, nutritional and metabolic disease; M79.7 Fibromyalgia; M19.90 Unspecified osteoarthritis, unspecified site; E78.00 Pure hypercholesterolemia, unspecified; Z88.2 Allergy status to sulfonamides; Z88.8 Allergy status to other drugs, medicaments and biological substances; Z79.899 Other long term (current) drug therapy

== ENCOUNTER → 2018-07-25 | Outpatient (CLI) | payer OTHER, MEDICARE ==
[~2018-07-25] MED LIST changes: -/CELE20CA PO; -/PANT40TA PO; +CELE1CAP4 PO; +CYMB1CAP4 PO; -DULO20CA PO; -DULO30CA PO; +DULO30CA9 PO; +PROT1TAB2 PO
--- NOTE | 2018-08-08 02:06 | ECWPNPC ---
PATIENT NAME: LEVI MARTE : 1965 GENDER: FEMALE VISIT DATE: 07/25/2018 DISCHARGE DATE: 07/25/18 1421 VISIT LOCKED DATE TIME: PHYSICIAN: CRICKET TOVAR MD RESOURCE: CRICKET TOVAR MD REASON FOR APPOINTMENT 1. PRE SEDATE FOR STELLATE GANGLION BLOCK W/C HISTORY OF PRESENT ILLNESS HISTORY OF PRESENT ILLNESS: PAIN THE PATIENT DESCRIBES THE PAIN... 53 YEAR OLD FEMALE PATIENT WITH A HISTORY OF CHRONIC RIGHT UPPER EXTREMITY PAIN. THE PATIENT DESCRIBES THE PAIN ACHING, THROBBING, TENDER, SHARP, SORE AND CONTINUOUS WITH A PAIN SCORE OF 8-10/10. THE PATIENT WAS HURT IN A WORK RELATED INJURY ON 06/09/2009 WHILE WORKING FOR [employer] AND STATES IT IS FROM REPETITIVE MOVEMENT WHILE TYPING. THE PATIENT HAD CARPAL TUNNEL SURGERY FOLLOWING HER INJURY. THE PATIENT HAD A STELLATE GANGLION BLOCK DONE ON 02/07/2018 AND STATES SHE HAD RELIEF FOR MORE THAN 6 WEEKS. PATIENT STATES SHE HAS DONE PHYSICAL THERAPY IN THE PAST BUT IT DID NOT HELP MUCH. THE PATIENT SAYS THAT SHE HAS BEEN CONTROLLING HER PAIN WITH MEDICATION MANAGEMENT MAINLY. PATIENT DENIES UNEXPLAINABLE WEIGHT LOSS, FEVER, CHILLS, NEW CHANGES ON HER URINARY OR BOWEL CONTROL. FALL RISK SCREENING: SCREENING :NO FALLS REPORTED IN THE LAST YEAR CURRENT MEDICATIONS TAKING DULOXETINE HCL 30 MG CAPSULE DELAYED RELEASE PARTICLES 1 CAPSULE ORALLY TWICE A DAY TAKING GABAPENTIN 400 MG TABLET 1 TABLET ORALLY BID TAKING AMITRIPTYLINE HCL 30 MG TABLET 1 TABLET AT BEDTIME ORALLY ONCE A DAY TAKING OXYCODONE-ACETAMINOPHEN 5-325 MG TABLET 1 TABLET NEEDED ORALLY EVERY 4 HOURS NEEDED TAKING LIDOCAINE & ADHESIVE SHEET 5 % KIT EXTERNALLY TAKING OMEPRAZOLE 10 MG CAPSULE DELAYED RELEASE 1 CAPSULE ORALLY ONCE A DAY NOT-TAKING OXYCONTIN 10 MG TABLET ER 12 HOUR ABUSE-DETERRENT 1 TABLET ORALLY TWICE A DAY MEDICATION LIST REVIEWED AND RECONCILED WITH THE PATIENT PAST MEDICAL HISTORY KIDNEY STONES CTS, BILATERAL FIBROMYALGIA OSTEOARTHRITIS SCOLIOSIS A CHILD HIGH CHOLESTEROL FATTY LIVER DIVERTICULITIS CRPS RIGHT ARM ALLERGIES PSEUDOEPHEDRINE HCL: HIVES - ALLERGY SULFA (FOR ALLERGY USE ONLY): HIVES - ALLERGY SURGICAL HISTORY CHOLECYSTECTOMY 2008 CTR, RIGHT 2012 TUBAL LIGATION 2007 LITHOTRIPSY 2004 REMOVAL LIPOMA LEFT ABDOMEN 2014 FAMILY HISTORY FATHER: ALIVE 77 YRS, ARTHRITIS, CANCER GALL BLADDER, HYPERTENSION MOTHER: ALIVE 76 YRS, FIBROMYALGIA, ALZHEIMER'S SIBLINGS: ALIVE, 1 BROTHER TESTICULAR CANCER, 1 BROTHER METASTATIC COLON CANCER SOCIAL HISTORY GENERAL: TOBACCO USE ARE YOU A:NONSMOKER LATEX QUESTIONNAIRE LATEX ALLERGY : HAVE YOU EVER DEVELOPED ANY TYPE OF REACTION AFTER HANDLING LATEX PRODUCTS SUCH RUBBER GLOVES, CONDOMS, DIAPHRAGMS, BALLOONS, SOCKS, OR UNDERWEAR?NO LATEX ALLERGY : HAVE YOU EVER DEVELOPED ANY TYPE OF REACTION DURING OR AFTER DENTAL APPOINTMENT, VAGINAL/RECTAL EXAMINATION, SURGICAL PROCEDURE, OR ANY OTHER EXPOSURE?NO LATEX RISK : HAVE YOU EVER HAD ANY DIFFICULTY BREATHING OR HIVES AFTER EATING OR HANDLING ANY FRUITS, OR VEGETABLES; SUCH KIWI, BANANAS, STONE FRUITS, OR CHESTNUTSNO LATEX RISK : DO YOU HAVE A PREVIOUS PERSONAL HISTORY OF MORE THAN NINE SURGERIES, SPINA BIFIDA, OR REPEATED CATHERTIZATIONS? NO LATEX RISK : ARE YOU FREQUENTLY EXPOSED TO LATEX PRODUCTS IN YOUR OCCUPATION?NO DATE ASKED : 07/25/2018 ALCOHOL SCREENING DID YOU HAVE A DRINK CONTAINING ALCOHOL IN THE PAST YEAR?NO POINTS0 INTERPRETATIONNEGATIVE RECREATIONAL DRUG USE DRUG USE?NO CAFFEINE CAFFEINE USE?YES 1 CUP COFFEE DAILY SPIRITISM [id number] OTHER LANGUAGE LANGUAGES SPOKEN:URDU LEARNING BARRIERS / SPECIAL NEEDS ORIENTED TO PLAN OF CARE: PATIENT, PAIN MANAGEMENT PATIENT, ORIENTED TO PLAN OF CARE: PATIENT, PAIN MANAGEMENT PATIENT. NEW PATIENT PAIN DIARY TODAY'S VISITNOTES FROM 0-10, WHAT LEVEL IS YOUR PAIN TODAY?10 PAIN CLINIC PFS, CLERGY, PUBLIC HEALTH REFERRALS PFS REFERRAL NEEDED?NO CLERGY REFERRAL NEEDED?NO PUBLIC HEALTH REFERRAL NEEDED?NO WAS THE PROVIDER NOTIFIED OF ANY PERTINENT INFO?YES HAS THE PATIENT BEEN EDUCATED REGARDING HIS/HER PLAN OF CARE?YES HAS THE PATIENT BEEN EDUCATED REGARDING PAIN, THE RISK FOR PAIN, THE IMPORTANCE OF EFFECTIVE PAIN MANAGEMENT, AND THE PAIN ASSESSMENT PROCESS?YES ADVANCE DIRECTIVE ADVANCE DIRECTIVE DISCUSSED WITH PATIENT:YES DECLINED REVIEWED 06/22/17 1131 BV. HOSPITALIZATION/MAJOR DIAGNOSTIC PROCEDURE SURGICALLY RELATED CONCUSION TEENAGER REVIEW OF SYSTEMS REVIEWED BY: PROVIDER: CRICKET TOVAR MD . CONSTITUTIONAL: ANY CHANGE IN YOUR MEDICAL CONDITION? NO . CHILLS NO . FEVER NO . INFECTION: DO YOU HAVE NEW INFECTIONS? NO . DO YOU HAVE HISTORY OF MRSA? NO . MUSCULOSKELETAL: ANY NEW PATTERNS OF PAIN OR NUMBNESS? NO . GASTROENTEROLOGY: ANY NEW CHANGE IN BOWEL CONTROL? NO . GENITOURINARY: ANY NEW CHANGE IN BLADDER CONTROL? NO . IS THERE A CHANCE YOU COULD BE ? NO . HEMATOLOGY/LYMPH: DO YOU TAKE ANY BLOOD THINNERS? (FOR EXAMPLE- COUMADIN, PLAVIX, AGGRENOX, PLATEL, PRADAXA, OR XARELTO) NO . WHEN WAS YOUR LAST DOSE? DATE: TIME: . NEUROLOGY: HAVE YOU FALLEN IN THE PAST 12 MONTHS? NO . ANY NEW EXTREMITY NUMBNESS OR WEAKNESS? NO . CARDIOLOGY: DO YOU HAVE A PACEMAKER OR DEFIBRILLATOR? NO . RESPIRATORY: HAVE YOU BEEN SICK IN THE PAST WEEK? NO . FEVER NO . FLU LIKE SYMPTOMS? NO . COUGH NO . INTEGUMENTARY: DO YOU HAVE ANY RASHES OR OPEN SORES? NO . ALLERGIC/IMMUNO: ARE YOU ALLERGIC TO IV DYE? NO . ANY NEW ALLERGIES? NO . PSYCHIATRIC: DO YOU HAVE THOUGHTS OF HURTING YOURSELF OR SOMEONE ELSE? NO . ARE YOU ABUSED, NEGLECTED, OR IN AN UNSAFE ENVIRONMENT? NO . ENDOCRINOLOGY: ARE YOU DIABETIC? NO . OTHER: DO YOU NEED ANY PRESCRIPTIONS? NO . IF YES, PLEASE LIST: ____ . ANY NEW PROBLEMS WITH YOUR MEDICATIONS? NO . WHEN DID YOU LAST EAT? ____ . WHEN DID YOU LAST DRINK? ____ . WHAT DID YOU LAST DRINK? ____ . NAME OF PERSON DRIVING YOU HOME? ____ . DO YOU HAVE ANY OTHER QUESTIONS OR CONCERNS NO . VITAL SIGNS WT 193.8 LBS, HT 63 IN, BMI 34.33 INDEX, BP 120/84 MM HG, HR 102 /MIN, RR 16 /MIN, TEMP 97.3 F, OXYGEN SAT % 98%, NA INITIALS SC 13:23, REVIEWED BY: MATEO. EXAMINATION GENERAL EXAMINATION: PATIENT IS ALERT O X 3 AND COOPERATIVE. LUNGS CLEAR, TO AUSCULTATION. HEART: NO MURMURS OR GALLOPS; FACIAL CRANIAL NERVES ARE GROSSLY NORMAL. GOOD SYMMETRY OF FACIAL MUSCLE MOVEMENT. NORMAL VISUAL PIÑA. PATIENT CAN ABDUCT THE UPPER EXTREMITIES TO SHOULDER LEVEL. HAND TRUCK DRIVER'S OFFSIDER OVER THE RIGHT SIDE IS REDUCED. RIGHT ARM IS WEAKER AT EXTENSION AND FLEXION. THERE IS HYPERPATHIA WITH ALLODYNIA OVER THE RIGHT ARM AND FOREARM. 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 MARTE'S PAIN MANAGEMENT CASE. DUE TO THE RIGHT UPPER EXTREMITY NEURALGIA AND THE RESULTS THE PATIENT HAD IN THE PAST FOLLOWING THE BLOCK, I WOULD LIKE TO PROCEED WITH ANOTHER STELLATE GANGLION BLOCK. WE DISCUSSED THE BENEFITS, RISKS, AND ALTERNATIVES OF THE INJECTION AND THE PATIENT WOULD LIKE TO PROCEED. THE PATIENT WOULD LIKE TO MOVE FORWARD WITH IV SEDATION DUE TO PAIN AND ANXIETY ASSOCIATED WITH THE INJECTION. THE PATIENT WILL FOLLOW UP WITH A NURSE PRACTITIONER AFTER THE INJECTION. INSTRUCTIONS WERE GIVEN, QUESTIONS WERE ANSWERED, PATIENT REPORTS UNDERSTANDING AND AGREES WITH THE PLAN. I, BELIA WALLACE, DOCUMENTED THE ABOVE INFORMATION ACTING A SCRIBE FOR DR. TOVAR. I HAVE REVIEWED THE ABOVE DOCUMENT, WRITTEN BY BELIA LANG AND I VERIFY THAT IT IS ACCURATE.. PROCEDURES PN WORKMANS' COMP OPINION IN YOUR OPINION, WAS THE INCIDENT THAT THE PATIENT DESCRIBED THE COMPETENT MEDICAL CAUSE OF THIS INJURY/ILLNESS? YES ARE THE PATIENT'S COMPLAINTS CONSISTENT WITH HIS/HER HISTORY OF THE INJURY/ILLNESS? YES IS THE PATIENT'S HISTORY OF THE INJURY/ILLNESS CONSISTENT WITH YOUR OBJECTIVE FINDING? YES WHAT IS THE PERCENTAGE OF TEMPORARY IMPAIRMENT? MODERATE TO MARKED = 66.7% IS THE PATIENT WORKING? NO DOCTOR ON SITE: CRICKET SUH MD PROCEDURE CODES G8427 CURRENT MEDS W/DOSAGES DOCUMENTED G8730 PAIN ASSESS POS TOOL F/U PLAN DOC FA211 ESTABILISHED PATIENT [facility] FACILITY CHARGE DISPOSITION & COMMUNICATION FOLLOW UP 6 WEEKS AFTER WITH AIDA (REASON: RIGHT STELLATE GANGLION W/ IV SEDATION BY August) ELECTRONICALLY SIGNED BY CRICKET TOVAR MD, MD ON 08/07/2018 AT 07:03 PM EDT DISCLAIMER : THIS IS A VISIT SUMMARY EXTRACTED FROM THE [employer] CHART. IT IS NOT A COPY OF THE [employer] PROGRESS NOTE. MUKUL
== END ==
LOC: M PAIN 13:00
PROVIDERS: ATTEND Anesthesiology
DX: G89.29 Other chronic pain (principal); M79.2 Neuralgia and neuritis, unspecified; M79.7 Fibromyalgia; M19.90 Unspecified osteoarthritis, unspecified site; E78.00 Pure hypercholesterolemia, unspecified; Z79.899 Other long term (current) drug therapy; Z88.2 Allergy status to sulfonamides; Z88.8 Allergy status to other drugs, medicaments and biological substances

== ENCOUNTER → 2018-08-22 | Outpatient (CLI) | payer OTHER, MEDICARE ==
[~2018-08-22] MED LIST changes: +BUPIVACAINE HCL 0.25% 30 ML VIAL As Ordered ONE; +ISOVUE-M 300 61% 15ML VIAL (Q9967) As Ordered ONE; +LIDOCAINE 1% SDV INJ 30 ML VIAL As Ordered ONE; +MIDAZOLAM INJ 2 MG/2 ML VIAL (J2250) As Ordered ONE; +TRIAMCINOLONE ACETONIDE SUSP 40 MG/ML VIAL (J3301) As Ordered ONE; +fentaNYL 100 MCG/2 ML INJECTION (J3010) As Ordered ONE
--- NOTE | 2018-08-24 10:57 | REP ---
Fluoro guidance The images were reviewed with Dr. rosas. The portable C-arm was provided in the OR for Dr. Jorge Matta for fluoroscopic guidance. Four intraoperative last image hold fluoro spot films were obtained for needle placement verification for right cervical stellate ganglion block. The films are on the PACS system and are available for review. 9 seconds of fluoroscopy time was utilized for this procedure. Reviewed by DOMI Barrientos 08/23/2018 03:03 P Electronically Signed by Evans Rosas MD 08/24/2018 10:46 A
--- NOTE | 2018-09-01 03:45 | ECWPNPC ---
PATIENT NAME: LEVI MARTE : 1965 GENDER: FEMALE VISIT DATE: 08/22/2018 DISCHARGE DATE: 08/22/18843 VISIT LOCKED DATE TIME: PHYSICIAN: CRICKET TOVAR MD RESOURCE: CRICKET TOVAR MD REASON FOR APPOINTMENT 1. STELLATE GANGLION BLOCK W/C HISTORY OF PRESENT ILLNESS HISTORY OF PRESENT ILLNESS: PAIN THE PATIENT DESCRIBES THE PAIN... FALL RISK SCREENING: SCREENING :NO FALLS REPORTED IN THE LAST YEAR CURRENT MEDICATIONS TAKING DULOXETINE HCL 30 MG CAPSULE DELAYED RELEASE PARTICLES 1 CAPSULE ORALLY TWICE A DAY, NOTES: 08/21/18 TAKING GABAPENTIN 400 MG TABLET 1 TABLET ORALLY BID, NOTES: 08/22/18 0700 TAKING AMITRIPTYLINE HCL 30 MG TABLET 1 TABLET AT BEDTIME ORALLY ONCE A DAY, NOTES: 08/21/18 TAKING OXYCODONE-ACETAMINOPHEN 5-325 MG TABLET 1 TABLET NEEDED ORALLY EVERY 4 HOURS NEEDED, NOTES: 08/22/18 0700 TAKING LIDOCAINE & ADHESIVE SHEET 5 % KIT EXTERNALLY , NOTES: 08/21/18 TAKING OMEPRAZOLE 10 MG CAPSULE DELAYED RELEASE 1 CAPSULE ORALLY ONCE A DAY, NOTES: NONE LATELY DISCONTINUED OXYCONTIN 10 MG TABLET ER 12 HOUR ABUSE-DETERRENT 1 TABLET ORALLY TWICE A DAY MEDICATION LIST REVIEWED AND RECONCILED WITH THE PATIENT PAST MEDICAL HISTORY KIDNEY STONES CTS, BILATERAL FIBROMYALGIA OSTEOARTHRITIS SCOLIOSIS A CHILD HIGH CHOLESTEROL FATTY LIVER DIVERTICULITIS CRPS RIGHT ARM ALLERGIES PSEUDOEPHEDRINE HCL: HIVES - ALLERGY SULFA (FOR ALLERGY USE ONLY): HIVES - ALLERGY SURGICAL HISTORY CHOLECYSTECTOMY 2008 CTR, RIGHT 2012 TUBAL LIGATION 2007 LITHOTRIPSY 2004 REMOVAL LIPOMA LEFT ABDOMEN 2014 FAMILY HISTORY FATHER: ALIVE 77 YRS, ARTHRITIS, CANCER GALL BLADDER, HYPERTENSION MOTHER: ALIVE 76 YRS, FIBROMYALGIA, ALZHEIMER'S SIBLINGS: ALIVE, 1 BROTHER TESTICULAR CANCER, 1 BROTHER METASTATIC COLON CANCER SOCIAL HISTORY GENERAL: TOBACCO USE ARE YOU A:NONSMOKER PAIN CLINIC PFS, CLERGY, PUBLIC HEALTH REFERRALS PFS REFERRAL NEEDED?NO CLERGY REFERRAL NEEDED?NO PUBLIC HEALTH REFERRAL NEEDED?NO WAS THE PROVIDER NOTIFIED OF ANY PERTINENT INFO?YES HAS THE PATIENT BEEN EDUCATED REGARDING HIS/HER PLAN OF CARE?YES HAS THE PATIENT BEEN EDUCATED REGARDING PAIN, THE RISK FOR PAIN, THE IMPORTANCE OF EFFECTIVE PAIN MANAGEMENT, AND THE PAIN ASSESSMENT PROCESS?YES LATEX QUESTIONNAIRE LATEX ALLERGY : HAVE YOU EVER DEVELOPED ANY TYPE OF REACTION AFTER HANDLING LATEX PRODUCTS SUCH RUBBER GLOVES, CONDOMS, DIAPHRAGMS, BALLOONS, SOCKS, OR UNDERWEAR?NO LATEX ALLERGY : HAVE YOU EVER DEVELOPED ANY TYPE OF REACTION DURING OR AFTER DENTAL APPOINTMENT, VAGINAL/RECTAL EXAMINATION, SURGICAL PROCEDURE, OR ANY OTHER EXPOSURE?NO LATEX RISK : HAVE YOU EVER HAD ANY DIFFICULTY BREATHING OR HIVES AFTER EATING OR HANDLING ANY FRUITS, OR VEGETABLES; SUCH KIWI, BANANAS, STONE FRUITS, OR CHESTNUTSNO LATEX RISK : DO YOU HAVE A PREVIOUS PERSONAL HISTORY OF MORE THAN NINE SURGERIES, SPINA BIFIDA, OR REPEATED CATHERTIZATIONS? NO LATEX RISK : ARE YOU FREQUENTLY EXPOSED TO LATEX PRODUCTS IN YOUR OCCUPATION?NO DATE ASKED : 07/25/2018 CAFFEINE CAFFEINE USE?YES 1 CUP COFFEE DAILY ADVANCE DIRECTIVE ADVANCE DIRECTIVE DISCUSSED WITH PATIENT:YES DECLINED QUAKER [id number] OTHER LANGUAGE LANGUAGES SPOKEN:CZECH NEW PATIENT PAIN DIARY TODAY'S VISITNOTES FROM 0-10, WHAT LEVEL IS YOUR PAIN TODAY?10 ALCOHOL SCREENING DID YOU HAVE A DRINK CONTAINING ALCOHOL IN THE PAST YEAR?NO POINTS0 INTERPRETATIONNEGATIVE RECREATIONAL DRUG USE DRUG USE?NO LEARNING BARRIERS / SPECIAL NEEDS ORIENTED TO PLAN OF CARE: PATIENT, PAIN MANAGEMENT PATIENT, ORIENTED TO PLAN OF CARE: PATIENT, PAIN MANAGEMENT PATIENT. REVIEWED 06/22/17 1131 BV. 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 CONSTITUTIONAL: ANY CHANGE IN YOUR MEDICAL CONDITION? NO . CHILLS NO . FEVER NO . INFECTION: DO YOU HAVE NEW INFECTIONS? NO . DO YOU HAVE HISTORY OF MRSA? NO . MUSCULOSKELETAL: ANY NEW PATTERNS OF PAIN OR NUMBNESS? NO . GASTROENTEROLOGY: ANY NEW CHANGE IN BOWEL CONTROL? NO . GENITOURINARY: ANY NEW CHANGE IN BLADDER CONTROL? NO . IS THERE A CHANCE YOU COULD BE ? NO . HEMATOLOGY/LYMPH: DO YOU TAKE ANY BLOOD THINNERS? (FOR EXAMPLE- COUMADIN, PLAVIX, AGGRENOX, PLATEL, PRADAXA, OR XARELTO) NO . WHEN WAS YOUR LAST DOSE? DATE: TIME: . NEUROLOGY: HAVE YOU FALLEN IN THE PAST 12 MONTHS? NO . ANY NEW EXTREMITY NUMBNESS OR WEAKNESS? NO . CARDIOLOGY: DO YOU HAVE A PACEMAKER OR DEFIBRILLATOR? NO . RESPIRATORY: HAVE YOU BEEN SICK IN THE PAST WEEK? NO . FEVER NO . FLU LIKE SYMPTOMS? NO . COUGH YES - STATES IS DUE TO ALLERGIES . INTEGUMENTARY: DO YOU HAVE ANY RASHES OR OPEN SORES? NO . ALLERGIC/IMMUNO: ARE YOU ALLERGIC TO IV DYE? NO . ANY NEW ALLERGIES? NO . PSYCHIATRIC: DO YOU HAVE THOUGHTS OF HURTING YOURSELF OR SOMEONE ELSE? NO . ARE YOU ABUSED, NEGLECTED, OR IN AN UNSAFE ENVIRONMENT? NO . ENDOCRINOLOGY: ARE YOU DIABETIC? NO . OTHER: DO YOU NEED ANY PRESCRIPTIONS? NO . IF YES, PLEASE LIST: ____ . ANY NEW PROBLEMS WITH YOUR MEDICATIONS? NO . WHEN DID YOU LAST EAT? 08/21/18 1900 . WHEN DID YOU LAST DRINK? 08/22/18 0700 . WHAT DID YOU LAST DRINK? COFFEE . NAME OF PERSON DRIVING YOU HOME? NATALIA . DO YOU HAVE ANY OTHER QUESTIONS OR CONCERNS NO . VITAL SIGNS WT 187.8 LBS, HT 63 IN, BMI 33.26 INDEX, BP 119/81 MM HG, HR 93 /MIN, RR 16 /MIN, TEMP 98.8 F, OXYGEN SAT % 96%, NA INITIALS AW 1246, REVIEWED BY: MATEO. 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 YES ARE THE PATIENT'S COMPLAINTS CONSISTENT WITH HIS/HER HISTORY OF THE INJURY/ILLNESS? YES IS THE PATIENT'S HISTORY OF THE INJURY/ILLNESS CONSISTENT WITH YOUR OBJECTIVE FINDING? YES WHAT IS THE PERCENTAGE OF TEMPORARY IMPAIRMENT? MODERATE TO MARKED = 66.7% IS THE PATIENT WORKING? NO DOCTOR ON SITE: CRICKET SUH MD PRE PROCEDURE DIAGNOSIS RIGHT ARM NEURALGIA. POST PROCEDURE DIAGNOSIS RIGHT ARM NEURALGIA. PROCEDURE RIGHT STELLATE GANGLION BLOCK UNDER FLUOROSCOPIC GUIDANCE WITH IV SEDATION. SURGEON DR. CRICKET TOVAR. GROUNDWATER CONSULTANT NONE. ANESTHESIA LOCAL WITH IV SEDATION. PRE PROCEDURE NOTE THE PATIENT HAS A HISTORY OF RIGHT ARM PAIN. I WENT THROUGH THE RISKS, ALTERNATIVES, AND BENEFITS ASSOCIATED WITH THIS PROCEDURE. THE PATIENT WANTS TO HAVE IV SEDATION DUE TO ANXIETY AND DISCOMFORT THAT THIS PROCEDURE WILL CAUSE TO HER. THE PATIENT EXPRESSED THAT SHE WOULD LIKE TO PROCEED UNDER IV SEDATION. THE PATIENT DENIES UNEXPLAINABLE WEIGHT LOSS, FEVER, CHILLS, OR CHANGES IN HER URINARY OR BOWEL CONTROL. DESCRIPTION OF PROCEDURE AFTER CONSENT WAS TAKEN, THE PATIENT WAS BROUGHT TO THE PROCEDURE ROOM AND PLACED IN THE SUPINE POSITION. THE RIGHT NECK AREA WAS CLEANED WITH CHLORAPREP SOLUTION AND DRAPED ASEPTICALLY. THE PROCEDURE WAS DONE UNDER STERILE CONDITIONS. UNDER FLUOROSCOPIC GUIDANCE, TARGET POINT WAS SELECTED AT THE LEVEL APPROXIMATELY OF T7. I ADVANCED A HAVE 21G ULTRASOUND NEEDLE WITH THE HELP OF AN ULTRASOUND DEVICE. I PUT THE NEEDLE BEHIND THE CAROTID ARTERY AND ANTERIOR TO THE LONGUS COLLI MUSCLE. I USED THE ULTRASOUND TO CHECK THE VASCULAR STRUCTURES AND AVOID NERVES. WHEN APPROPRIATE POSITION OF THE NEEDLE WAS ACHIEVED, ISOVUE M DYE 30%, 1/4 ML, WAS INJECTED SHOWING SPREAD OF THE DYE. THEN A SOLUTION OF 10 ML OF BUPIVACAINE 0.25% AND LIDOCAINE 1%, 50/50 WAS INJECTED WITH KENALOG 40 MG. THE PATIENT RECEIVED FENTANYL 50 MCG IV AND VERSED 1 MG IV IN DIVIDED DOSES.THERE WAS NO EVIDENCE OF BLOOD, PARESTHESIA, OR CEREBROSPINAL FLUID. THE PATIENT WAS SENT TO THE RECOVERY ROOM. THE PATIENT WAS MOVING EXTREMITIES AND DOING WELL. THERE WERE NO COMPLICATIONS DURING THE PROCEDURE. FLUOROSCOPY TIME WAS 9 SECONDS. FACE TO FACE TIME WAS 24 MINUTES. POST PROCEDURE NOTE AFTER THE PROCEDURE, THE PATIENT WAS HAVING EVIDENCE OF PTOSIS, EVIDENCE OF AN ADEQUATE BLOCK. I DISCUSSED ALTERNATIVES. WE WILL SEE THE PATIENT IN A FOLLOWUP. WE ARE LOOKING FOR LONG LASTING PAIN RELIEF WITH THIS INTERVENTION. THERE WERE NO COMPLICATIONS. I, ERVIN BOOKER, DOCUMENTED THE ABOVE INFORMATION ACTING A SCRIBE FOR DR. TOVAR. I HAVE REVIEWED THE ABOVE DOCUMENT, WRITTEN BY ERVIN GILIBDiandra AND I VERIFY THAT IT IS ACCURATE. PROCEDURE CODES 6045F RADXPS IN END [id number] PXD [id number] NEEDLE LOCALIZATION BY XRAY, MODIFIERS: [id number] N BLOCK STELLATE GANGLION, MODIFIERS: RT [address] MOD SED SAME PHYS/QHP 5/>YRS 56267 MOD SED SAME PHYS/QHP EA DISPOSITION & COMMUNICATION FOLLOW UP 3 WEEKS ELECTRONICALLY SIGNED BY CRICKET TOVAR MD, MD ON 08/30/2018 AT 04:33 PM EDT DISCLAIMER : THIS IS A VISIT SUMMARY EXTRACTED FROM THE [employer] CHART. IT IS NOT A COPY OF THE [employer] PROGRESS NOTE. MTDD
== END ==
LOC: M PAIN 13:00
PROVIDERS: ATTEND Anesthesiology
DX: G89.29 Other chronic pain (principal); M79.2 Neuralgia and neuritis, unspecified; M79.7 Fibromyalgia; M19.90 Unspecified osteoarthritis, unspecified site; E78.00 Pure hypercholesterolemia, unspecified; Z79.899 Other long term (current) drug therapy; Z88.2 Allergy status to sulfonamides; Z88.8 Allergy status to other drugs, medicaments and biological substances
CPT/HCPCS: 64510; 77003; 99152; 99153; J2250; J3010; J3301; Q9967

== ENCOUNTER → 2018-09-11 | Outpatient (CLI) | payer OTHER, MEDICARE ==
[~2018-09-11] MED LIST changes: -BUPIVACAINE HCL 0.25% 30 ML VIAL As Ordered ONE; -ISOVUE-M 300 61% 15ML VIAL (Q9967) As Ordered ONE; -LIDOCAINE 1% SDV INJ 30 ML VIAL As Ordered ONE; -MIDAZOLAM INJ 2 MG/2 ML VIAL (J2250) As Ordered ONE; -TRIAMCINOLONE ACETONIDE SUSP 40 MG/ML VIAL (J3301) As Ordered ONE; -fentaNYL 100 MCG/2 ML INJECTION (J3010) As Ordered ONE
--- NOTE | 2018-09-23 23:37 | ECWPNPC ---
PATIENT NAME: LEVI MARTE : 1965 GENDER: FEMALE VISIT DATE: 09/11/2018 DISCHARGE DATE: 09/11/18 1343 VISIT LOCKED DATE TIME: PHYSICIAN: CRICKET TOVAR MD RESOURCE: CRICKET TOVAR MD REASON FOR APPOINTMENT 1. POST PROC HISTORY OF PRESENT ILLNESS HISTORY OF PRESENT ILLNESS: PAIN THE PATIENT DESCRIBES THE PAIN... 53 YEAR OLD FEMALE PATIENT WITH A HISTORY OF CHRONIC RIGHT UPPER EXTREMITY PAIN. THE PATIENT DESCRIBES THE PAIN ACHING, SHARP, SORE, TENDER, AND DAILY WITH A PAIN SCORE OF 5-9/10 ON THE LEFT SIDE DEPENDING ON PHYSICAL ACTIVITY. THE PATIENT WAS HURT IN A WORK RELATED INJURY ON 06/09/2009 WHILE WORKING FOR THE [employer] AND STATES IT WAS CAUSED BY REPETITIVE MOVEMENT FROM TYPING. THE PATIENT SAYS SHE HAD CARPAL TUNNEL SURGERY FOLLOWING HER INJURY. THE PATIENT HAD A RIGHT STELLATE GANGLION BLOCK DONE ON 08/22/2018 WHICH IS PROVIDING GOOD PAIN RELIEF AND MOBILITY. THE PATIENT SAYS SHE IS NOW EXPERIENCING PAIN IN HER LEFT HAND. PATIENT DENIES UNEXPLAINABLE WEIGHT LOSS, FEVER, CHILLS, NEW CHANGES ON HER URINARY OR BOWEL CONTROL. FALL RISK SCREENING: SCREENING :NO FALLS REPORTED IN THE LAST YEAR CURRENT MEDICATIONS TAKING DULOXETINE HCL 30 MG CAPSULE DELAYED RELEASE PARTICLES 1 CAPSULE ORALLY TWICE A DAY TAKING GABAPENTIN 400 MG TABLET 1 TABLET ORALLY BID TAKING AMITRIPTYLINE HCL 30 MG TABLET 1 TABLET AT BEDTIME ORALLY ONCE A DAY TAKING OXYCODONE-ACETAMINOPHEN 5-325 MG TABLET 1 TABLET NEEDED ORALLY EVERY 4 HOURS NEEDED TAKING LIDOCAINE & ADHESIVE SHEET 5 % KIT 1 PATCH EXTERNALLY DAILY TAKING OMEPRAZOLE 10 MG CAPSULE DELAYED RELEASE 1 CAPSULE ORALLY ONCE A DAY MEDICATION LIST REVIEWED AND RECONCILED WITH THE PATIENT PAST MEDICAL HISTORY KIDNEY STONES CTS, BILATERAL FIBROMYALGIA OSTEOARTHRITIS SCOLIOSIS A CHILD HIGH CHOLESTEROL FATTY LIVER DIVERTICULITIS CRPS RIGHT ARM PAIN LEFT WRIST/HAND ALLERGIES PSEUDOEPHEDRINE HCL: HIVES - ALLERGY SULFA (FOR ALLERGY USE ONLY): HIVES - ALLERGY SURGICAL HISTORY CHOLECYSTECTOMY 2008 CTR, RIGHT 2012 TUBAL LIGATION 2008 LITHOTRIPSY 2005 REMOVAL LIPOMA LEFT ABDOMEN 2014 FAMILY HISTORY FATHER: ALIVE 77 YRS, ARTHRITIS, CANCER GALL BLADDER, HYPERTENSION MOTHER: ALIVE 76 YRS, FIBROMYALGIA, ALZHEIMER'S SIBLINGS: ALIVE, 1 BROTHER TESTICULAR CANCER, 1 BROTHER METASTATIC COLON CANCER 3 SON(S) , 1 DAUGHTER(S) . YOUNGEST SON-PKU, ASTHMA, EXCEMA. SOCIAL HISTORY GENERAL: TOBACCO USE ARE YOU A:NONSMOKER EDUCATION LEVEL OF EDUCATION:HIGH SCHOOL LANGUAGE LANGUAGES SPOKEN:TANZANIAN DOMESTIC VIOLENCE DO YOU FEEL SAFE IN YOUR ENVIRONMENT?YES NEW PATIENT PAIN DIARY TODAY'S VISITNOTES RECREATIONAL DRUG USE DRUG USE?NO LEARNING BARRIERS / SPECIAL NEEDS BARRIERS TO LEARNING?NO HEARING IMPAIRED?YES : SOME HEARING LOSS RIGHT EAR VISION IMPAIRED?YES :CORRECTIVE LENSES READING GLASSES COGNITIVELY IMPAIRED?NO READINESS TO LEARN?YES LEARNING PREFERENCES?YES :DEMONSTRATION/VERBAL INSTRUCTION LEARNING CAPABILITIES PRESENT?YES EMOTIONAL BARRIERS?NO SPECIAL DEVICES?NO HOME SALES CONSULTANT NEEDED?NO PAIN CLINIC PFS, CLERGY, PUBLIC HEALTH REFERRALS PFS REFERRAL NEEDED?NO CLERGY REFERRAL NEEDED?NO PUBLIC HEALTH REFERRAL NEEDED?NO WAS THE PROVIDER NOTIFIED OF ANY PERTINENT INFO? N/A HAS THE PATIENT BEEN EDUCATED REGARDING HIS/HER PLAN OF CARE?YES HAS THE PATIENT BEEN EDUCATED REGARDING PAIN, THE RISK FOR PAIN, THE IMPORTANCE OF EFFECTIVE PAIN MANAGEMENT, AND THE PAIN ASSESSMENT PROCESS?YES LATEX QUESTIONNAIRE LATEX ALLERGY : HAVE YOU EVER DEVELOPED ANY TYPE OF REACTION AFTER HANDLING LATEX PRODUCTS SUCH RUBBER GLOVES, CONDOMS, DIAPHRAGMS, BALLOONS, SOCKS, OR UNDERWEAR?NO LATEX ALLERGY : HAVE YOU EVER DEVELOPED ANY TYPE OF REACTION DURING OR AFTER DENTAL APPOINTMENT, VAGINAL/RECTAL EXAMINATION, SURGICAL PROCEDURE, OR ANY OTHER EXPOSURE?NO LATEX RISK : HAVE YOU EVER HAD ANY DIFFICULTY BREATHING OR HIVES AFTER EATING OR HANDLING ANY FRUITS, OR VEGETABLES; SUCH KIWI, BANANAS, STONE FRUITS, OR CHESTNUTSNO LATEX RISK : DO YOU HAVE A PREVIOUS PERSONAL HISTORY OF MORE THAN NINE SURGERIES, SPINA BIFIDA, OR REPEATED CATHERTIZATIONS? NO LATEX RISK : ARE YOU FREQUENTLY EXPOSED TO LATEX PRODUCTS IN YOUR OCCUPATION?NO DATE ASKED : 09/11/2018 CAFFEINE CAFFEINE USE?YES 1 CUP COFFEE DAILY ADVANCE DIRECTIVE ADVANCE DIRECTIVE DISCUSSED WITH PATIENT:YES 09/11/18 PT DOES NOT HAVE ANY ADVANCED DIRECTIVES AND SHE DECLINES INFORMATION ON HCP AT THIS TIME. AD ZOROASTRIANISM [id number] OTHER ALCOHOL SCREENING DID YOU HAVE A DRINK CONTAINING ALCOHOL IN THE PAST YEAR?NO POINTS0 INTERPRETATIONNEGATIVE REVIEWED 06/22/17 1131 BV. HOSPITALIZATION/MAJOR DIAGNOSTIC PROCEDURE SURGICALLY RELATED CONCUSION TEENAGER REVIEW OF SYSTEMS REVIEWED BY: PROVIDER: CRICKET TOVAR MD . CONSTITUTIONAL: ANY CHANGE IN YOUR MEDICAL CONDITION? NO . CHILLS NO . FEVER NO . INFECTION: DO YOU HAVE NEW INFECTIONS? NO . DO YOU HAVE HISTORY OF MRSA? NO . MUSCULOSKELETAL: ANY NEW PATTERNS OF PAIN OR NUMBNESS? NO . GASTROENTEROLOGY: ANY NEW CHANGE IN BOWEL CONTROL? NO . GENITOURINARY: ANY NEW CHANGE IN BLADDER CONTROL? NO . IS THERE A CHANCE YOU COULD BE ? NO . HEMATOLOGY/LYMPH: DO YOU TAKE ANY BLOOD THINNERS? (FOR EXAMPLE- COUMADIN, PLAVIX, AGGRENOX, PLATEL, PRADAXA, OR XARELTO) NO . WHEN WAS YOUR LAST DOSE? DATE: TIME: . NEUROLOGY: HAVE YOU FALLEN IN THE PAST 12 MONTHS? NO . ANY NEW EXTREMITY NUMBNESS OR WEAKNESS? NO . CARDIOLOGY: DO YOU HAVE A PACEMAKER OR DEFIBRILLATOR? NO . RESPIRATORY: HAVE YOU BEEN SICK IN THE PAST WEEK? NO . FEVER NO . FLU LIKE SYMPTOMS? NO . COUGH NO . INTEGUMENTARY: DO YOU HAVE ANY RASHES OR OPEN SORES? NO . ALLERGIC/IMMUNO: ARE YOU ALLERGIC TO IV DYE? NO . ANY NEW ALLERGIES? NO . PSYCHIATRIC: DO YOU HAVE THOUGHTS OF HURTING YOURSELF OR SOMEONE ELSE? NO . ARE YOU ABUSED, NEGLECTED, OR IN AN UNSAFE ENVIRONMENT? NO . ENDOCRINOLOGY: ARE YOU DIABETIC? NO . OTHER: DO YOU NEED ANY PRESCRIPTIONS? NO . IF YES, PLEASE LIST: ____ . ANY NEW PROBLEMS WITH YOUR MEDICATIONS? NO . WHEN DID YOU LAST EAT? ____ . WHEN DID YOU LAST DRINK? ____ . WHAT DID YOU LAST DRINK? ____ . NAME OF PERSON DRIVING YOU HOME? ____ . DO YOU HAVE ANY OTHER QUESTIONS OR CONCERNS NO . VITAL SIGNS WT 188.6 LBS, HT 63 IN, BMI 33.41 INDEX, BP 117/77 MM HG, HR 99 /MIN, RR 16 /MIN, TEMP 98.6 F, OXYGEN SAT % 98%, SAFE IN ENV? (Y/N) Y, NA INITIALS AW 1302, REVIEWED BY: AD. EXAMINATION GENERAL EXAMINATION: PATIENT IS ALERT O X 3 AND COOPERATIVE. PATIENT IS ABLE TO MOVE RIGHT UPPER EXTREMITY BETTER THAN BEFORE. MORE MOBILITY IS OBSERVED. 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 MARTE' PAIN MANAGEMENT CASE. THE PATIENT IS EXPERIENCING GOOD PAIN RELIEF FROM THE RIGHT STELLATE GANGLION BLOCK DONE ON 08/22/2018. THE PATIENT WILL FOLLOW UP IN 2 MONTHS AND WAS ADVISED TO CALL IF NEED TO BE SEEN SOONER. INSTRUCTIONS WERE GIVEN, QUESTIONS WERE ANSWERED, PATIENT REPORTS UNDERSTANDING AND AGREES WITH THE PLAN. I, ROSELIA ANDRADE, DOCUMENTED THE ABOVE INFORMATION ACTING A SCRIBE FOR DR. TOVAR. I HAVE REVIEWED THE ABOVE DOCUMENT, WRITTEN BY ROSELIA GILIBDiandra AND I VERIFY THAT IT IS ACCURATE. PROCEDURES PN WORKMANS' COMP OPINION IN YOUR OPINION, WAS THE INCIDENT THAT THE PATIENT DESCRIBED THE COMPETENT MEDICAL CAUSE OF THIS INJURY/ILLNESS? YES ARE THE PATIENT'S COMPLAINTS CONSISTENT WITH HIS/HER HISTORY OF THE INJURY/ILLNESS? YES IS THE PATIENT'S HISTORY OF THE INJURY/ILLNESS CONSISTENT WITH YOUR OBJECTIVE FINDING? YES WHAT IS THE PERCENTAGE OF TEMPORARY IMPAIRMENT? MODERATE TO MARKED = 66.7% IS THE PATIENT WORKING? NO DOCTOR ON SITE: CRICKET SUH MD PROCEDURE CODES G8427 CURRENT MEDS W/DOSAGES DOCUMENTED G8730 PAIN ASSESS POS TOOL F/U PLAN DOC FA211 ESTABILISHED PATIENT [facility] FACILITY CHARGE DISPOSITION & COMMUNICATION FOLLOW UP 2 MONTHS ELECTRONICALLY SIGNED BY CRICKET TOVAR MD, MD ON 09/23/2018 AT 05:00 PM EDT DISCLAIMER : THIS IS A VISIT SUMMARY EXTRACTED FROM THE [employer] CHART. IT IS NOT A COPY OF THE [employer] PROGRESS NOTE. MUKUL
== END ==
LOC: M PAIN 12:45
PROVIDERS: ATTEND Anesthesiology
DX: M79.2 Neuralgia and neuritis, unspecified (principal); G89.29 Other chronic pain; M79.7 Fibromyalgia; M19.90 Unspecified osteoarthritis, unspecified site; E78.00 Pure hypercholesterolemia, unspecified; Z88.2 Allergy status to sulfonamides; Z88.8 Allergy status to other drugs, medicaments and biological substances; Z79.899 Other long term (current) drug therapy

== ENCOUNTER → 2018-11-10 | Outpatient (CLI) | payer OTHER, MEDICARE ==
--- NOTE | 2018-11-22 01:41 | ECWPNPC ---
PATIENT NAME: LEVI MARTE : 1965 GENDER: FEMALE VISIT DATE: 11/10/2018 DISCHARGE DATE: 11/10/18 1436 VISIT LOCKED DATE TIME: PHYSICIAN: CRICKET TOVAR MD RESOURCE: CRICKET TVOAR MD REASON FOR APPOINTMENT 1. 2 MONTHS, W/C HISTORY OF PRESENT ILLNESS HISTORY OF PRESENT ILLNESS: PAIN THE PATIENT DESCRIBES THE PAIN... 53 YEAR OLD FEMALE PATIENT WITH A HISTORY OF CHRONIC RIGHT UPPER EXTREMITY PAIN. THE PATIENT DESCRIBES THE PAIN ACHING, SORE, TENDER, THROBBING, SHOOTING, NUMBING, DAILY, AND CONTINUOUS WITH A PAIN SCORE OF 8-10/10 DEPENDING ON PHYSICAL ACTIVITY. THE PATIENT WAS HURT IN A WORK RELATED INJURY ON 06/09/2009 WHILE WORKING FOR THE [employer] AND STATES IT WAS CAUSED BY REPETITIVE MOVEMENT FROM TYPING. THE PATIENT STATES SHE HAD CARPAL TUNNEL SURGERY FOLLOWING HER INJURY. THE PATIENT HAD A RIGHT STELLATE GANGLION BLOCK DONE ON 08/22/2018, WHICH SHE SAYS GAVE HER PAIN RELIEF FOR 2 MONTHS, BUT THE PAIN IS SLOWLY COMING BACK. THE PATIENT SAYS SHE FEELS SHE NEEDS ANOTHER STELLATE GANGLION BLOCK DUE TO THE PAIN RETURNING. THE PATIENT STATES SHE HAS DIFFICULTY DOING DAILY ACTIVITIES SUCH CLEANING, COOKING, GROCERY SHOPPING, AND USING HER RIGHT ARM DUE TO THE PAIN. PATIENT DENIES UNEXPLAINABLE WEIGHT LOSS, FEVER, CHILLS, NEW CHANGES ON HER URINARY OR BOWEL CONTROL. FALL RISK SCREENING: SCREENING :NO FALLS REPORTED IN THE LAST YEAR CURRENT MEDICATIONS TAKING DULOXETINE HCL 30 MG CAPSULE DELAYED RELEASE PARTICLES 1 CAPSULE ORALLY TWICE A DAY TAKING GABAPENTIN 400 MG TABLET 1 TABLET ORALLY BID TAKING AMITRIPTYLINE HCL 30 MG TABLET 1 TABLET AT BEDTIME ORALLY ONCE A DAY TAKING OXYCODONE-ACETAMINOPHEN 5-325 MG TABLET 1 TABLET NEEDED ORALLY EVERY 4 HOURS NEEDED TAKING LIDOCAINE & ADHESIVE SHEET 5 % KIT 1 PATCH EXTERNALLY DAILY TAKING OMEPRAZOLE 10 MG CAPSULE DELAYED RELEASE 1 CAPSULE ORALLY ONCE A DAY MEDICATION LIST REVIEWED AND RECONCILED WITH THE PATIENT PAST MEDICAL HISTORY KIDNEY STONES CTS, BILATERAL FIBROMYALGIA OSTEOARTHRITIS SCOLIOSIS A CHILD HIGH CHOLESTEROL FATTY LIVER DIVERTICULITIS CRPS RIGHT ARM PAIN LEFT WRIST/HAND ALLERGIES PSEUDOEPHEDRINE HCL: HIVES - ALLERGY SULFA (FOR ALLERGY USE ONLY): HIVES - ALLERGY SURGICAL HISTORY CHOLECYSTECTOMY 2008 CTR, RIGHT 2012 TUBAL LIGATION 2008 LITHOTRIPSY 2005 REMOVAL LIPOMA LEFT ABDOMEN 2014 FAMILY HISTORY FATHER: ALIVE 77 YRS, ARTHRITIS, CANCER GALL BLADDER, HYPERTENSION MOTHER: ALIVE 76 YRS, FIBROMYALGIA, ALZHEIMER'S SIBLINGS: ALIVE, 1 BROTHER TESTICULAR CANCER, 1 BROTHER METASTATIC COLON CANCER 3 SON(S) , 1 DAUGHTER(S) . YOUNGEST SON-PKU, ASTHMA, EXCEMA. SOCIAL HISTORY GENERAL: TOBACCO USE ARE YOU A:NONSMOKER OTHERS AT HOME: CHILD, OTHER RELATIVE. EDUCATION LEVEL OF EDUCATION:HIGH SCHOOL DIET: REGULAR. LANGUAGE LANGUAGES SPOKEN:LUX[place]BOURGISH DOMESTIC VIOLENCE DO YOU FEEL SAFE IN YOUR ENVIRONMENT?YES NEW PATIENT PAIN DIARY TODAY'S VISITNOTES RECREATIONAL DRUG USE DRUG USE?NO EXERCISE: NO REGULAR EXERCISE. LEARNING BARRIERS / SPECIAL NEEDS BARRIERS TO LEARNING?NO HEARING IMPAIRED?YES : SOME HEARING LOSS RIGHT EAR VISION IMPAIRED?YES :CORRECTIVE LENSES READING GLASSES COGNITIVELY IMPAIRED?NO READINESS TO LEARN?YES LEARNING PREFERENCES?YES :DEMONSTRATION/VERBAL INSTRUCTION LEARNING CAPABILITIES PRESENT?YES EMOTIONAL BARRIERS?NO SPECIAL DEVICES?NO TENNIS DIRECTOR NEEDED?NO PAIN CLINIC PFS, CLERGY, PUBLIC HEALTH REFERRALS PFS REFERRAL NEEDED?NO CLERGY REFERRAL NEEDED?NO PUBLIC HEALTH REFERRAL NEEDED?NO WAS THE PROVIDER NOTIFIED OF ANY PERTINENT INFO? N/A HAS THE PATIENT BEEN EDUCATED REGARDING HIS/HER PLAN OF CARE?YES HAS THE PATIENT BEEN EDUCATED REGARDING PAIN, THE RISK FOR PAIN, THE IMPORTANCE OF EFFECTIVE PAIN MANAGEMENT, AND THE PAIN ASSESSMENT PROCESS?YES LATEX QUESTIONNAIRE LATEX ALLERGY : HAVE YOU EVER DEVELOPED ANY TYPE OF REACTION AFTER HANDLING LATEX PRODUCTS SUCH RUBBER GLOVES, CONDOMS, DIAPHRAGMS, BALLOONS, SOCKS, OR UNDERWEAR?NO LATEX ALLERGY : HAVE YOU EVER DEVELOPED ANY TYPE OF REACTION DURING OR AFTER DENTAL APPOINTMENT, VAGINAL/RECTAL EXAMINATION, SURGICAL PROCEDURE, OR ANY OTHER EXPOSURE?NO LATEX RISK : HAVE YOU EVER HAD ANY DIFFICULTY BREATHING OR HIVES AFTER EATING OR HANDLING ANY FRUITS, OR VEGETABLES; SUCH KIWI, BANANAS, STONE FRUITS, OR CHESTNUTSNO LATEX RISK : DO YOU HAVE A PREVIOUS PERSONAL HISTORY OF MORE THAN NINE SURGERIES, SPINA BIFIDA, OR REPEATED CATHERIZATIONS? NO LATEX RISK : ARE YOU FREQUENTLY EXPOSED TO LATEX PRODUCTS IN YOUR OCCUPATION?NO DATE ASKED : 11/10/2018 CAFFEINE CAFFEINE USE?YES 1 CUP COFFEE DAILY ADVANCE DIRECTIVE ADVANCE DIRECTIVE DISCUSSED WITH PATIENT:YES 09/11/18 PT DOES NOT HAVE ANY ADVANCED DIRECTIVES AND SHE DECLINES INFORMATION ON HCP AT THIS TIME. AD PROTESTANT [id number] OTHER MARITAL STATUS: .. ALCOHOL SCREENING DID YOU HAVE A DRINK CONTAINING ALCOHOL IN THE PAST YEAR?NO POINTS0 INTERPRETATIONNEGATIVE OCCUPATION: DISABLED. REVIEWED 06/22/17 1131 BV. HOSPITALIZATION/MAJOR DIAGNOSTIC PROCEDURE SURGICALLY RELATED CONCUSION TEENAGER REVIEW OF SYSTEMS REVIEWED BY: PROVIDER: CRICKET TOVAR MD . CONSTITUTIONAL: ANY CHANGE IN YOUR MEDICAL CONDITION? NO . CHILLS NO . FEVER NO . INFECTION: DO YOU HAVE NEW INFECTIONS? NO . DO YOU HAVE HISTORY OF MRSA? NO . MUSCULOSKELETAL: ANY NEW PATTERNS OF PAIN OR NUMBNESS? NO . GASTROENTEROLOGY: ANY NEW CHANGE IN BOWEL CONTROL? NO . GENITOURINARY: ANY NEW CHANGE IN BLADDER CONTROL? NO . IS THERE A CHANCE YOU COULD BE ? NO . HEMATOLOGY/LYMPH: DO YOU TAKE ANY BLOOD THINNERS? (FOR EXAMPLE- COUMADIN, PLAVIX, AGGRENOX, PLATEL, PRADAXA, OR XARELTO) NO . WHEN WAS YOUR LAST DOSE? DATE: TIME: . NEUROLOGY: HAVE YOU FALLEN IN THE PAST 12 MONTHS? NO . ANY NEW EXTREMITY NUMBNESS OR WEAKNESS? NO . CARDIOLOGY: DO YOU HAVE A PACEMAKER OR DEFIBRILLATOR? NO . RESPIRATORY: HAVE YOU BEEN SICK IN THE PAST WEEK? NO . FEVER NO . FLU LIKE SYMPTOMS? NO . COUGH NO . INTEGUMENTARY: DO YOU HAVE ANY RASHES OR OPEN SORES? NO . ALLERGIC/IMMUNO: ARE YOU ALLERGIC TO IV DYE? NO . ANY NEW ALLERGIES? NO . PSYCHIATRIC: DO YOU HAVE THOUGHTS OF HURTING YOURSELF OR SOMEONE ELSE? NO . ARE YOU ABUSED, NEGLECTED, OR IN AN UNSAFE ENVIRONMENT? NO . ENDOCRINOLOGY: ARE YOU DIABETIC? NO . OTHER: DO YOU NEED ANY PRESCRIPTIONS? NO . IF YES, PLEASE LIST: ____ . ANY NEW PROBLEMS WITH YOUR MEDICATIONS? NO . WHEN DID YOU LAST EAT? ____ . WHEN DID YOU LAST DRINK? ____ . WHAT DID YOU LAST DRINK? ____ . NAME OF PERSON DRIVING YOU HOME? ____ . DO YOU HAVE ANY OTHER QUESTIONS OR CONCERNS NO . VITAL SIGNS WT 186.2 LBS, HT 63 IN, BMI 32.98 INDEX, BP 112/64 MM HG, HR 103 /MIN, RR 16 /MIN, TEMP 97.1 F, OXYGEN SAT % 97%, NA INITIALS AW 1318. EXAMINATION GENERAL EXAMINATION: PATIENT IS ALERT O X 3 AND COOPERATIVE. THE PATIENT CAN ABDUCT LEFT ARM WITHOUT DIFFICULTY. THE PATIENT CAN ABDUCT RIGHT ARM 5 DEGREES ABOVE SHOULDER LEVEL. MUSCLES OF FOREARM AND HAND GOLD ASSAYER ON RIGHT SIDE REDUCED COMPARED TO LEFT SIDE. 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 RIGHT ARM IS WEAKER IS WEAKER AT EXTENSION AND FLEXION. 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 MARTE' PAIN MANAGEMENT CASE. DUE TO THE FACT THAT THE PATIENT RECEIVED GOOD PAIN RELIEF FROM THE RIGHT STELLATE GANGLION BLOCK DONE ON 08/22/2018, I FEEL ANOTHER GANGLION BLOCK WITH IV SEDATION WOULD BE BENEFICIAL. THE PATIENT WOULD LIKE TO MOVE FORWARD WITH IV SEDATION DUE TO DISCOMFORT, PAIN, AND ANXIETY ASSOCIATED WITH THE PROCEDURE. WE DISCUSSED THE BENEFITS, RISKS AND ALTERNATIVES OF THE INJECTION AND THE PATIENT WOULD LIKE TO PROCEED. WE WILL REQUEST AUTHORIZATION FOR A STELLATE GANGLION BLOCK AND SCHEDULE AFTER APPROVAL RECEIVED. THE PATIENT WILL ALSO NEED TO BE SCHEDULED FOR A PRE-OP APPOINTMENT FOR IV SEDATION PRIOR TO PROCEDURE. THE PATIENT WILL FOLLOW UP IN SEVERAL WEEKS AFTER THE INJECTION. INSTRUCTIONS WERE GIVEN, QUESTIONS WERE ANSWERED, PATIENT REPORTS UNDERSTANDING AND AGREES WITH THE PLAN. I, BELIA WALLACE, DOCUMENTED THE ABOVE INFORMATION ACTING A SCRIBE FOR DR. TOVAR. I HAVE REVIEWED THE ABOVE DOCUMENT, WRITTEN BY BELIA LANG AND I VERIFY THAT IT IS ACCURATE.. PROCEDURES PN WORKMANS' COMP OPINION IN YOUR OPINION, WAS THE INCIDENT THAT THE PATIENT DESCRIBED THE COMPETENT MEDICAL CAUSE OF THIS INJURY/ILLNESS? YES ARE THE PATIENT'S COMPLAINTS CONSISTENT WITH HIS/HER HISTORY OF THE INJURY/ILLNESS? YES IS THE PATIENT'S HISTORY OF THE INJURY/ILLNESS CONSISTENT WITH YOUR OBJECTIVE FINDING? YES WHAT IS THE PERCENTAGE OF TEMPORARY IMPAIRMENT? MODERATE TO MARKED = 66.7% IS THE PATIENT WORKING? NO DOCTOR ON SITE: CRICKET SUH MD PROCEDURE CODES G8427 CURRENT MEDS W/DOSAGES DOCUMENTED G8730 PAIN ASSESS POS TOOL F/U PLAN DOC FA211 ESTABILISHED PATIENT [facility] FACILITY CHARGE DISPOSITION & COMMUNICATION FOLLOW UP REASON: STELLATE GANGLION BLOCK W/ IV SEDATION, 3 UNIT PROCEDURE, NEEDS AZ-OP EVAL F/U FIRST ELECTRONICALLY SIGNED BY CRICKET TOVAR MD, MD ON 11/21/2018 AT 12:32 PM EDT DISCLAIMER : THIS IS A VISIT SUMMARY EXTRACTED FROM THE [employer] CHART. IT IS NOT A COPY OF THE [employer] PROGRESS NOTE. MUKUL
== END ==
LOC: M PAIN 13:30
PROVIDERS: ATTEND Anesthesiology
DX: M79.2 Neuralgia and neuritis, unspecified (principal); M79.601 Pain in right arm; G89.29 Other chronic pain; M79.7 Fibromyalgia; M19.90 Unspecified osteoarthritis, unspecified site; E78.00 Pure hypercholesterolemia, unspecified; Z88.2 Allergy status to sulfonamides; Z88.8 Allergy status to other drugs, medicaments and biological substances; Z79.899 Other long term (current) drug therapy

== ENCOUNTER → 2018-12-29 | Outpatient (CLI) | payer OTHER, MEDICARE ==
--- NOTE | 2019-01-06 01:10 | ECWPNPC ---
PATIENT NAME: LEVI MARTE : 1965 GENDER: FEMALE VISIT DATE: 12/29/2018 DISCHARGE DATE: 12/29/18 1531 VISIT LOCKED DATE TIME: PHYSICIAN: CRICKET TOVAR MD RESOURCE: CRICKET TOVAR MD REASON FOR APPOINTMENT 1. PRE-SEDATE HISTORY OF PRESENT ILLNESS HISTORY OF PRESENT ILLNESS: PAIN THE PATIENT DESCRIBES THE PAIN... 53 YEAR OLD FEMALE PATIENT WITH A HISTORY OF CHRONIC RIGHT UPPER EXTREMITY PAIN. THE PATIENT DESCRIBES THE PAIN ACHING, SORE, TENDER, SHOOTING, THROBBING, DAILY, AND CONTINUOUS WITH A PAIN SCORE OF 7-10/10 DEPENDING ON PHYSICAL ACTIVITY. THE PATIENT WAS HURT IN A WORK RELATED INJURY ON 06/09/2009 WHILE WORKING FOR [employer] AND STATES IT IS FROM REPETITIVE MOVEMENT WHILE TYPING. THE PATIENT SAYS SHE HAD CARPAL TUNNEL SURGERY FOLLOWING HER INJURY. THE PATIENT RECEIVED A RIGHT STELLATE GANGLION BLOCK ON 08/22/2018, WHICH SHE SAYS PROVIDED HER WITH GOOD PAIN RELIEF AND INCREASED FUNCTIONALITY FOR SEVERAL MONTHS. THE PATIENT STATES HER PAIN HAS RETURNED AND IS AFFECTING HER ABILITY TO PERFORM HER DAILY ACTIVITIES SUCH USING HER RIGHT ARM, COOKING, AND CLEANING HER HOUSE. PATIENT DENIES UNEXPLAINABLE WEIGHT LOSS, FEVER, CHILLS, NEW CHANGES ON HER URINARY OR BOWEL CONTROL. FALL RISK SCREENING: SCREENING :NO FALLS REPORTED IN THE LAST YEAR CURRENT MEDICATIONS TAKING DULOXETINE HCL 30 MG CAPSULE DELAYED RELEASE PARTICLES 1 CAPSULE ORALLY TWICE A DAY TAKING GABAPENTIN 400 MG TABLET 1 TABLET ORALLY BID TAKING AMITRIPTYLINE HCL 30 MG TABLET 1 TABLET AT BEDTIME ORALLY ONCE A DAY TAKING OXYCODONE-ACETAMINOPHEN 5-325 MG TABLET 1 TABLET NEEDED ORALLY EVERY 4 HOURS NEEDED TAKING LIDOCAINE & ADHESIVE SHEET 5 % KIT 1 PATCH EXTERNALLY DAILY TAKING OMEPRAZOLE 10 MG CAPSULE DELAYED RELEASE 1 CAPSULE ORALLY ONCE A DAY MEDICATION LIST REVIEWED AND RECONCILED WITH THE PATIENT PAST MEDICAL HISTORY KIDNEY STONES CTS, BILATERAL FIBROMYALGIA OSTEOARTHRITIS SCOLIOSIS A CHILD HIGH CHOLESTEROL FATTY LIVER DIVERTICULITIS CRPS RIGHT ARM PAIN LEFT WRIST/HAND ALLERGIES PSEUDOEPHEDRINE HCL: HIVES - ALLERGY SULFA (FOR ALLERGY USE ONLY): HIVES - ALLERGY SURGICAL HISTORY CHOLECYSTECTOMY 2008 CTR, RIGHT 2012 TUBAL LIGATION 2007 LITHOTRIPSY 2004 REMOVAL LIPOMA LEFT ABDOMEN 2014 FAMILY HISTORY FATHER: ALIVE 77 YRS, ARTHRITIS, CANCER GALL BLADDER, HYPERTENSION MOTHER: ALIVE 76 YRS, FIBROMYALGIA, ALZHEIMER'S SIBLINGS: ALIVE, 1 BROTHER TESTICULAR CANCER, 1 BROTHER METASTATIC COLON CANCER 3 SON(S) , 1 DAUGHTER(S) . YOUNGEST SON-PKU, ASTHMA, EXCEMA. SOCIAL HISTORY GENERAL: TOBACCO USE ARE YOU A:NONSMOKER OTHERS AT HOME: CHILD, OTHER RELATIVE. EDUCATION LEVEL OF EDUCATION:HIGH SCHOOL DIET: REGULAR. LANGUAGE LANGUAGES SPOKEN:MALAGASY DOMESTIC VIOLENCE DO YOU FEEL SAFE IN YOUR ENVIRONMENT?YES NEW PATIENT PAIN DIARY TODAY'S VISITNOTES RECREATIONAL DRUG USE DRUG USE?NO EXERCISE: NO REGULAR EXERCISE. LEARNING BARRIERS / SPECIAL NEEDS BARRIERS TO LEARNING?NO HEARING IMPAIRED?YES VISION IMPAIRED?YES COGNITIVELY IMPAIRED?NO : SOME HEARING LOSS RIGHT EAR :CORRECTIVE LENSES READING GLASSES READINESS TO LEARN?YES LEARNING PREFERENCES?YES :DEMONSTRATION/VERBAL INSTRUCTION LEARNING CAPABILITIES PRESENT?YES EMOTIONAL BARRIERS?NO SPECIAL DEVICES?NO BILLBOARD POSTER NEEDED?NO PAIN CLINIC PFS, CLERGY, PUBLIC HEALTH REFERRALS PFS REFERRAL NEEDED?NO CLERGY REFERRAL NEEDED?NO PUBLIC HEALTH REFERRAL NEEDED?NO WAS THE PROVIDER NOTIFIED OF ANY PERTINENT INFO?YES N/A HAS THE PATIENT BEEN EDUCATED REGARDING HIS/HER PLAN OF CARE?YES HAS THE PATIENT BEEN EDUCATED REGARDING PAIN, THE RISK FOR PAIN, THE IMPORTANCE OF EFFECTIVE PAIN MANAGEMENT, AND THE PAIN ASSESSMENT PROCESS?YES LATEX QUESTIONNAIRE LATEX ALLERGY : HAVE YOU EVER DEVELOPED ANY TYPE OF REACTION AFTER HANDLING LATEX PRODUCTS SUCH RUBBER GLOVES, CONDOMS, DIAPHRAGMS, BALLOONS, SOCKS, OR UNDERWEAR?NO LATEX ALLERGY : HAVE YOU EVER DEVELOPED ANY TYPE OF REACTION DURING OR AFTER DENTAL APPOINTMENT, VAGINAL/RECTAL EXAMINATION, SURGICAL PROCEDURE, OR ANY OTHER EXPOSURE?NO LATEX RISK : HAVE YOU EVER HAD ANY DIFFICULTY BREATHING OR HIVES AFTER EATING OR HANDLING ANY FRUITS, OR VEGETABLES; SUCH KIWI, BANANAS, STONE FRUITS, OR CHESTNUTSNO LATEX RISK : DO YOU HAVE A PREVIOUS PERSONAL HISTORY OF MORE THAN NINE SURGERIES, SPINA BIFIDA, OR REPEATED CATHERIZATIONS? NO LATEX RISK : ARE YOU FREQUENTLY EXPOSED TO LATEX PRODUCTS IN YOUR OCCUPATION?NO DATE ASKED : 12/29/2018 CAFFEINE CAFFEINE USE?YES 1 CUP COFFEE DAILY ADVANCE DIRECTIVE ADVANCE DIRECTIVE DISCUSSED WITH PATIENT:YES PT DOES NOT HAVE ANY ADVANCED DIRECTIVES AND SHE DECLINES INFORMATION ON HCP AT THIS TIME. ISLAM [id number] OTHER MARITAL STATUS: .. ALCOHOL SCREENING DID YOU HAVE A DRINK CONTAINING ALCOHOL IN THE PAST YEAR?NO POINTS0 INTERPRETATIONNEGATIVE OCCUPATION: DISABLED. REVIEWED 06/22/17 1131 BV. HOSPITALIZATION/MAJOR DIAGNOSTIC PROCEDURE SURGICALLY RELATED CONCUSION TEENAGER REVIEW OF SYSTEMS REVIEWED BY: PROVIDER: CRICKET TOVAR MD . CONSTITUTIONAL: ANY CHANGE IN YOUR MEDICAL CONDITION? NO . CHILLS NO . FEVER NO . INFECTION: DO YOU HAVE NEW INFECTIONS? NO . DO YOU HAVE HISTORY OF MRSA? NO . MUSCULOSKELETAL: ANY NEW PATTERNS OF PAIN OR NUMBNESS? NO . GASTROENTEROLOGY: ANY NEW CHANGE IN BOWEL CONTROL? NO . GENITOURINARY: ANY NEW CHANGE IN BLADDER CONTROL? NO . IS THERE A CHANCE YOU COULD BE ? NO . HEMATOLOGY/LYMPH: DO YOU TAKE ANY BLOOD THINNERS? (FOR EXAMPLE- COUMADIN, PLAVIX, AGGRENOX, PLATEL, PRADAXA, OR XARELTO) NO . WHEN WAS YOUR LAST DOSE? DATE: TIME: . NEUROLOGY: HAVE YOU FALLEN IN THE PAST 12 MONTHS? NO . ANY NEW EXTREMITY NUMBNESS OR WEAKNESS? NO . CARDIOLOGY: DO YOU HAVE A PACEMAKER OR DEFIBRILLATOR? NO . RESPIRATORY: HAVE YOU BEEN SICK IN THE PAST WEEK? PT STATE, S THAT SHE WAS SICK WITH VOMITING, SWEATING, CHILLS ABOUT 10 DAYS AGO. SYMTOMS HAVE RESOLVED. . FEVER NO . FLU LIKE SYMPTOMS? NO . COUGH NO . INTEGUMENTARY: DO YOU HAVE ANY RASHES OR OPEN SORES? NO . ALLERGIC/IMMUNO: ARE YOU ALLERGIC TO IV DYE? NO . ANY NEW ALLERGIES? NO . PSYCHIATRIC: DO YOU HAVE THOUGHTS OF HURTING YOURSELF OR SOMEONE ELSE? NO . ARE YOU ABUSED, NEGLECTED, OR IN AN UNSAFE ENVIRONMENT? NO . ENDOCRINOLOGY: ARE YOU DIABETIC? NO . OTHER: DO YOU NEED ANY PRESCRIPTIONS? NO . IF YES, PLEASE LIST: ____ . ANY NEW PROBLEMS WITH YOUR MEDICATIONS? NO . WHEN DID YOU LAST EAT? ____ . WHEN DID YOU LAST DRINK? ____ . WHAT DID YOU LAST DRINK? ____ . NAME OF PERSON DRIVING YOU HOME? ____ . DO YOU HAVE ANY OTHER QUESTIONS OR CONCERNS NO . VITAL SIGNS WT 186 LBS, HT 63 IN, BMI 32.94 INDEX, BP 115/76 MM HG, HR 114 /MIN, RR 16 /MIN, TEMP 97.4 F, OXYGEN SAT % 97%, SAFE IN ENV? (Y/N) Y, NA INITIALS SC 14:17, REVIEWED BY: ZAYNAB. EXAMINATION GENERAL EXAMINATION: PATIENT IS ALERT O X 3 AND COOPERATIVE. LUNGS CLEAR, TO AUSCULTATION. HEART: NO MURMURS OR GALLOPS; FACIAL CRANIAL NERVES ARE GROSSLY NORMAL. GOOD SYMMETRY OF FACIAL MUSCLE MOVEMENT. NORMAL VISUAL PIÑA. RIGHT ARM IS WEAKER AT EXTENSION AND FLEXION. RIGHT HAND ALUMINUM SIDING MECHANIC IS REDUCED COMPARED WITH THE LEFT SIDE. 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 MARTE' PAIN MANAGEMENT CASE. DUE TO THE RIGHT UPPER EXTREMITY NEURALGIA AND THE GOOD RESULTS THE PATIENT HAD FROM HER PREVIOUS BLOCK, I WOULD LIKE TO PROCEED WITH ANOTHER RIGHT STELLATE GANGLION BLOCK. THE PATIENT WOULD LIKE TO MOVE FORWARD WITH IV SEDATION DUE TO DISCOMFORT, PAIN, AND ANXIETY ASSOCIATED WITH THE PROCEDURE. WE DISCUSSED THE BENEFITS, RISKS, AND ALTERNATIVES OF THE INJECTION AND THE PATIENT WOULD LIKE TO PROCEED. THE PATIENT WILL FOLLOW UP WITH A NURSE PRACTITIONER AFTER THE INJECTION. I, ROSELIA ANDRADE, DOCUMENTED THE ABOVE INFORMATION ACTING A SCRIBE FOR DR. TOVAR. I HAVE REVIEWED THE ABOVE DOCUMENT, WRITTEN BY ROSELIA LANG AND I VERIFY THAT IT IS ACCURATE.. PROCEDURE CODES FA211 ESTABILISHED PATIENT [facility] FACILITY CHARGE G8427 CURRENT MEDS W/DOSAGES DOCUMENTED G8730 PAIN ASSESS POS TOOL F/U PLAN DOC DISPOSITION & COMMUNICATION FOLLOW UP 3 WEEKS ELECTRONICALLY SIGNED BY CRICKET TOVAR MD, MD ON 01/05/2019 AT 05:54 PM EDT DISCLAIMER : THIS IS A VISIT SUMMARY EXTRACTED FROM THE [employer] CHART. IT IS NOT A COPY OF THE [employer] PROGRESS NOTE. MTDD
== END ==
LOC: M PAIN 14:30
PROVIDERS: ATTEND Anesthesiology
DX: M79.2 Neuralgia and neuritis, unspecified (principal); G89.29 Other chronic pain; M79.7 Fibromyalgia; M19.90 Unspecified osteoarthritis, unspecified site; Z88.2 Allergy status to sulfonamides; Z88.8 Allergy status to other drugs, medicaments and biological substances; Z79.899 Other long term (current) drug therapy

== ENCOUNTER → 2019-01-24 | Outpatient (CLI) | payer MEDICARE ==
[2019-01-24 11:53] LABS: BASO # 0.1 10^3/uL (0.0-0.2); BASO % 1.1 % (0.0-1.0); EOS # 0.2 10^3/uL (0.0-0.5); HEMOGLOBIN 15.9 g/dl (12.0-15.5); LYMPH % 34.2 % (24.0-44.0); MEAN CORPUSCULAR HEMOGLOBIN 31.4 pg (27.0-33.0); MEAN CORPUSCULAR HGB CONC 33.1 g/dl (32.0-36.5); MEAN CORPUSCULAR VOLUME 94.7 fl (80.0-96.0); MONO # 0.5 10^3/uL (0.0-0.8); MONO % 8.1 % (0.0-5.0); NEUTROPHILS % 52.2 % (36.0-66.0); PLATELET COUNT, AUTOMATED 286 10^3/uL (150-450); RED BLOOD COUNT 5.07 10^6/uL (4.00-5.40); WHITE BLOOD COUNT 5.7 10^3/uL (4.0-10.0)
[2019-01-24 12:28] LABS: FERRITIN 174 NG/ML (8-252); IRON (FE) 83 UG/DL (50-170); PERCENT SATURATION 29.7 % (13.2-45.0); TOTAL IRON BINDING CAPACITY 279 UG/DL (250-450)
[2019-01-24 12:32] LABS: VITAMIN B12 LEVEL 317 PG/ML
[2019-01-24 12:33] LABS: FOLATE 10.3 NG/ML
[2019-01-24 13:58] LABS: H PYLORI QUALITATIVE IgG NEGATIVE (NEGATIVE)
[2019-01-26 08:06] LABS: IGASUB2 261.8 mg/dL (73.2-301.2); IGASUB3 31.8 mg/dL (13.4-97.9); IgA SERUM (part of Subclasses) 342 mg/dL (87-352); TISSUE TRANSGLUTAMINASE IgA <2 U/mL (0-3)
== END ==
LOC: M LAB 11:10
PROVIDERS: ATTEND Internal Medicine Gastroenterology
DX: R10.11 Right upper quadrant pain (principal)

== ENCOUNTER → 2019-02-04 | Outpatient (REF) | payer MEDICARE | LOC: M LAB REF 10:55 | PROVIDERS: ATTEND Internal Medicine Gastroenterology | DX: R10.11 Right upper quadrant pain (principal) ==

== ENCOUNTER → 2019-02-08 | Outpatient (CLI) | payer OTHER, MEDICARE ==
[~2019-02-08] MED LIST changes: +BUPIVACAINE HCL 0.25% 30 ML VIAL As Ordered ONE; +ISOVUE-M 300 61% 15ML VIAL (Q9967) As Ordered ONE; +LIDOCAINE 1% SDV INJ 30 ML VIAL As Ordered ONE; +MIDAZOLAM INJ 2 MG/2 ML VIAL (J2250) As Ordered ONE; +TRIAMCINOLONE ACETONIDE SUSP 40 MG/ML VIAL (J3301) As Ordered ONE; +fentaNYL 100 MCG/2 ML INJECTION (J3010) As Ordered ONE
--- NOTE | 2019-02-09 08:59 | REP ---
CERVICAL SPINE: Four views. HISTORY: Right stellate ganglion block for pain. 9 seconds of fluoroscopy time is reported. FINDINGS: A sequence of four last image hold fluoroscopically obtained spot radiographs of the neck soft tissues document needle position and contrast injection associated with injection procedure. Electronically Signed by Romeo Villegas MD 02/09/2019 10:05 A
--- NOTE | 2019-02-21 02:45 | ECWPNPC ---
PATIENT NAME: LEVI MARTE : 1965 GENDER: FEMALE VISIT DATE: 02/08/2019 DISCHARGE DATE: 02/08/19 1506 VISIT LOCKED DATE TIME: PHYSICIAN: CRICKET TOVAR MD RESOURCE: CRICKET TOVAR MD REASON FOR APPOINTMENT 1. RIGHT STELLATE GANGLION BLOCK W/C WITH IV SEDATION HISTORY OF PRESENT ILLNESS HISTORY OF PRESENT ILLNESS: PAIN THE PATIENT DESCRIBES THE PAIN... FALL RISK SCREENING: SCREENING :NO FALLS REPORTED IN THE LAST YEAR CURRENT MEDICATIONS TAKING DULOXETINE HCL 30 MG CAPSULE DELAYED RELEASE PARTICLES 1 CAPSULE ORALLY TWICE A DAY, NOTES: 02-08-19799 TAKING GABAPENTIN 400 MG TABLET 1 TABLET ORALLY BID, NOTES: 02-07-191999 TAKING AMITRIPTYLINE HCL 30 MG TABLET 1 TABLET AT BEDTIME ORALLY ONCE A DAY, NOTES: 02-07-191999 TAKING OXYCODONE-ACETAMINOPHEN 5-325 MG TABLET 1 TABLET NEEDED ORALLY EVERY 4 HOURS NEEDED, NOTES: 02-08-19799 TAKING LIDOCAINE & ADHESIVE SHEET 5 % KIT 1 PATCH EXTERNALLY DAILY NEEDED ON 12 HOURS OFF 12 HOURS, NOTES: 3 NIGHTS AGO TAKING PANTOPRAZOLE SODIUM 20 MG TABLET DELAYED RELEASE 1 TABLET ORALLY ONCE A DAY, NOTES: 02-07-191999 TAKING DICYCLOMINE HCL 10 MG CAPSULE 2 CAPSULES ORALLY THREE TIMES A DAY, NOTES: 02-08-19799 NOT-TAKING OMEPRAZOLE 10 MG CAPSULE DELAYED RELEASE 1 CAPSULE ORALLY ONCE A DAY MEDICATION LIST REVIEWED AND RECONCILED WITH THE PATIENT PAST MEDICAL HISTORY KIDNEY STONES CTS, BILATERAL FIBROMYALGIA OSTEOARTHRITIS SCOLIOSIS A CHILD HIGH CHOLESTEROL FATTY LIVER DIVERTICULITIS CRPS RIGHT ARM PAIN LEFT WRIST/HAND POSSIBLE IBS ALLERGIES PSEUDOEPHEDRINE HCL: HIVES - ALLERGY SULFA (FOR ALLERGY USE ONLY): HIVES - ALLERGY SURGICAL HISTORY CHOLECYSTECTOMY 2008 CTR, RIGHT 2012 TUBAL LIGATION 2008 LITHOTRIPSY 2004 REMOVAL LIPOMA LEFT ABDOMEN 2014 FAMILY HISTORY FATHER: ALIVE 77 YRS, ARTHRITIS, CANCER GALL BLADDER, HYPERTENSION MOTHER: ALIVE 76 YRS, FIBROMYALGIA, ALZHEIMER'S SIBLINGS: ALIVE, 1 BROTHER TESTICULAR CANCER, 1 BROTHER METASTATIC COLON CANCER (), 1 BROTHER HEALTHY 3 BROTHER(S) . 3 SON(S) , 1 DAUGHTER(S) . YOUNGEST SON-PKU, ASTHMA, EXCEMA. SOCIAL HISTORY GENERAL: TOBACCO USE ARE YOU A:NONSMOKER OTHERS AT HOME: CHILD, OTHER RELATIVE. EDUCATION LEVEL OF EDUCATION:HIGH SCHOOL DIET: REGULAR. LANGUAGE LANGUAGES SPOKEN:TURKMEN DOMESTIC VIOLENCE DO YOU FEEL SAFE IN YOUR ENVIRONMENT?YES NEW PATIENT PAIN DIARY TODAY'S VISITNOTES RECREATIONAL DRUG USE DRUG USE?NO EXERCISE: NO REGULAR EXERCISE. LEARNING BARRIERS / SPECIAL NEEDS BARRIERS TO LEARNING?NO HEARING IMPAIRED?YES VISION IMPAIRED?YES COGNITIVELY IMPAIRED?NO : SOME HEARING LOSS RIGHT EAR :CORRECTIVE LENSES READING GLASSES READINESS TO LEARN?YES LEARNING PREFERENCES?YES :DEMONSTRATION/VERBAL INSTRUCTION LEARNING CAPABILITIES PRESENT?YES EMOTIONAL BARRIERS?NO SPECIAL DEVICES?NO PHOTOGRAPH INSPECTOR NEEDED?NO PAIN CLINIC PFS, CLERGY, PUBLIC HEALTH REFERRALS PFS REFERRAL NEEDED?NO CLERGY REFERRAL NEEDED?NO PUBLIC HEALTH REFERRAL NEEDED?NO WAS THE PROVIDER NOTIFIED OF ANY PERTINENT INFO? N/A HAS THE PATIENT BEEN EDUCATED REGARDING HIS/HER PLAN OF CARE?YES HAS THE PATIENT BEEN EDUCATED REGARDING PAIN, THE RISK FOR PAIN, THE IMPORTANCE OF EFFECTIVE PAIN MANAGEMENT, AND THE PAIN ASSESSMENT PROCESS?YES LATEX QUESTIONNAIRE LATEX ALLERGY : HAVE YOU EVER DEVELOPED ANY TYPE OF REACTION AFTER HANDLING LATEX PRODUCTS SUCH RUBBER GLOVES, CONDOMS, DIAPHRAGMS, BALLOONS, SOCKS, OR UNDERWEAR?NO LATEX ALLERGY : HAVE YOU EVER DEVELOPED ANY TYPE OF REACTION DURING OR AFTER DENTAL APPOINTMENT, VAGINAL/RECTAL EXAMINATION, SURGICAL PROCEDURE, OR ANY OTHER EXPOSURE?NO LATEX RISK : HAVE YOU EVER HAD ANY DIFFICULTY BREATHING OR HIVES AFTER EATING OR HANDLING ANY FRUITS, OR VEGETABLES; SUCH KIWI, BANANAS, STONE FRUITS, OR CHESTNUTSNO LATEX RISK : DO YOU HAVE A PREVIOUS PERSONAL HISTORY OF MORE THAN NINE SURGERIES, SPINA BIFIDA, OR REPEATED CATHERIZATIONS? NO LATEX RISK : ARE YOU FREQUENTLY EXPOSED TO LATEX PRODUCTS IN YOUR OCCUPATION?NO DATE ASKED : 02/08/2019 CAFFEINE CAFFEINE USE?YES 1 CUP COFFEE DAILY ADVANCE DIRECTIVE ADVANCE DIRECTIVE DISCUSSED WITH PATIENT:YES 02/08/19 PT DOES NOT HAVE ANY ADVANCED DIRECTIVES AND SHE DECLINES INFORMATION ON HCP AT THIS TIME. AD QUAKER [id number] OTHER MARITAL STATUS: .. ALCOHOL SCREENING DID YOU HAVE A DRINK CONTAINING ALCOHOL IN THE PAST YEAR?NO POINTS0 INTERPRETATIONNEGATIVE OCCUPATION: DISABLED. REVIEWED 06/22/17 1131 BV. 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 CONSTITUTIONAL: ANY CHANGE IN YOUR MEDICAL CONDITION? NO . CHILLS NO . FEVER NO . INFECTION: DO YOU HAVE NEW INFECTIONS? NO . DO YOU HAVE HISTORY OF MRSA? NO . MUSCULOSKELETAL: ANY NEW PATTERNS OF PAIN OR NUMBNESS? YES - HEADACHE, NECK PAIN, AND RIGHT NECK KNOT FOR APPROXIMATELY PAST 6 WEEKS AFTER VERY LONG CAR RIDE. HAS BEEN USING LIDOCAINE PATCHES. . GASTROENTEROLOGY: ANY NEW CHANGE IN BOWEL CONTROL? NO . GENITOURINARY: ANY NEW CHANGE IN BLADDER CONTROL? NO . IS THERE A CHANCE YOU COULD BE ? NO . HEMATOLOGY/LYMPH: DO YOU TAKE ANY BLOOD THINNERS? (FOR EXAMPLE- COUMADIN, PLAVIX, AGGRENOX, PLATEL, PRADAXA, OR XARELTO) NO . WHEN WAS YOUR LAST DOSE? DATE: TIME: . NEUROLOGY: HAVE YOU FALLEN IN THE PAST 12 MONTHS? NO . ANY NEW EXTREMITY NUMBNESS OR WEAKNESS? NO . CARDIOLOGY: DO YOU HAVE A PACEMAKER OR DEFIBRILLATOR? NO . RESPIRATORY: HAVE YOU BEEN SICK IN THE PAST WEEK? NO . FEVER NO . FLU LIKE SYMPTOMS? NO . COUGH NO . INTEGUMENTARY: DO YOU HAVE ANY RASHES OR OPEN SORES? NO . ALLERGIC/IMMUNO: ARE YOU ALLERGIC TO IV DYE? NO . ANY NEW ALLERGIES? NO . PSYCHIATRIC: DO YOU HAVE THOUGHTS OF HURTING YOURSELF OR SOMEONE ELSE? NO . ARE YOU ABUSED, NEGLECTED, OR IN AN UNSAFE ENVIRONMENT? NO . ENDOCRINOLOGY: ARE YOU DIABETIC? NO . OTHER: DO YOU NEED ANY PRESCRIPTIONS? NO . IF YES, PLEASE LIST: ____ . ANY NEW PROBLEMS WITH YOUR MEDICATIONS? NO . WHEN DID YOU LAST EAT? 02/07 2300 . WHEN DID YOU LAST DRINK? 02/08 0700 . WHAT DID YOU LAST DRINK? BLACK COFFEE . NAME OF PERSON DRIVING YOU HOME? NATALIA BLANCHARD . DO YOU HAVE ANY OTHER QUESTIONS OR CONCERNS NO . VITAL SIGNS WT 187.0 LBS, HT 63 IN, BMI 33.12 INDEX, BP 123/74 MM HG, HR 91 /MIN, RR 16 /MIN, TEMP 97.0 F, OXYGEN SAT % 97%, NA INITIALS AW 1113, REVIEWED BY: MATEO. ASSESSMENTS NEURALGIA OF RIGHT UPPER EXTREMITY - M79.2 (PRIMARY) COMPLEX REGIONAL PAIN SYNDROME I OF RIGHT UPPER LIMB - G90.511 TREATMENT NEURALGIA OF RIGHT UPPER EXTREMITY [facility] FLUORO GUIDANCE (PAIN)[id number] PROCEDURES PN WORKMANS' COMP OPINION IN YOUR OPINION, WAS THE INCIDENT THAT THE PATIENT DESCRIBED THE COMPETENT MEDICAL CAUSE OF THIS INJURY/ILLNESS? YES ARE THE PATIENT'S COMPLAINTS CONSISTENT WITH HIS/HER HISTORY OF THE INJURY/ILLNESS? YES IS THE PATIENT'S HISTORY OF THE INJURY/ILLNESS CONSISTENT WITH YOUR OBJECTIVE FINDING? YES WHAT IS THE PERCENTAGE OF TEMPORARY IMPAIRMENT? MODERATE TO MARKED = 66.7% IS THE PATIENT WORKING? NO DOCTOR ON SITE: CRICKET SUH MD PREPROCEDURE DIAGNOSES:1. RIGHT ARM NEURALGIA.2. RIGHT ARM COMPLEX REGIONAL PAIN SYNDROMEPOSTPROCEDURE DIAGNOSES: SAMEPROCEDURE: RIGHT STELLATE GANGLION BLOCK UNDER FLUOROSCOPIC GUIDANCE WITH IV SEDATION.SURGEON: CRICKET SUH MDASSISTANT: NONE.ANESTHESIA: LOCAL WITH INTRAVENOUS (IV) SEDATION.PREOPERATIVE NOTE: THE PATIENT IS WITH HISTORY OF RIGHT ARM PAIN. I WENT THROUGH THE RISKS, ALTERNATIVES, AND BENEFITS ASSOCIATED WITH THIS PROCEDURE AND THE PATIENT EXPRESSED THAT SHE WILL LIKE TO PROCEED. THE PATIENT DENIES UNEXPLAINABLE WEIGHT LOSS, FEVER, CHILLS, OR CHANGES IN HER URINARY OR BOWEL CONTROL.DESCRIPTION OF PROCEDURE: AFTER CONSENT WAS TAKEN, THE PATIENT WAS BROUGHT TO THE PROCEDURE ROOM AND PLACED IN THE SUPINE POSITION. THE RIGHT NECK AREA WAS CLEANED WITH CHLORAPREP SOLUTION AND DRAPED ASEPTICALLY. THE PROCEDURE WAS DONE UNDER STERILE CONDITIONS. UNDER FLUOROSCOPIC GUIDANCE, TARGET POINT WAS SELECTED AT THE LEVEL APPROXIMATELY OF T7. I ADVANCED A HAVEL 21G ULTRASOUND NEEDLE WITH THE HELP OF AN ULTRASOUND DEVICE. I PUT THE NEEDLE BEHIND THE CAROTID ARTERY AND ANTERIOR TO THE LONGUS COLLI MUSCLE. I USED THE ULTRASOUND TO CHECK THE VASCULAR STRUCTURES AND AVOID NERVES. WHEN APPROPRIATE POSITION OF THE NEEDLE WAS ACHIEVED, ISOVUE M DYE 30%, 1/4 ML, WAS INJECTED SHOWING SPREAD OF THE DYE. THEN A SOLUTION OF 10 ML OF BUPIVACAINE 0.25% AND LIDOCAINE 1%, 50/50 WAS INJECTED WITH KENALOG 40 MG. THERE WAS NO EVIDENCE OF BLOOD, PARESTHESIA, OR CEREBROSPINAL FLUID. THE PATIENT WAS SENT TO THE RECOVERY ROOM. THE PATIENT WAS MOVING EXTREMITIES AND DOING WELL. THERE WERE NO COMPLICATIONS DURING THE PROCEDURE, WHICH WAS DONE WITH VERSED 2 MG INTRAVENOUS, FENTANYL 50 MCG INTRAVENOUS IN DIVIDED DOSES. THE AOZD-PQ-NIHR TIME WAS 36 MINUTES. THERE WERE NO COMPLICATIONS. FLUOROSCOPY TIME WAS 9 SECONDS.POST PROCEDURE NOTE: AFTER THE PROCEDURE, THE PATIENT WAS HAVING EVIDENCE OF PTOSIS, EVIDENCE OF AN ADEQUATE BLOCK. I DISCUSSED ALTERNATIVES. WE WILL SEE THE PATIENT IN A FOLLOWUP. WE ARE LOOKING FOR LONG LASTING PAIN RELIEF WITH THIS INTERVENTION. THERE WERE NO COMPLICATIONS. I, ROSELIA ANDRADE, DOCUMENTED THE ABOVE INFORMATION ACTING A SCRIBE FOR DR. TOVAR. I HAVE REVIEWED THE ABOVE DOCUMENT, WRITTEN BY ROSELIA ANDRADE SCRIBE AND I VERIFY THAT IT IS ACCURATE. PROCEDURE CODES 13512 N BLOCK STELLATE GANGLION, MODIFIERS: RT 6045F RADXPS IN END [id number] PXD 78620 NEEDLE LOCALIZATION BY XRAY, MODIFIERS: [id number] MOD SED SAME PHYS/QHP 5/>YRS 74552 MOD SED SAME PHYS/QHP EA DISPOSITION & COMMUNICATION FOLLOW UP 3 WEEKS ELECTRONICALLY SIGNED BY CRICKET TOVAR MD, MD ON 02/20/2019 AT 01:36 PM EST DISCLAIMER : THIS IS A VISIT SUMMARY EXTRACTED FROM THE [facility] CHART. IT IS NOT A COPY OF THE [employer] PROGRESS NOTE. MTDD
== END ==
LOC: M PAIN 11:00
PROVIDERS: ATTEND Anesthesiology
DX: M79.2 Neuralgia and neuritis, unspecified (principal); G90.511 Complex regional pain syndrome I of right upper limb
CPT/HCPCS: 64510; 99152; 99153; J2250; J3010; J3301; Q9967

== ENCOUNTER → 2019-02-23 | Outpatient (CLI) | payer OTHER, MEDICARE ==
[~2019-02-23] MED LIST changes: -BUPIVACAINE HCL 0.25% 30 ML VIAL As Ordered ONE; -ISOVUE-M 300 61% 15ML VIAL (Q9967) As Ordered ONE; -LIDOCAINE 1% SDV INJ 30 ML VIAL As Ordered ONE; -MIDAZOLAM INJ 2 MG/2 ML VIAL (J2250) As Ordered ONE; -TRIAMCINOLONE ACETONIDE SUSP 40 MG/ML VIAL (J3301) As Ordered ONE; -fentaNYL 100 MCG/2 ML INJECTION (J3010) As Ordered ONE
== END ==
LOC: M PAIN 09:30
PROVIDERS: ATTEND Nurse Practitioner Family
DX: M79.601 Pain in right arm (principal); M25.531 Pain in right wrist

== ENCOUNTER → 2019-04-12 | Outpatient (CLI) | payer OTHER, MEDICARE ==
--- NOTE | 2019-04-18 23:28 | ECWPNPC ---
PATIENT NAME: LEVI MARTE : 1965 GENDER: FEMALE VISIT DATE: 04/12/2019 DISCHARGE DATE: 04/12/19 1003 VISIT LOCKED DATE TIME: PHYSICIAN: AIDA THOMPSON RESOURCE: AIDA THOMPSON REASON FOR APPOINTMENT 1. W/C REQUEST STELLATE BLOCK HISTORY OF PRESENT ILLNESS HISTORY OF PRESENT ILLNESS: .RATING RIGHT ARM PAIN 10/10.PAIN IS AGGREVATED BY USE OF RIGHT ARM.SHE IS RIGHT HANDED.REPORTS DROPPING THINGS FREQUENTLY.THIS IS A WORK RELATED INJURY ON 06-09-2009.REPORTING LEFT WRIST PAIN HAS GOTTEN WORSE LATELY. PAIN THE PATIENT DESCRIBES THE PAIN... FALL RISK SCREENING: SCREENING :NO FALLS REPORTED IN THE LAST YEAR CURRENT MEDICATIONS TAKING DULOXETINE HCL 30 MG CAPSULE DELAYED RELEASE PARTICLES 1 CAPSULE ORALLY TWICE A DAY TAKING GABAPENTIN 400 MG TABLET 1 TABLET ORALLY BID TAKING AMITRIPTYLINE HCL 30 MG TABLET 1 TABLET AT BEDTIME ORALLY ONCE A DAY TAKING OXYCODONE-ACETAMINOPHEN 5-325 MG TABLET 1 TABLET NEEDED ORALLY EVERY 4 HOURS NEEDED TAKING LIDOCAINE & ADHESIVE SHEET 5 % KIT 1 PATCH EXTERNALLY DAILY NEEDED ON 12 HOURS OFF 12 HOURS TAKING PANTOPRAZOLE SODIUM 20 MG TABLET DELAYED RELEASE 1 TABLET ORALLY ONCE A DAY TAKING DICYCLOMINE HCL 10 MG CAPSULE 2 CAPSULES ORALLY THREE TIMES A DAY TAKING NEXIUM 20 MG CAPSULE DELAYED RELEASE 1 CAPSULE ORALLY ONCE A DAY TAKING CREON 01955 UNIT CAPSULE DELAYED RELEASE PARTICLES DIRECTED ORALLY WITH MEALS NOT-TAKING OMEPRAZOLE 10 MG CAPSULE DELAYED RELEASE 1 CAPSULE ORALLY ONCE A DAY MEDICATION LIST REVIEWED AND RECONCILED WITH THE PATIENT PAST MEDICAL HISTORY KIDNEY STONES CTS, BILATERAL FIBROMYALGIA OSTEOARTHRITIS SCOLIOSIS A CHILD HIGH CHOLESTEROL FATTY LIVER DIVERTICULITIS CRPS RIGHT ARM PAIN LEFT WRIST/HAND POSSIBLE IBS EPI (EXOCRINE PANCREATIC INSUFFICIENCY) ALLERGIES PSEUDOEPHEDRINE HCL: HIVES - ALLERGY SULFA (FOR ALLERGY USE ONLY): HIVES - ALLERGY SURGICAL HISTORY CHOLECYSTECTOMY 2008 CTR, RIGHT 2012 TUBAL LIGATION 2008 LITHOTRIPSY 2004 REMOVAL LIPOMA LEFT ABDOMEN 2014 FAMILY HISTORY FATHER: ALIVE 78 YRS, ARTHRITIS, CANCER GALL BLADDER, HYPERTENSION MOTHER: ALIVE 77 YRS, FIBROMYALGIA, ALZHEIMER'S SIBLINGS: ALIVE, 1 BROTHER TESTICULAR CANCER, 1 BROTHER METASTATIC COLON CANCER (), 1 BROTHER HEALTHY 3 BROTHER(S) . 3 SON(S) , 1 DAUGHTER(S) . YOUNGEST SON-PKU, ASTHMA, EXCEMA. SOCIAL HISTORY GENERAL: TOBACCO USE ARE YOU A:NONSMOKER OTHERS AT HOME: CHILD, OTHER RELATIVE. EDUCATION LEVEL OF EDUCATION:HIGH SCHOOL DIET: REGULAR. LANGUAGE LANGUAGES SPOKEN:KHMER DOMESTIC VIOLENCE DO YOU FEEL SAFE IN YOUR ENVIRONMENT?YES NEW PATIENT PAIN DIARY TODAY'S VISITNOTES RECREATIONAL DRUG USE DRUG USE?NO EXERCISE: NO REGULAR EXERCISE. LEARNING BARRIERS / SPECIAL NEEDS BARRIERS TO LEARNING?NO HEARING IMPAIRED?YES VISION IMPAIRED?YES COGNITIVELY IMPAIRED?NO : SOME HEARING LOSS RIGHT EAR :CORRECTIVE LENSES READING GLASSES READINESS TO LEARN?YES LEARNING PREFERENCES?YES :DEMONSTRATION/VERBAL INSTRUCTION LEARNING CAPABILITIES PRESENT?YES EMOTIONAL BARRIERS?NO SPECIAL DEVICES?NO LABORER EGG PRODUCING FARM NEEDED?NO PAIN CLINIC PFS, CLERGY, PUBLIC HEALTH REFERRALS PFS REFERRAL NEEDED?NO CLERGY REFERRAL NEEDED?NO PUBLIC HEALTH REFERRAL NEEDED?NO WAS THE PROVIDER NOTIFIED OF ANY PERTINENT INFO? N/A HAS THE PATIENT BEEN EDUCATED REGARDING HIS/HER PLAN OF CARE?YES HAS THE PATIENT BEEN EDUCATED REGARDING PAIN, THE RISK FOR PAIN, THE IMPORTANCE OF EFFECTIVE PAIN MANAGEMENT, AND THE PAIN ASSESSMENT PROCESS?YES LATEX QUESTIONNAIRE LATEX ALLERGY : HAVE YOU EVER DEVELOPED ANY TYPE OF REACTION AFTER HANDLING LATEX PRODUCTS SUCH RUBBER GLOVES, CONDOMS, DIAPHRAGMS, BALLOONS, SOCKS, OR UNDERWEAR?NO LATEX ALLERGY : HAVE YOU EVER DEVELOPED ANY TYPE OF REACTION DURING OR AFTER DENTAL APPOINTMENT, VAGINAL/RECTAL EXAMINATION, SURGICAL PROCEDURE, OR ANY OTHER EXPOSURE?NO LATEX RISK : HAVE YOU EVER HAD ANY DIFFICULTY BREATHING OR HIVES AFTER EATING OR HANDLING ANY FRUITS, OR VEGETABLES; SUCH KIWI, BANANAS, STONE FRUITS, OR CHESTNUTSNO LATEX RISK : DO YOU HAVE A PREVIOUS PERSONAL HISTORY OF MORE THAN NINE SURGERIES, SPINA BIFIDA, OR REPEATED CATHERIZATIONS? NO LATEX RISK : ARE YOU FREQUENTLY EXPOSED TO LATEX PRODUCTS IN YOUR OCCUPATION?NO DATE ASKED : 02/08/2019 CAFFEINE CAFFEINE USE?YES 1 CUP COFFEE DAILY ADVANCE DIRECTIVE ADVANCE DIRECTIVE DISCUSSED WITH PATIENT:YES 04/12/2019 PT DOES NOT HAVE ANY ADVANCED DIRECTIVES AND SHE DECLINES INFORMATION ON HCP AT THIS TIME. JS NONDENOMINATIONAL [id number] OTHER MARITAL STATUS: .. ALCOHOL SCREENING DID YOU HAVE A DRINK CONTAINING ALCOHOL IN THE PAST YEAR?NO POINTS0 INTERPRETATIONNEGATIVE OCCUPATION: DISABLED. REVIEWED 06/22/17 1131 BVREVIEWED WITH PATIENT 02/23/19 0939 JSREVIEWED WITH PATIENT 04/12/2019 0920 JS. 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 CONSTITUTIONAL: ANY CHANGE IN YOUR MEDICAL CONDITION? YES, EPI - NOW TAKING CREON AND NEXIUM . CHILLS NO . FEVER NO . INFECTION: DO YOU HAVE NEW INFECTIONS? NO . DO YOU HAVE HISTORY OF MRSA? NO . MUSCULOSKELETAL: ANY NEW PATTERNS OF PAIN OR NUMBNESS? YES, STATES SHARP PAINS IN HER RIGHT WRIST - HAS BEEN WEARING HER BRACE TO HELP WITH THE PAIN, STARTED AGAIN BEFORE SIMON . GASTROENTEROLOGY: ANY NEW CHANGE IN BOWEL CONTROL? NO . GENITOURINARY: ANY NEW CHANGE IN BLADDER CONTROL? NO . IS THERE A CHANCE YOU COULD BE ? NO . HEMATOLOGY/LYMPH: DO YOU TAKE ANY BLOOD THINNERS? (FOR EXAMPLE- COUMADIN, PLAVIX, AGGRENOX, PLATEL, PRADAXA, OR XARELTO) NO . WHEN WAS YOUR LAST DOSE? DATE: TIME: . NEUROLOGY: HAVE YOU FALLEN IN THE PAST 12 MONTHS? NO . ANY NEW EXTREMITY NUMBNESS OR WEAKNESS? NO . CARDIOLOGY: DO YOU HAVE A PACEMAKER OR DEFIBRILLATOR? NO . RESPIRATORY: HAVE YOU BEEN SICK IN THE PAST WEEK? NO . FEVER NO . FLU LIKE SYMPTOMS? NO . COUGH NO . INTEGUMENTARY: DO YOU HAVE ANY RASHES OR OPEN SORES? NO . ALLERGIC/IMMUNO: ARE YOU ALLERGIC TO IV DYE? NO . ANY NEW ALLERGIES? NO . PSYCHIATRIC: DO YOU HAVE THOUGHTS OF HURTING YOURSELF OR SOMEONE ELSE? NO . ARE YOU ABUSED, NEGLECTED, OR IN AN UNSAFE ENVIRONMENT? NO . ENDOCRINOLOGY: ARE YOU DIABETIC? NO . OTHER: DO YOU NEED ANY PRESCRIPTIONS? NO . IF YES, PLEASE LIST: ____ . ANY NEW PROBLEMS WITH YOUR MEDICATIONS? NO . WHEN DID YOU LAST EAT? ____ . WHEN DID YOU LAST DRINK? ____ . WHAT DID YOU LAST DRINK? ____ . NAME OF PERSON DRIVING YOU HOME? ____ . DO YOU HAVE ANY OTHER QUESTIONS OR CONCERNS NO . VITAL SIGNS WT 182.2 LBS, HT 63 IN, BMI 32.27 INDEX, BP 114/89 MM HG, HR 99 /MIN, RR 16 /MIN, TEMP 97.6 F, OXYGEN SAT % 99%, SAFE IN ENV? (Y/N) YES, REVIEWED BY: SOHAIL. EXAMINATION GENERAL EXAMINATION: LUNGS:LUNG SOUNDS ARE CLEAR. HEART:HEART RATE REGULAR. MUSCULOSKELETAL:*. NEUROLOGICAL: SENSORY:ABNORMAL -HYPERSENSITIVE TO LIGHT TOUCH RIGHT ARM AND HAND.DECREASED MUSCLE STRENGTH AND REPROGRAPHICS TECHNICIAN STRENGTH RIGHT ARM AND HAND.. ASSESSMENTS PAIN OF RIGHT UPPER EXTREMITY - M79.601 (PRIMARY) PAIN IN RIGHT WRIST - M25.531 TREATMENT PAIN OF RIGHT UPPER EXTREMITY NOTES: RIGHT STELLATE GANGLION BLOCK W IV SEDATION WORKMEN'S COMP. REQUEST. PROCEDURES PN WORKMANS' COMP OPINION IN YOUR OPINION, WAS THE INCIDENT THAT THE PATIENT DESCRIBED THE COMPETENT MEDICAL CAUSE OF THIS INJURY/ILLNESS? YES ARE THE PATIENT'S COMPLAINTS CONSISTENT WITH HIS/HER HISTORY OF THE INJURY/ILLNESS? YES IS THE PATIENT'S HISTORY OF THE INJURY/ILLNESS CONSISTENT WITH YOUR OBJECTIVE FINDING? YES WHAT IS THE PERCENTAGE OF TEMPORARY IMPAIRMENT? MODERATE TO MARKED = 66.7% IS THE PATIENT WORKING? NO DOCTOR ON SITE: CRICKET SUH MD PREVENTIVE MEDICINE PAIN CLINIC TEACHING: PROCEDURE TEACHING REVIEWED INFORMATION ON STELLATE GANGLION PROCEDURE WITH PATIENT. ALSO REVIEWED PRE-PROCEDURE INSTRUCTIONS. PATIENT VERBALIZED AN UNDERSTANDING. NEELA NANCE 04/12/2019 10:20:54 AM > . PROCEDURE CODES FA211 ESTABILISHED PATIENT [facility] FACILITY CHARGE DISPOSITION & COMMUNICATION FOLLOW UP PRE IV SED W /POST Nadine PARRA (REASON: RIGHT STELLATE GANGLION BLOCK W IV SEDATION WORKMENS N'S COMP. REQUEST) ELECTRONICALLY SIGNED BY KIM VEE ON 04/18/2019 AT 12:52 PM EST DISCLAIMER : THIS IS A VISIT SUMMARY EXTRACTED FROM THE [employer] CHART. IT IS NOT A COPY OF THE [employer] PROGRESS NOTE. MUKUL
== END ==
LOC: M PAIN 08:45
PROVIDERS: ATTEND Nurse Practitioner Family
DX: M79.601 Pain in right arm (principal); M25.531 Pain in right wrist; M79.7 Fibromyalgia; Z88.2 Allergy status to sulfonamides; Z88.8 Allergy status to other drugs, medicaments and biological substances; Z79.899 Other long term (current) drug therapy

== ENCOUNTER → 2019-05-22 | Outpatient (CLI) | payer MEDICARE | LOC: M PLALAB 15:15 | PROVIDERS: ATTEND Surgery | DX: Z80.3 Family history of malignant neoplasm of breast (principal); Z80.0 Family history of malignant neoplasm of digestive organs ==

== ENCOUNTER → 2019-05-25 | Outpatient (CLI) | payer MEDICARE ==
--- NOTE | 2019-05-25 12:25 | REP ---
DIGITAL DIAGNOSTIC BILATERAL MAMMOGRAPHY WITH CAD, 3D TOMOGRAPHY, AND FOCUSED BILATERAL BREAST SONOGRAPHY: HISTORY: Two palpable lumps right breast, one palpable lump left breast. Comparison right breast mammography: August 08, 2018 from [facility]. MAMMOGRAPHIC FINDINGS: Opaque skin markers are affixed to the skin at the site of the palpable lumps on the right and the palpable lump on the left. The right-sided lumps projecting the upper outer quadrant. The left-sided skin marker is positioned in the superior and medial quadrant. Routine mammographic views are augmented by magnified focal spot compression images and 3D tomography. On the right, there are three radiolucent lesions consistent with oil cysts at the site of the palpable lumps and there is one focus of dystrophic benign macrocalcification. These were noted previously. The calcifications have decreased in size. The oil cysts are unchanged. They measure 9, 6, and 6 mm in greatest diameter respectively. Scattered fibroglandular elements are seen. No other mammographic abnormality is seen. No suspicious microcalcification or architectural distortion is seen. On the left, scattered fibroglandular elements are seen. No mass or cyst is seen at the site of the palpable lump. There are normal-appearing axillary lymph nodes. No worrisome skin change is seen. SONOGRAPHIC FINDINGS: In the right breast, at approximately 10-o'clock position, 8 cm from the nipple, there is a 7 mm cyst corresponding to one of the oil cyst seen mammographically. At 10-o'clock position, 10 cm from the nipple, there is another measuring 0.4 cm in greatest diameter. No other sonographic abnormality is seen in the right chest. In the left breast scanning through the area of the palpable abnormality shows normal stromal elements. No cyst or mass is seen in the left breast. IMPRESSION: BIRADS 2: BI-RADS/ACR category 2 mammogram. Benign Findings. BIRADS category 2 benign findings. There are three small cysts and some fat necrosis type benign calcifications in the area of the palpable lumps in the right breast. No abnormality is seen mammographically or sonographically in the area of the left breast. Clinical followup is advised. This mammogram was interpreted with the aid of an FDA-approved computer-aided detection system. The patient states she had a clinical breast exam in May 24, 2019. The patient letter being requested is M2. This patient's estimated Tyrer-Cuzick lifetime risk assessment for the breast cancer is 12.4 %.
== END ==
LOC: M WHC 08:44
PROVIDERS: ATTEND Surgery
DX: N60.11 Diffuse cystic mastopathy of right breast (principal)
CPT/HCPCS: 76642; 77066; G0279

== ENCOUNTER → 2019-06-04 | Outpatient (REF) | payer MEDICARE | LOC: M SFHCWAGY 13:07 | PROVIDERS: ATTEND Nurse Practitioner Family | DX: Z12.4 Encounter for screening for malignant neoplasm of cervix (principal); R87.620 Atypical squamous cells of undetermined significance on cytologic smear of vagina (ASC-US) | CPT/HCPCS: 87624; G0101; G0123 ==

== ENCOUNTER → 2019-06-04 | Outpatient (CLI) | payer OTHER, MEDICARE ==
--- NOTE | 2019-06-12 03:59 | ECWPNPC ---
PATIENT NAME: LEVI MARTE : 1965 GENDER: FEMALE VISIT DATE: 06/04/2019 DISCHARGE DATE: 06/04/19 1533 VISIT LOCKED DATE TIME: PHYSICIAN: CRICKET TOVAR MD RESOURCE: CRICKET TOVAR MD REASON FOR APPOINTMENT 1. PRE SEDATE HISTORY OF PRESENT ILLNESS HISTORY OF PRESENT ILLNESS: PAIN THE PATIENT DESCRIBES THE PAIN... 54 YEAR OLD FEMALE PATIENT WITH A HISTORY OF CHRONIC RIGHT ARM AND SHOULDER PAIN. THE PATIENT DESCRIBES THE PAIN ACHING, SORE, TENDER, DAILY, AND CONTINUOUS WITH A PAIN SCORE OF 9-10/10 DEPENDING ON PHYSICAL ACTIVITY. THE PATIENT WAS HURT IN A WORK RELATED INJURY ON 06/09/2009 WHILE WORKING FOR THE [employer], WHERE SHE SAYS HER JOB CONSISTED OF TYPING FOR 12 HOUR SHIFTS AND THE REPETITIVE MOVEMENT FROM TYPING IS WHAT HAS CAUSED HER PAIN. THE PATIENT HAS RECEIVED SEVERAL STELLATE GANGLION BLOCKS IN THE PAST, WITH HER LAST ONE DONE ON 02/08/2019, WHICH SHE SAYS HAS PROVIDED HER WITH GOOD PAIN RELIEF AND INCREASED FUNCTIONALITY FOR OVER 6 WEEKS. THE PATIENT SAYS HER PAIN HAS COME BACK AND SHE WOULD LIKE TO RECEIVE ANOTHER BLOCK. PATIENT DENIES UNEXPLAINABLE WEIGHT LOSS, FEVER, CHILLS, NEW CHANGES ON HER URINARY OR BOWEL CONTROL. FALL RISK SCREENING: SCREENING :NO FALLS REPORTED IN THE LAST YEAR CURRENT MEDICATIONS TAKING DULOXETINE HCL 30 MG CAPSULE DELAYED RELEASE PARTICLES 1 CAPSULE ORALLY TWICE A DAY TAKING GABAPENTIN 400 MG TABLET 1 TABLET ORALLY BID TAKING AMITRIPTYLINE HCL 30 MG TABLET 1 TABLET AT BEDTIME ORALLY ONCE A DAY TAKING OXYCODONE-ACETAMINOPHEN 5-325 MG TABLET 1 TABLET NEEDED ORALLY EVERY 4 HOURS NEEDED TAKING LIDOCAINE & ADHESIVE SHEET 5 % KIT 1 PATCH EXTERNALLY DAILY NEEDED ON 12 HOURS OFF 12 HOURS TAKING PANTOPRAZOLE SODIUM 20 MG TABLET DELAYED RELEASE 1 TABLET ORALLY ONCE A DAY TAKING CREON 77344 UNIT CAPSULE DELAYED RELEASE PARTICLES 2 TABS ORALLY WITH MEALS TAKING NEXIUM 20 MG CAPSULE DELAYED RELEASE 1 CAPSULE ORALLY ONCE A DAY NOT-TAKING DICYCLOMINE HCL 10 MG CAPSULE 2 CAPSULES ORALLY THREE TIMES A DAY NOT-TAKING OMEPRAZOLE 10 MG CAPSULE DELAYED RELEASE 1 CAPSULE ORALLY ONCE A DAY MEDICATION LIST REVIEWED AND RECONCILED WITH THE PATIENT PAST MEDICAL HISTORY KIDNEY STONES CTS, BILATERAL FIBROMYALGIA OSTEOARTHRITIS SCOLIOSIS A CHILD HIGH CHOLESTEROL FATTY LIVER DIVERTICULITIS CRPS RIGHT ARM PAIN LEFT WRIST/HAND POSSIBLE IBS EPI (EXOCRINE PANCREATIC INSUFFICIENCY) TC SCORE 11.18 5 OIL CYSTS OF THE BREASTS ALLERGIES PSEUDOEPHEDRINE HCL: HIVES - ALLERGY SULFA (FOR ALLERGY USE ONLY): HIVES - ALLERGY SURGICAL HISTORY CHOLECYSTECTOMY 2008 CTR, RIGHT 2012 TUBAL LIGATION 2007 LITHOTRIPSY 2004 REMOVAL LIPOMA LEFT ABDOMEN 2014 COLONOSCOPY 2 POLYPS ADENOMATOUS DUE 05/2021 FAMILY HISTORY FATHER: ALIVE 78 YRS, ARTHRITIS, CANCER GALL BLADDER, HYPERTENSION MOTHER: ALIVE 77 YRS, FIBROMYALGIA, ALZHEIMER'S SIBLINGS: ALIVE, 1 BROTHER TESTICULAR CANCER, 1 BROTHER METASTATIC COLON CANCER (), 1 BROTHER HEALTHY MATERNAL GRAND MOTHER: BREAST CANCER MATERNAL AUNT: 2 BREAST CANCER IN 40-50 ONE WITH OVARUAN CANCER IN 40'S 3 BROTHER(S) . 3 SON(S) , 1 DAUGHTER(S) . YOUNGEST SON-PKU, ASTHMA, EXCEMA 2 MATERNAL COUSIND BREAST CANCER 40'S. SOCIAL HISTORY GENERAL: TOBACCO USE ARE YOU A:NONSMOKER NEVER SMOKER HIV / HEP-C SCREENING HIV TEST OFFERED TO PATIENT:YES DATE OFFERED:06/04/2019 TEST ACCEPTED:YES HEP-C TEST OFFERED TO PATIENT:NO BROCHURE PROVIDED TO PATIENTYES OTHERS AT HOME: CHILD, OTHER RELATIVE. EDUCATION LEVEL OF EDUCATION:HIGH SCHOOL DIET: REGULAR. LANGUAGE LANGUAGES SPOKEN:[place] DOMESTIC VIOLENCE DO YOU FEEL SAFE IN YOUR ENVIRONMENT?YES NEW PATIENT PAIN DIARY TODAY'S VISITNOTES BMI CARE GOAL FOLLOW-UP ABOVE NORMAL BMI FOLLOW-UPGIVING ENCOURAGEMENT TO EXERCISE RECREATIONAL DRUG USE DRUG USE?NO EXERCISE: NO REGULAR EXERCISE. LEARNING BARRIERS / SPECIAL NEEDS CHANGE FROM LAST VISIT?NO BARRIERS TO LEARNING?NO HEARING IMPAIRED?YES VISION IMPAIRED?YES COGNITIVELY IMPAIRED?NO : SOME HEARING LOSS RIGHT EAR :CORRECTIVE LENSES READING GLASSES READINESS TO LEARN?YES LEARNING PREFERENCES?YES :DEMONSTRATION/VERBAL INSTRUCTION LEARNING CAPABILITIES PRESENT?YES EMOTIONAL BARRIERS?NO SPECIAL DEVICES?NO MAGNETIC TESTER NEEDED?NO PAIN CLINIC PFS, CLERGY, PUBLIC HEALTH REFERRALS PFS REFERRAL NEEDED?NO CLERGY REFERRAL NEEDED?NO PUBLIC HEALTH REFERRAL NEEDED?NO WAS THE PROVIDER NOTIFIED OF ANY PERTINENT INFO?YES N/A HAS THE PATIENT BEEN EDUCATED REGARDING HIS/HER PLAN OF CARE?YES HAS THE PATIENT BEEN EDUCATED REGARDING PAIN, THE RISK FOR PAIN, THE IMPORTANCE OF EFFECTIVE PAIN MANAGEMENT, AND THE PAIN ASSESSMENT PROCESS?YES LATEX QUESTIONNAIRE LATEX ALLERGY : HAVE YOU EVER DEVELOPED ANY TYPE OF REACTION AFTER HANDLING LATEX PRODUCTS SUCH RUBBER GLOVES, CONDOMS, DIAPHRAGMS, BALLOONS, SOCKS, OR UNDERWEAR?NO LATEX ALLERGY : HAVE YOU EVER DEVELOPED ANY TYPE OF REACTION DURING OR AFTER DENTAL APPOINTMENT, VAGINAL/RECTAL EXAMINATION, SURGICAL PROCEDURE, OR ANY OTHER EXPOSURE?NO LATEX RISK : HAVE YOU EVER HAD ANY DIFFICULTY BREATHING OR HIVES AFTER EATING OR HANDLING ANY FRUITS, OR VEGETABLES; SUCH KIWI, BANANAS, STONE FRUITS, OR CHESTNUTSNO LATEX RISK : DO YOU HAVE A PREVIOUS PERSONAL HISTORY OF MORE THAN NINE SURGERIES, SPINA BIFIDA, OR REPEATED CATHERIZATIONS? NO LATEX RISK : ARE YOU FREQUENTLY EXPOSED TO LATEX PRODUCTS IN YOUR OCCUPATION?NO DATE ASKED : 06/04/2019 CAFFEINE CAFFEINE USE?YES 1 CUP COFFEE DAILY ADVANCE DIRECTIVE ADVANCE DIRECTIVE DISCUSSED WITH PATIENT:YES PT DOES NOT HAVE ANY ADVANCED DIRECTIVES AND SHE DECLINES INFORMATION ON HCP AT THIS TIME. ZOROASTRIANISM [id number] OTHER MARITAL STATUS: .. ALCOHOL SCREENING DID YOU HAVE A DRINK CONTAINING ALCOHOL IN THE PAST YEAR?NO POINTS0 INTERPRETATIONNEGATIVE OCCUPATION: DISABLED. REVIEWED 06/22/17 1131 BVREVIEWED WITH PATIENT 02/23/19 0939 JSREVIEWED WITH PATIENT 04/12/2019 0920 JSREVIEWED WITH PATIENT 06/04/2019 DS. HOSPITALIZATION/MAJOR DIAGNOSTIC PROCEDURE SURGICALLY RELATED CONCUSSION TEENAGER REVIEW OF SYSTEMS REVIEWED BY: PROVIDER: CRICKET TOVAR MD . CONSTITUTIONAL: ANY CHANGE IN YOUR MEDICAL CONDITION? NO . CHILLS NO . FEVER NO . INFECTION: DO YOU HAVE NEW INFECTIONS? NO . DO YOU HAVE HISTORY OF MRSA? NO . MUSCULOSKELETAL: ANY NEW PATTERNS OF PAIN OR NUMBNESS? NO . GASTROENTEROLOGY: ANY NEW CHANGE IN BOWEL CONTROL? NO . GENITOURINARY: ANY NEW CHANGE IN BLADDER CONTROL? NO . IS THERE A CHANCE YOU COULD BE ? NO . HEMATOLOGY/LYMPH: DO YOU TAKE ANY BLOOD THINNERS? (FOR EXAMPLE- COUMADIN, PLAVIX, AGGRENOX, PLATEL, PRADAXA, OR XARELTO) NO . WHEN WAS YOUR LAST DOSE? DATE: TIME: . NEUROLOGY: HAVE YOU FALLEN IN THE PAST 12 MONTHS? NO . ANY NEW EXTREMITY NUMBNESS OR WEAKNESS? NO . CARDIOLOGY: DO YOU HAVE A PACEMAKER OR DEFIBRILLATOR? NO . RESPIRATORY: HAVE YOU BEEN SICK IN THE PAST WEEK? NO . FEVER NO . FLU LIKE SYMPTOMS? NO . COUGH NO . INTEGUMENTARY: DO YOU HAVE ANY RASHES OR OPEN SORES? NO . ALLERGIC/IMMUNO: ARE YOU ALLERGIC TO IV DYE? NO . ANY NEW ALLERGIES? NO . PSYCHIATRIC: DO YOU HAVE THOUGHTS OF HURTING YOURSELF OR SOMEONE ELSE? NO . ARE YOU ABUSED, NEGLECTED, OR IN AN UNSAFE ENVIRONMENT? NO . ENDOCRINOLOGY: ARE YOU DIABETIC? NO . OTHER: DO YOU NEED ANY PRESCRIPTIONS? NO . IF YES, PLEASE LIST: ____ . ANY NEW PROBLEMS WITH YOUR MEDICATIONS? NO . WHEN DID YOU LAST EAT? ____ . WHEN DID YOU LAST DRINK? ____ . WHAT DID YOU LAST DRINK? ____ . NAME OF PERSON DRIVING YOU HOME? ____ . DO YOU HAVE ANY OTHER QUESTIONS OR CONCERNS NO . VITAL SIGNS WT 180.0 LBS, HT 63 IN, BMI 31.88 INDEX, BP 122/76 MM HG, HR 117 /MIN, RR 16 /MIN, TEMP 98.5 F, OXYGEN SAT % 96%, SAFE IN ENV? (Y/N) Y, NA INITIALS AW 1420, REVIEWED BY: ZAYNAB. EXAMINATION GENERAL EXAMINATION: PATIENT IS ALERT O X 3 AND COOPERATIVE. LUNGS CLEAR, TO AUSCULTATION. HEART: NO MURMURS OR GALLOPS; FACIAL CRANIAL NERVES ARE GROSSLY NORMAL. GOOD SYMMETRY OF FACIAL MUSCLE MOVEMENT. NORMAL VISUAL PIÑA. HYPERPATHIA OVER RIGHT ARM AND LATERAL ASPECT OF RIGHT WRIST. RIGHT ARM IS WEAKER AT EXTENSION AND FLEXION. RIGHT HAND TEST ENGINEER NUCLEAR EQUIPMENT IS REDUCED COMPARED WITH THE LEFT SIDE. 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 MARTE' PAIN MANAGEMENT CASE. DUE TO THE PATIENT RECEIVING ADEQUATE PAIN RELIEF FROM STELLATE GANGLION BLOCKS IN THE PAST AND THE PATIENT'S PRESENT PAIN, I WOULD LIKE TO MOVE FORWARD WITH RIGHT STELLATE GANGLION BLOCK AT THIS TIME. THE PATIENT WOULD LIKE TO MOVE FORWARD WITH IV SEDATION DUE TO DISCOMFORT, PAIN, AND ANXIETY ASSOCIATED WITH THE PROCEDURE. THE PATIENT WILL FOLLOW UP IN SEVERAL WEEKS AFTER HER INJECTION TO SEE HOW IT IS HELPING WITH HER PAIN. INSTRUCTIONS WERE GIVEN, QUESTIONS WERE ANSWERED, PATIENT REPORTS UNDERSTANDING AND AGREES WITH THE PLAN. I, ROSELIA ANDRADE, DOCUMENTED THE ABOVE INFORMATION ACTING A SCRIBE FOR DR. TOVAR. I HAVE REVIEWED THE ABOVE DOCUMENT, WRITTEN BY ROSELIA LANG AND I VERIFY THAT IT IS ACCURATE. . PROCEDURES PN WORKMANS' COMP OPINION IN YOUR OPINION, WAS THE INCIDENT THAT THE PATIENT DESCRIBED THE COMPETENT MEDICAL CAUSE OF THIS INJURY/ILLNESS? YES ARE THE PATIENT'S COMPLAINTS CONSISTENT WITH HIS/HER HISTORY OF THE INJURY/ILLNESS? YES IS THE PATIENT'S HISTORY OF THE INJURY/ILLNESS CONSISTENT WITH YOUR OBJECTIVE FINDING? YES WHAT IS THE PERCENTAGE OF TEMPORARY IMPAIRMENT? MODERATE TO MARKED = 66.7% IS THE PATIENT WORKING? NO DOCTOR ON SITE: CRICKET SUH MD PREVENTIVE MEDICINE PAIN CLINIC TEACHING: PROCEDURE TEACHING PT DECLINED PRINTED INFORMATION ON STALLITE GANGLION BLOCK STATING SHE IS FAMILIAR WITH THE PROCEDURE. PRINTED PRE-PROCEDURE INSTRUCTIONS GIVEN TO AND REVIEWED WITH PT. AND SHE VERBALIZED UNDERSTANDING. AD. PROCEDURE CODES [id number] ESTABILISHED PATIENT [facility] FACILITY CHARGE [id number] CURRENT MEDS W/DOSAGES DOCUMENTED [id number] PAIN ASSESS POS TOOL F/U PLAN DOC DISPOSITION & COMMUNICATION FOLLOW UP 3 WEEKS (REASON: STELLATE GANGLION W/ IV SEDATE (BOOKED ON 06/05 ALREADY)) ELECTRONICALLY SIGNED BY CRICKET TOVAR MD, MD ON 06/11/2019 AT 03:33 PM EDT DISCLAIMER : THIS IS A VISIT SUMMARY EXTRACTED FROM THE [employer] CHART. IT IS NOT A COPY OF THE [employer] PROGRESS NOTE. MUKLU
== END ==
LOC: M PAIN 14:30
PROVIDERS: ATTEND Anesthesiology
DX: G56.91 Unspecified mononeuropathy of right upper limb (principal); M79.7 Fibromyalgia; E78.00 Pure hypercholesterolemia, unspecified; K76.0 Fatty (change of) liver, not elsewhere classified; Z79.891 Long term (current) use of opiate analgesic; Z79.899 Other long term (current) drug therapy; Z88.2 Allergy status to sulfonamides; Z88.8 Allergy status to other drugs, medicaments and biological substances

== ENCOUNTER → 2019-06-06 | Outpatient (CLI) | payer OTHER, MEDICARE ==
[~2019-06-06] MED LIST changes: +BUPIVACAINE HCL 0.25% 30 ML VIAL As Ordered ONE; +ISOVUE-M 300 61% 15ML VIAL (Q9967) As Ordered ONE; +LIDOCAINE 1% SDV INJ 30 ML VIAL As Ordered ONE; +MIDAZOLAM INJ 2 MG/2 ML VIAL (J2250) As Ordered ONE; +TRIAMCINOLONE ACETONIDE SUSP 40 MG/ML VIAL (J3301) As Ordered ONE; +fentaNYL 100 MCG/2 ML INJECTION (J3010) As Ordered ONE
--- NOTE | 2019-06-06 16:51 | REP ---
C-ARM VIEWS LOWER CERVICAL SPINE: Four C-Arm views of the lower cervical spine performed. Clinical history: Pain. Injection performed by Dr. Story. Needle is seen in the region of the right cervicothoracic junction. Contrast is injected. 3 seconds fluoroscopy time utilized. Electronically Signed by Evans Rosas MD 06/06/2019 04:59 P
--- NOTE | 2019-06-14 06:07 | ECWPNPC ---
PATIENT NAME: LEVI MARTE : 1965 GENDER: FEMALE VISIT DATE: 06/06/2019 DISCHARGE DATE: 06/06/19 1553 VISIT LOCKED DATE TIME: PHYSICIAN: CRICKET TOVAR MD RESOURCE: CRICKET TOVAR MD REASON FOR APPOINTMENT 1. W/C RIGHT STELLATE GANG BLK W IV SED HISTORY OF PRESENT ILLNESS HISTORY OF PRESENT ILLNESS: PAIN THE PATIENT DESCRIBES THE PAIN... FALL RISK SCREENING: SCREENING :NO FALLS REPORTED IN THE LAST YEAR CURRENT MEDICATIONS TAKING DULOXETINE HCL 30 MG CAPSULE DELAYED RELEASE PARTICLES 1 CAPSULE ORALLY TWICE A DAY, NOTES: 06/05/19 TAKING GABAPENTIN 400 MG TABLET 1 TABLET ORALLY BID, NOTES: 06/06/19 0600 TAKING AMITRIPTYLINE HCL 30 MG TABLET 1 TABLET AT BEDTIME ORALLY ONCE A DAY, NOTES: 06/05/19 TAKING OXYCODONE-ACETAMINOPHEN 5-325 MG TABLET 1 TABLET NEEDED ORALLY EVERY 4 HOURS NEEDED, NOTES: 06/06/19 1000 TAKING LIDOCAINE & ADHESIVE SHEET 5 % KIT 1 PATCH EXTERNALLY DAILY NEEDED ON 12 HOURS OFF 12 HOURS, NOTES: 06/05/19 TAKING PANTOPRAZOLE SODIUM 20 MG TABLET DELAYED RELEASE 1 TABLET ORALLY ONCE A DAY, NOTES: 06/06/19 0600 TAKING CREON 08300 UNIT CAPSULE DELAYED RELEASE PARTICLES 2 TABS ORALLY WITH MEALS, NOTES: 06/05/19 TAKING NEXIUM 20 MG CAPSULE DELAYED RELEASE 1 CAPSULE ORALLY ONCE A DAY, NOTES: 06/05/19 NOT-TAKING DICYCLOMINE HCL 10 MG CAPSULE 2 CAPSULES ORALLY THREE TIMES A DAY NOT-TAKING OMEPRAZOLE 10 MG CAPSULE DELAYED RELEASE 1 CAPSULE ORALLY ONCE A DAY MEDICATION LIST REVIEWED AND RECONCILED WITH THE PATIENT PAST MEDICAL HISTORY KIDNEY STONES CTS, BILATERAL FIBROMYALGIA OSTEOARTHRITIS SCOLIOSIS A CHILD HIGH CHOLESTEROL FATTY LIVER DIVERTICULITIS CRPS RIGHT ARM PAIN LEFT WRIST/HAND POSSIBLE IBS EPI (EXOCRINE PANCREATIC INSUFFICIENCY) TC SCORE 11.18 5 OIL CYSTS OF THE BREASTS ALLERGIES PSEUDOEPHEDRINE HCL: HIVES - ALLERGY SULFA (FOR ALLERGY USE ONLY): HIVES - ALLERGY SURGICAL HISTORY CHOLECYSTECTOMY 2008 CTR, RIGHT 2012 TUBAL LIGATION 2008 LITHOTRIPSY 2004 REMOVAL LIPOMA LEFT ABDOMEN 2014 COLONOSCOPY 2 POLYPS ADENOMATOUS DUE 05/2021 FAMILY HISTORY FATHER: ALIVE 78 YRS, ARTHRITIS, CANCER GALL BLADDER, HYPERTENSION MOTHER: ALIVE 77 YRS, FIBROMYALGIA, ALZHEIMER'S SIBLINGS: ALIVE, 1 BROTHER TESTICULAR CANCER, 1 BROTHER METASTATIC COLON CANCER (), 1 BROTHER HEALTHY MATERNAL GRAND MOTHER: BREAST CANCER MATERNAL AUNT: 2 BREAST CANCER IN 40-50 ONE WITH OVARUAN CANCER IN 40'S 3 BROTHER(S) . 3 SON(S) , 1 DAUGHTER(S) . YOUNGEST SON-PKU, ASTHMA, EXCEMA 2 MATERNAL COUSIND BREAST CANCER 40'S. SOCIAL HISTORY GENERAL: TOBACCO USE ARE YOU A:NONSMOKER NEVER SMOKER HIV / HEP-C SCREENING HIV TEST OFFERED TO PATIENT:YES DATE OFFERED:06/04/2019 TEST ACCEPTED:YES HEP-C TEST OFFERED TO PATIENT:NO BROCHURE PROVIDED TO PATIENTYES OTHERS AT HOME: CHILD, OTHER RELATIVE. EDUCATION LEVEL OF EDUCATION:HIGH SCHOOL DIET: REGULAR. LANGUAGE LANGUAGES SPOKEN:MICRONESIAN DOMESTIC VIOLENCE DO YOU FEEL SAFE IN YOUR ENVIRONMENT?YES NEW PATIENT PAIN DIARY TODAY'S VISITNOTES BMI CARE GOAL FOLLOW-UP ABOVE NORMAL BMI FOLLOW-UPGIVING ENCOURAGEMENT TO EXERCISE RECREATIONAL DRUG USE DRUG USE?NO EXERCISE: NO REGULAR EXERCISE. LEARNING BARRIERS / SPECIAL NEEDS CHANGE FROM LAST VISIT?NO BARRIERS TO LEARNING?NO HEARING IMPAIRED?YES VISION IMPAIRED?YES COGNITIVELY IMPAIRED?NO : SOME HEARING LOSS RIGHT EAR :CORRECTIVE LENSES READING GLASSES READINESS TO LEARN?YES LEARNING PREFERENCES?YES :DEMONSTRATION/VERBAL INSTRUCTION LEARNING CAPABILITIES PRESENT?YES EMOTIONAL BARRIERS?NO SPECIAL DEVICES?NO PROTOTYPE ASSEMBLER ELECTRONICS NEEDED?NO PAIN CLINIC PFS, CLERGY, PUBLIC HEALTH REFERRALS PFS REFERRAL NEEDED?NO CLERGY REFERRAL NEEDED?NO PUBLIC HEALTH REFERRAL NEEDED?NO WAS THE PROVIDER NOTIFIED OF ANY PERTINENT INFO?YES N/A HAS THE PATIENT BEEN EDUCATED REGARDING HIS/HER PLAN OF CARE?YES HAS THE PATIENT BEEN EDUCATED REGARDING PAIN, THE RISK FOR PAIN, THE IMPORTANCE OF EFFECTIVE PAIN MANAGEMENT, AND THE PAIN ASSESSMENT PROCESS?YES LATEX QUESTIONNAIRE LATEX ALLERGY : HAVE YOU EVER DEVELOPED ANY TYPE OF REACTION AFTER HANDLING LATEX PRODUCTS SUCH RUBBER GLOVES, CONDOMS, DIAPHRAGMS, BALLOONS, SOCKS, OR UNDERWEAR?NO LATEX ALLERGY : HAVE YOU EVER DEVELOPED ANY TYPE OF REACTION DURING OR AFTER DENTAL APPOINTMENT, VAGINAL/RECTAL EXAMINATION, SURGICAL PROCEDURE, OR ANY OTHER EXPOSURE?NO DATE ASKED : 06/04/2019 LATEX RISK : HAVE YOU EVER HAD ANY DIFFICULTY BREATHING OR HIVES AFTER EATING OR HANDLING ANY FRUITS, OR VEGETABLES; SUCH KIWI, BANANAS, STONE FRUITS, OR CHESTNUTSNO LATEX RISK : DO YOU HAVE A PREVIOUS PERSONAL HISTORY OF MORE THAN NINE SURGERIES, SPINA BIFIDA, OR REPEATED CATHERIZATIONS? NO LATEX RISK : ARE YOU FREQUENTLY EXPOSED TO LATEX PRODUCTS IN YOUR OCCUPATION?NO CAFFEINE CAFFEINE USE?YES 1 CUP COFFEE DAILY ADVANCE DIRECTIVE ADVANCE DIRECTIVE DISCUSSED WITH PATIENT:YES PT DOES NOT HAVE ANY ADVANCED DIRECTIVES AND SHE DECLINES INFORMATION ON HCP AT THIS TIME. YAZIDI [id number] OTHER MARITAL STATUS: .. ALCOHOL SCREENING DID YOU HAVE A DRINK CONTAINING ALCOHOL IN THE PAST YEAR?NO POINTS0 INTERPRETATIONNEGATIVE OCCUPATION: DISABLED. REVIEWED 06/22/17 1131 BVREVIEWED WITH PATIENT 02/23/19 0939 JSREVIEWED WITH PATIENT 04/12/2019 0920 JSREVIEWED WITH PATIENT 06/04/2019 DS. 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 CONSTITUTIONAL: ANY CHANGE IN YOUR MEDICAL CONDITION? NO . CHILLS NO . FEVER NO . INFECTION: DO YOU HAVE NEW INFECTIONS? NO . DO YOU HAVE HISTORY OF MRSA? NO . MUSCULOSKELETAL: ANY NEW PATTERNS OF PAIN OR NUMBNESS? NO . GASTROENTEROLOGY: ANY NEW CHANGE IN BOWEL CONTROL? NO . GENITOURINARY: ANY NEW CHANGE IN BLADDER CONTROL? NO . IS THERE A CHANCE YOU COULD BE ? NO . HEMATOLOGY/LYMPH: DO YOU TAKE ANY BLOOD THINNERS? (FOR EXAMPLE- COUMADIN, PLAVIX, AGGRENOX, PLATEL, PRADAXA, OR XARELTO) NO . WHEN WAS YOUR LAST DOSE? DATE: TIME: . NEUROLOGY: HAVE YOU FALLEN IN THE PAST 12 MONTHS? NO . ANY NEW EXTREMITY NUMBNESS OR WEAKNESS? NO . CARDIOLOGY: DO YOU HAVE A PACEMAKER OR DEFIBRILLATOR? NO . RESPIRATORY: HAVE YOU BEEN SICK IN THE PAST WEEK? NO . FEVER NO . FLU LIKE SYMPTOMS? NO . COUGH NO . INTEGUMENTARY: DO YOU HAVE ANY RASHES OR OPEN SORES? NO . ALLERGIC/IMMUNO: ARE YOU ALLERGIC TO IV DYE? NO . ANY NEW ALLERGIES? NO . PSYCHIATRIC: DO YOU HAVE THOUGHTS OF HURTING YOURSELF OR SOMEONE ELSE? NO . ARE YOU ABUSED, NEGLECTED, OR IN AN UNSAFE ENVIRONMENT? NO . ENDOCRINOLOGY: ARE YOU DIABETIC? NO . OTHER: DO YOU NEED ANY PRESCRIPTIONS? NO . IF YES, PLEASE LIST: ____ . ANY NEW PROBLEMS WITH YOUR MEDICATIONS? NO . WHEN DID YOU LAST EAT? 06/05/19 2300 . WHEN DID YOU LAST DRINK? 06/06/19 0600 . WHAT DID YOU LAST DRINK? COFFEE . NAME OF PERSON DRIVING YOU HOME? ALISHA . DO YOU HAVE ANY OTHER QUESTIONS OR CONCERNS NO . VITAL SIGNS WT 182.8 LBS, HT 63 IN, BMI 32.38 INDEX, BP 125/81 MM HG, HR 98 /MIN, RR 16 /MIN, TEMP 99.6 F, OXYGEN SAT % 95, REVIEWED BY: MATEO. 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 I WENT THROUGH THE RISKS, ALTERNATIVES, AND BENEFITS ASSOCIATED WITH THIS PROCEDURE AND THE PATIENT EXPRESSED THAT SHE WOULD LIKE TO PROCEED. THE PATIENT DENIES UNEXPLAINABLE WEIGHT LOSS, FEVER, CHILLS, OR CHANGES IN HER URINARY OR BOWEL CONTROL.DESCRIPTION OF PROCEDURE: AFTER CONSENT WAS TAKEN, THE PATIENT WAS BROUGHT TO THE PROCEDURE ROOM AND PLACED IN THE SUPINE POSITION. THE RIGHT NECK AREA WAS CLEANED WITH CHLORAPREP SOLUTION AND DRAPED ASEPTICALLY. THE PROCEDURE WAS DONE UNDER STERILE CONDITIONS. UNDER FLUOROSCOPIC GUIDANCE, TARGET POINT WAS SELECTED AT THE LEVEL APPROXIMATELY OF T7. I ADVANCED A HAVEL 21G ULTRASOUND NEEDLE WITH THE HELP OF AN ULTRASOUND DEVICE. I PUT THE NEEDLE BEHIND THE CAROTID ARTERY AND ANTERIOR TO THE LONGUS COLLI MUSCLE. I USED THE ULTRASOUND TO CHECK THE VASCULAR STRUCTURES AND AVOID NERVES. WHEN APPROPRIATE POSITION OF THE NEEDLE WAS ACHIEVED, ISOVUE M DYE 30%, 1/4 ML, WAS INJECTED SHOWING SPREAD OF THE DYE. THEN A SOLUTION OF 10 ML OF BUPIVACAINE 0.25% AND LIDOCAINE 1%, 50/50 WAS INJECTED WITH KENALOG 40 MG. THERE WAS NO EVIDENCE OF BLOOD, PARESTHESIA, OR CEREBROSPINAL FLUID. THE PATIENT WAS SENT TO THE RECOVERY ROOM. THE PATIENT WAS MOVING EXTREMITIES AND DOING WELL. THERE WERE NO COMPLICATIONS DURING THE PROCEDURE, WHICH WAS DONE WITH VERSED 2 MG INTRAVENOUS, FENTANYL 100 MCG INTRAVENOUS IN DIVIDED DOSES. THE VIVG-BN-TYQU TIME WAS 30 MINUTES. THERE WERE NO COMPLICATIONS. FLUOROSCOPY TIME WAS 3 SECONDS.POST PROCEDURE NOTE: AFTER THE PROCEDURE, THE PATIENT WAS HAVING EVIDENCE OF PTOSIS, EVIDENCE OF AN ADEQUATE BLOCK. I DISCUSSED ALTERNATIVES. WE WILL SEE THE PATIENT IN A FOLLOWUP. WE ARE LOOKING FOR LONG LASTING PAIN RELIEF WITH THIS INTERVENTION. THERE WERE NO COMPLICATIONS. I, ROSELIA ANDRADE, DOCUMENTED THE ABOVE INFORMATION ACTING A SCRIBE FOR DR. TOVAR. I HAVE REVIEWED THE ABOVE DOCUMENT, WRITTEN BY ROSELIA ANDRADE SCRIBE AND I VERIFY THAT IT IS ACCURATE. PROCEDURE CODES 6045F RADXPS IN END [id number] PXD [id number] NEEDLE LOCALIZATION BY XRAY, MODIFIERS: [id number] N BLOCK STELLATE GANGLION, MODIFIERS: [place] [id number] MOD SED SAME PHYS/QHP 5/>YRS 47024 MOD SED SAME PHYS/QHP EA DISPOSITION & COMMUNICATION FOLLOW UP 3 WEEKS ELECTRONICALLY SIGNED BY CRICKET TOVAR MD, MD ON 06/13/2019 AT 09:30 AM EDT DISCLAIMER : THIS IS A VISIT SUMMARY EXTRACTED FROM THE [employer] CHART. IT IS NOT A COPY OF THE [employer] PROGRESS NOTE. MTDD
== END ==
LOC: M PAIN 13:00
PROVIDERS: ATTEND Anesthesiology
DX: G56.91 Unspecified mononeuropathy of right upper limb (principal); Z79.891 Long term (current) use of opiate analgesic; Z88.2 Allergy status to sulfonamides; Z88.8 Allergy status to other drugs, medicaments and biological substances
CPT/HCPCS: 64510; 99152; 99153; J2250; J3010; J3301; Q9967

== ENCOUNTER → 2019-06-08 | Outpatient (CLI) | payer MEDICARE ==
[~2019-06-08] MED LIST changes: -BUPIVACAINE HCL 0.25% 30 ML VIAL As Ordered ONE; -ISOVUE-M 300 61% 15ML VIAL (Q9967) As Ordered ONE; -LIDOCAINE 1% SDV INJ 30 ML VIAL As Ordered ONE; -MIDAZOLAM INJ 2 MG/2 ML VIAL (J2250) As Ordered ONE; -TRIAMCINOLONE ACETONIDE SUSP 40 MG/ML VIAL (J3301) As Ordered ONE; -fentaNYL 100 MCG/2 ML INJECTION (J3010) As Ordered ONE
--- NOTE | 2019-06-08 18:29 | REP ---
Pelvic sonography: History: Pelvic pain. Findings: Transabdominal and transvaginal scanning are performed. Uterine dimensions are normal at 7.5 x 2.7 x 3.7 cm. Endometrial echo 0.4 cm thick. No free fluid is seen. No focal uterine mass is seen. Neither ovary could be identified transabdominally or transvaginally. No adnexal cystic lesion or mass lesion is seen on either side. Impression: Neither ovary could be identified transabdominally or transvaginally. Normal uterus. No abnormality noted. Electronically Signed by Romeo Villegas MD 06/08/2019 06:20 P
== END ==
LOC: M WHC 07:52
PROVIDERS: ATTEND Nurse Practitioner Family
DX: R10.2 Pelvic and perineal pain (principal)

== ENCOUNTER → 2019-06-21 | Outpatient (CLI) | payer OTHER, MEDICARE ==
--- NOTE | 2019-06-22 03:15 | ECWPNPC ---
PATIENT NAME: LEVI MARTE : 1965 GENDER: FEMALE VISIT DATE: 06/21/2019 DISCHARGE DATE: 06/21/19 1000 VISIT LOCKED DATE TIME: PHYSICIAN: AIDA THOMPSON RESOURCE: AIDA THOMPSON REASON FOR APPOINTMENT 1. POST STELLATE BLK HISTORY OF PRESENT ILLNESS HISTORY OF PRESENT ILLNESS: HERE FOR POST PROC. F/U.HAD RIGHT SYMPATHETIC GANGLION BLOCK ON 06-06-19.REPORTS 100% IMPROVEMENT IN PAIN POST PROCEDURE THAT CONTINUES TODAY. REPORTS IMPROVED SLEEP POST PROCEDURE.REPORTING IMPROVED MENTAL FOCUS AND ABILITY TO BE INVOLVED WITH FAMILY EVENTS MENTALLY DUE TO BETTER PAIN CONTROL POST PROCEDURE.THIS IS A WORK RELATED INJURY ON 06-09-2009. PAIN THE PATIENT DESCRIBES THE PAIN... FALL RISK SCREENING: SCREENING :NO FALLS REPORTED IN THE LAST YEAR CURRENT MEDICATIONS TAKING DULOXETINE HCL 30 MG CAPSULE DELAYED RELEASE PARTICLES 1 CAPSULE ORALLY TWICE A DAY TAKING GABAPENTIN 400 MG TABLET 1 TABLET ORALLY BID TAKING AMITRIPTYLINE HCL 30 MG TABLET 1 TABLET AT BEDTIME ORALLY ONCE A DAY TAKING OXYCODONE-ACETAMINOPHEN 5-325 MG TABLET 1 TABLET NEEDED ORALLY EVERY 4 HOURS NEEDED TAKING LIDOCAINE & ADHESIVE SHEET 5 % KIT 1 PATCH EXTERNALLY DAILY NEEDED ON 12 HOURS OFF 12 HOURS TAKING PANTOPRAZOLE SODIUM 20 MG TABLET DELAYED RELEASE 1 TABLET ORALLY ONCE A DAY TAKING CREON 29947 UNIT CAPSULE DELAYED RELEASE PARTICLES 2 TABS ORALLY WITH MEALS TAKING NEXIUM 20 MG CAPSULE DELAYED RELEASE 1 CAPSULE ORALLY ONCE A DAY NOT-TAKING DICYCLOMINE HCL 10 MG CAPSULE 2 CAPSULES ORALLY THREE TIMES A DAY NOT-TAKING OMEPRAZOLE 10 MG CAPSULE DELAYED RELEASE 1 CAPSULE ORALLY ONCE A DAY MEDICATION LIST REVIEWED AND RECONCILED WITH THE PATIENT PAST MEDICAL HISTORY KIDNEY STONES CTS, BILATERAL FIBROMYALGIA OSTEOARTHRITIS SCOLIOSIS A CHILD HIGH CHOLESTEROL FATTY LIVER DIVERTICULITIS CRPS RIGHT ARM PAIN LEFT WRIST/HAND POSSIBLE IBS EPI (EXOCRINE PANCREATIC INSUFFICIENCY) TC SCORE 11.18 5 OIL CYSTS OF THE BREASTS ALLERGIES PSEUDOEPHEDRINE HCL: HIVES - ALLERGY SULFA (FOR ALLERGY USE ONLY): HIVES - ALLERGY SURGICAL HISTORY CHOLECYSTECTOMY 2008 CTR, RIGHT 2012 TUBAL LIGATION 2008 LITHOTRIPSY 2005 REMOVAL LIPOMA LEFT ABDOMEN 2014 COLONOSCOPY 2 POLYPS ADENOMATOUS DUE 05/2021 FAMILY HISTORY FATHER: ALIVE 78 YRS, ARTHRITIS, CANCER GALL BLADDER, HYPERTENSION MOTHER: ALIVE 77 YRS, FIBROMYALGIA, ALZHEIMER'S SIBLINGS: ALIVE, 1 BROTHER TESTICULAR CANCER, 1 BROTHER METASTATIC COLON CANCER (), 1 BROTHER HEALTHY MATERNAL GRAND MOTHER: BREAST CANCER MATERNAL AUNT: 2 BREAST CANCER IN 40-50 ONE WITH OVARUAN CANCER IN 40'S 3 BROTHER(S) . 3 SON(S) , 1 DAUGHTER(S) . YOUNGEST SON-PKU, ASTHMA, EXCEMA 2 MATERNAL COUSIND BREAST CANCER 40'S. SOCIAL HISTORY GENERAL: TOBACCO USE ARE YOU A:NONSMOKER NEVER SMOKER HIV / HEP-C SCREENING HIV TEST OFFERED TO PATIENT:YES DATE OFFERED:06/04/2019 TEST ACCEPTED:YES HEP-C TEST OFFERED TO PATIENT:NO BROCHURE PROVIDED TO PATIENTYES OTHERS AT HOME: CHILD, OTHER RELATIVE. EDUCATION LEVEL OF EDUCATION:HIGH SCHOOL DIET: REGULAR. LANGUAGE LANGUAGES SPOKEN:[place] DOMESTIC VIOLENCE DO YOU FEEL SAFE IN YOUR ENVIRONMENT?YES NEW PATIENT PAIN DIARY TODAY'S VISITNOTES 06/21/2019 FROM 0-10, WHAT LEVEL IS YOUR PAIN TODAY?0 BMI CARE GOAL FOLLOW-UP ABOVE NORMAL BMI FOLLOW-UPGIVING ENCOURAGEMENT TO EXERCISE RECREATIONAL DRUG USE DRUG USE?NO EXERCISE: NO REGULAR EXERCISE. LEARNING BARRIERS / SPECIAL NEEDS CHANGE FROM LAST VISIT?NO BARRIERS TO LEARNING?NO HEARING IMPAIRED?YES VISION IMPAIRED?YES COGNITIVELY IMPAIRED?NO : SOME HEARING LOSS RIGHT EAR :CORRECTIVE LENSES READING GLASSES READINESS TO LEARN?YES LEARNING PREFERENCES?YES :DEMONSTRATION/VERBAL INSTRUCTION LEARNING CAPABILITIES PRESENT?YES EMOTIONAL BARRIERS?NO SPECIAL DEVICES?NO CARE CENTER MANAGER NEEDED?NO PAIN CLINIC PFS, CLERGY, PUBLIC HEALTH REFERRALS PFS REFERRAL NEEDED?NO CLERGY REFERRAL NEEDED?NO PUBLIC HEALTH REFERRAL NEEDED?NO WAS THE PROVIDER NOTIFIED OF ANY PERTINENT INFO?YES N/A HAS THE PATIENT BEEN EDUCATED REGARDING HIS/HER PLAN OF CARE?YES HAS THE PATIENT BEEN EDUCATED REGARDING PAIN, THE RISK FOR PAIN, THE IMPORTANCE OF EFFECTIVE PAIN MANAGEMENT, AND THE PAIN ASSESSMENT PROCESS?YES LATEX QUESTIONNAIRE LATEX ALLERGY : HAVE YOU EVER DEVELOPED ANY TYPE OF REACTION AFTER HANDLING LATEX PRODUCTS SUCH RUBBER GLOVES, CONDOMS, DIAPHRAGMS, BALLOONS, SOCKS, OR UNDERWEAR?NO LATEX ALLERGY : HAVE YOU EVER DEVELOPED ANY TYPE OF REACTION DURING OR AFTER DENTAL APPOINTMENT, VAGINAL/RECTAL EXAMINATION, SURGICAL PROCEDURE, OR ANY OTHER EXPOSURE?NO LATEX RISK : HAVE YOU EVER HAD ANY DIFFICULTY BREATHING OR HIVES AFTER EATING OR HANDLING ANY FRUITS, OR VEGETABLES; SUCH KIWI, BANANAS, STONE FRUITS, OR CHESTNUTSNO LATEX RISK : DO YOU HAVE A PREVIOUS PERSONAL HISTORY OF MORE THAN NINE SURGERIES, SPINA BIFIDA, OR REPEATED CATHERIZATIONS? NO LATEX RISK : ARE YOU FREQUENTLY EXPOSED TO LATEX PRODUCTS IN YOUR OCCUPATION?NO DATE ASKED : 06/04/2019 CAFFEINE CAFFEINE USE?YES 1 CUP COFFEE DAILY ADVANCE DIRECTIVE ADVANCE DIRECTIVE DISCUSSED WITH PATIENT:YES 06/21/2019 PT DOES NOT HAVE ANY ADVANCED DIRECTIVES AND SHE DECLINES INFORMATION ON HCP AT THIS TIME. JS [employer] [id number] OTHER MARITAL STATUS: .. ALCOHOL SCREENING DID YOU HAVE A DRINK CONTAINING ALCOHOL IN THE PAST YEAR?NO POINTS0 INTERPRETATIONNEGATIVE OCCUPATION: DISABLED. 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 CONSTITUTIONAL: ANY CHANGE IN YOUR MEDICAL CONDITION? NO . CHILLS NO . FEVER NO . INFECTION: DO YOU HAVE NEW INFECTIONS? NO . DO YOU HAVE HISTORY OF MRSA? NO . MUSCULOSKELETAL: ANY NEW PATTERNS OF PAIN OR NUMBNESS? NO . GASTROENTEROLOGY: ANY NEW CHANGE IN BOWEL CONTROL? NO . GENITOURINARY: ANY NEW CHANGE IN BLADDER CONTROL? NO . IS THERE A CHANCE YOU COULD BE ? NO . HEMATOLOGY/LYMPH: DO YOU TAKE ANY BLOOD THINNERS? (FOR EXAMPLE- COUMADIN, PLAVIX, AGGRENOX, PLATEL, PRADAXA, OR XARELTO) NO . WHEN WAS YOUR LAST DOSE? DATE: TIME: . NEUROLOGY: HAVE YOU FALLEN IN THE PAST 12 MONTHS? NO . ANY NEW EXTREMITY NUMBNESS OR WEAKNESS? NO . CARDIOLOGY: DO YOU HAVE A PACEMAKER OR DEFIBRILLATOR? NO . RESPIRATORY: HAVE YOU BEEN SICK IN THE PAST WEEK? NO . FEVER NO . FLU LIKE SYMPTOMS? NO . COUGH NO . INTEGUMENTARY: DO YOU HAVE ANY RASHES OR OPEN SORES? NO . ALLERGIC/IMMUNO: ARE YOU ALLERGIC TO IV DYE? NO . ANY NEW ALLERGIES? NO . PSYCHIATRIC: DO YOU HAVE THOUGHTS OF HURTING YOURSELF OR SOMEONE ELSE? NO . ARE YOU ABUSED, NEGLECTED, OR IN AN UNSAFE ENVIRONMENT? NO . ENDOCRINOLOGY: ARE YOU DIABETIC? NO . OTHER: DO YOU NEED ANY PRESCRIPTIONS? NO . IF YES, PLEASE LIST: ____ . ANY NEW PROBLEMS WITH YOUR MEDICATIONS? NO . WHEN DID YOU LAST EAT? ____ . WHEN DID YOU LAST DRINK? ____ . WHAT DID YOU LAST DRINK? ____ . NAME OF PERSON DRIVING YOU HOME? ____ . DO YOU HAVE ANY OTHER QUESTIONS OR CONCERNS NO . VITAL SIGNS WT 179.6 LBS, HT 63 IN, BMI 31.81 INDEX, BP 115/74 MM HG, HR 101 /MIN, RR 16 /MIN, TEMP 96.0 F, OXYGEN SAT % 96%, SAFE IN ENV? (Y/N) YES, NA INITIALS AW 0947, REVIEWED BY: SOHAIL. EXAMINATION GENERAL EXAMINATION: LUNGS:LUNG SOUNDS ARE CLEAR. HEART:HEART RATE REGULAR. MUSCULOSKELETAL:*. 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 YES ARE THE PATIENT'S COMPLAINTS CONSISTENT WITH HIS/HER HISTORY OF THE INJURY/ILLNESS? YES IS THE PATIENT'S HISTORY OF THE INJURY/ILLNESS CONSISTENT WITH YOUR OBJECTIVE FINDING? YES WHAT IS THE PERCENTAGE OF TEMPORARY IMPAIRMENT? MODERATE TO MARKED = 66.7% IS THE PATIENT WORKING? NO DOCTOR ON SITE: [facility] MD PROCEDURE CODES FA211 ESTABILISHED PATIENT [facility] CHARGE DISPOSITION & COMMUNICATION FOLLOW UP 2 MONTHS (REASON: W/C RIGHT ARM) ELECTRONICALLY SIGNED BY KIM VEE ON 06/21/2019 AT 10:11 AM EDT DISCLAIMER : THIS IS A VISIT SUMMARY EXTRACTED FROM THE [employer] CHART. IT IS NOT A COPY OF THE [employer] PROGRESS NOTE. [email or web address]
== END ==
LOC: M PAIN 09:30
PROVIDERS: ATTEND Nurse Practitioner Family
DX: M79.2 Neuralgia and neuritis, unspecified (principal); Z79.891 Long term (current) use of opiate analgesic; Z79.899 Other long term (current) drug therapy; Z88.2 Allergy status to sulfonamides; Z88.8 Allergy status to other drugs, medicaments and biological substances

== ENCOUNTER → 2019-10-22 | Outpatient (CLI) | payer OTHER, MEDICARE ==
[~2019-10-22] MED LIST changes: +DOXY100C37 PO; +NORC1TAB7 PO
--- NOTE | 2019-10-23 08:22 | ECWPNPC ---
PATIENT NAME: LEVI MARTE : 1965 GENDER: FEMALE VISIT DATE: 10/22/2019 DISCHARGE DATE: 10/22/19943 VISIT LOCKED DATE TIME: PHYSICIAN: AIDA THOMPSON RESOURCE: AIDA THOMPSON REASON FOR APPOINTMENT 1. PREPROCEDURE W/C RIGHT ARM PAIN HISTORY OF PRESENT ILLNESS GENERAL: -. FALL RISK SCREENING: SCREENING :NO FALLS REPORTED IN THE LAST YEAR PAIN SCREENING: PATIENT HAS A COMPLAINT OF ACUTE OR CHRONIC PAIN :YES LOCATION OF PAIN:OTHER: RIGHT ARM, WRIST AND HAND INTENSITY OF PAIN (SCALE OF 1 TO 10):10 WHAT DOES YOUR PAIN FEEL LIKE:ACHING, CONTINOUS, TENDER, THROBBING, SORE, SHOOTING NURSING NOTE: -. PAIN CENTER INTAKE QUESTIONS: DO YOU HAVE A HISTORY OF MRSA? :NO DO YOU TAKE A BLOOD THINNERS? :NO DO YOU HAVE ANY BLEEDING DISORDERS? :NO ANY NEW NUMBNESS OR WEAKNESS IN YOUR LEGS OR ARMS? :YES WEAKNESS IN BILATERAL HANDS ANY PACEMAKER,DEFIBRILLATOR, OR DORSAL COLUMN STIMULATOR? :NO DO YOU HAVE ANY RASHES OR OPEN SORES? :NO ARE YOU ALLERGIC TO IV DYE? :NO ARE YOU DIABETIC? :NO ANY NEW PROBLEMS WITH YOUR MEDICATIONS? :NO HAVE YOU RECEIVED A VACCINE IN THE PAST 30 DAYS? :NO DO YOU PLAN TO RECEIVE A VACCINE IN THE NEXT 21 DAYS? :NO DO YOU NEED ANY PRESCRIPTION? :NO DO YOU TAKE ANY IMMUNOSUPPRESSIVE MEDICATIONS? :NO IS THERE A CHANCE YOU COULD BE ? :NO ARE YOU BREAST FEEDING? :NO HISTORY OF PRESENT ILLNESS: THIS IS A WORK RELATED INJURY ON 06-09-2009. 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 RESPONDS WELL TO STELLATE GANGLION BLOCK. STATES PAIN HAS BEEN SEVERE OVER THE PAST 3 MONTHS. RATING PAIN LEVEL A 10/10 VAS. DISCUSSED TREATMENT OPTIONS. PAIN THE PATIENT DESCRIBES THE PAIN... CURRENT MEDICATIONS TAKING DULOXETINE HCL 30 MG CAPSULE DELAYED RELEASE PARTICLES 1 CAPSULE ORALLY TWICE A DAY TAKING GABAPENTIN 400 MG TABLET 1 TABLET ORALLY BID TAKING AMITRIPTYLINE HCL 30 MG TABLET 1 TABLET AT BEDTIME ORALLY ONCE A DAY TAKING OXYCODONE-ACETAMINOPHEN 5-325 MG TABLET 1 TABLET NEEDED ORALLY EVERY 4 HOURS NEEDED TAKING LIDOCAINE & ADHESIVE SHEET 5 % KIT 1 PATCH EXTERNALLY DAILY NEEDED ON 12 HOURS OFF 12 HOURS TAKING PANTOPRAZOLE SODIUM 20 MG TABLET DELAYED RELEASE 1 TABLET ORALLY ONCE A DAY TAKING CREON 69725 UNIT CAPSULE DELAYED RELEASE PARTICLES 2 TABS ORALLY WITH MEALS TAKING NEXIUM 20 MG CAPSULE DELAYED RELEASE 1 CAPSULE ORALLY ONCE A DAY TAKING SIMVASTATIN 10 MG TABLET 1 TABLET IN THE EVENING ORALLY ONCE A DAY NOT-TAKING DICYCLOMINE HCL 10 MG CAPSULE 2 CAPSULES ORALLY THREE TIMES A DAY NOT-TAKING OMEPRAZOLE 10 MG CAPSULE DELAYED RELEASE 1 CAPSULE ORALLY ONCE A DAY MEDICATION LIST REVIEWED AND RECONCILED WITH THE PATIENT PAST MEDICAL HISTORY KIDNEY STONES CTS, BILATERAL FIBROMYALGIA OSTEOARTHRITIS SCOLIOSIS A CHILD HIGH CHOLESTEROL FATTY LIVER DIVERTICULITIS CRPS RIGHT ARM PAIN LEFT WRIST/HAND POSSIBLE IBS EPI (EXOCRINE PANCREATIC INSUFFICIENCY) TC SCORE 11.18 5 OIL CYSTS OF THE BREASTS ALLERGIES PSEUDOEPHEDRINE HCL: HIVES - ALLERGY SULFA (FOR ALLERGY USE ONLY): HIVES - ALLERGY SURGICAL HISTORY CHOLECYSTECTOMY 2008 CTR, RIGHT 2012 TUBAL LIGATION 2007 LITHOTRIPSY 2004 REMOVAL LIPOMA LEFT ABDOMEN 2014 COLONOSCOPY 2 POLYPS ADENOMATOUS DUE 05/2021 FAMILY HISTORY FATHER: ALIVE 78 YRS, ARTHRITIS, CANCER GALL BLADDER, HYPERTENSION MOTHER: ALIVE 77 YRS, FIBROMYALGIA, ALZHEIMER'S SIBLINGS: ALIVE, 1 BROTHER TESTICULAR CANCER, 1 BROTHER METASTATIC COLON CANCER (), 1 BROTHER HEALTHY MATERNAL GRAND MOTHER: BREAST CANCER MATERNAL AUNT: 2 BREAST CANCER IN 40-50 ONE WITH OVARUAN CANCER IN 40'S 3 BROTHER(S) . 3 SON(S) , 1 DAUGHTER(S) . YOUNGEST SON-PKU, ASTHMA, EXCEMA 2 MATERNAL COUSIND BREAST CANCER 40'S. SOCIAL HISTORY GENERAL: TOBACCO USE ARE YOU A:NONSMOKER NEVER SMOKER LATEX QUESTIONNAIRE LATEX ALLERGY : HAVE YOU EVER DEVELOPED ANY TYPE OF REACTION AFTER HANDLING LATEX PRODUCTS SUCH RUBBER GLOVES, CONDOMS, DIAPHRAGMS, BALLOONS, SOCKS, OR UNDERWEAR?NO LATEX ALLERGY : HAVE YOU EVER DEVELOPED ANY TYPE OF REACTION DURING OR AFTER DENTAL APPOINTMENT, VAGINAL/RECTAL EXAMINATION, SURGICAL PROCEDURE, OR ANY OTHER EXPOSURE?NO LATEX RISK : HAVE YOU EVER HAD ANY DIFFICULTY BREATHING OR HIVES AFTER EATING OR HANDLING ANY FRUITS, OR VEGETABLES; SUCH KIWI, BANANAS, STONE FRUITS, OR CHESTNUTSNO LATEX RISK : DO YOU HAVE A PREVIOUS PERSONAL HISTORY OF MORE THAN NINE SURGERIES, SPINA BIFIDA, OR REPEATED CATHERIZATIONS? NO LATEX RISK : ARE YOU FREQUENTLY EXPOSED TO LATEX PRODUCTS IN YOUR OCCUPATION?NO DATE ASKED : 10/22/2019 BMI CARE GOAL FOLLOW-UP ABOVE NORMAL BMI FOLLOW-UPGIVING ENCOURAGEMENT TO EXERCISE ALCOHOL SCREENING DID YOU HAVE A DRINK CONTAINING ALCOHOL IN THE PAST YEAR?NO POINTS0 INTERPRETATIONNEGATIVE RECREATIONAL DRUG USE DRUG USE?NO CAFFEINE CAFFEINE USE?YES 1 CUP COFFEE DAILY HIV / HEP-C SCREENING HIV TEST OFFERED TO PATIENT:YES DATE OFFERED:06/04/2019 TEST ACCEPTED:YES HEP-C TEST OFFERED TO PATIENT:NO BROCHURE PROVIDED TO PATIENTYES [employer] [id number] OTHER LANGUAGE LANGUAGES SPOKEN:[place] EDUCATION LEVEL OF EDUCATION:HIGH SCHOOL LEARNING BARRIERS / SPECIAL NEEDS CHANGE FROM LAST VISIT?NO BARRIERS TO LEARNING?NO HEARING IMPAIRED?YES VISION IMPAIRED?YES COGNITIVELY IMPAIRED?NO : SOME HEARING LOSS RIGHT EAR :CORRECTIVE LENSES READING GLASSES READINESS TO LEARN?YES LEARNING PREFERENCES?YES :DEMONSTRATION/VERBAL INSTRUCTION LEARNING CAPABILITIES PRESENT?YES EMOTIONAL BARRIERS?NO SPECIAL DEVICES?NO HAND CLOTH EXAMINER NEEDED?NO DOMESTIC VIOLENCE DO YOU FEEL SAFE IN YOUR ENVIRONMENT?YES OCCUPATION: DISABLED. DIET: REGULAR. EXERCISE: NO REGULAR EXERCISE. MARITAL STATUS: .. OTHERS AT HOME: CHILD, OTHER RELATIVE. PAIN CLINIC PFS, CLERGY, PUBLIC HEALTH REFERRALS PFS REFERRAL NEEDED?NO CLERGY REFERRAL NEEDED?NO PUBLIC HEALTH REFERRAL NEEDED?NO WAS THE PROVIDER NOTIFIED OF ANY PERTINENT INFO?YES N/A HAS THE PATIENT BEEN EDUCATED REGARDING HIS/HER PLAN OF CARE?YES HAS THE PATIENT BEEN EDUCATED REGARDING PAIN, THE RISK FOR PAIN, THE IMPORTANCE OF EFFECTIVE PAIN MANAGEMENT, AND THE PAIN ASSESSMENT PROCESS?YES ADVANCE DIRECTIVE ADVANCE DIRECTIVE DISCUSSED WITH PATIENT:YES PT DOES NOT HAVE ANY ADVANCED DIRECTIVES AND SHE DECLINES INFORMATION ON HCP AT THIS TIME. HOSPITALIZATION/MAJOR DIAGNOSTIC PROCEDURE SURGICALLY RELATED CONCUSSION TEENAGER REVIEW OF SYSTEMS CONSTITUTIONAL: ANY RECENT FEVER NO, NO . CHILLS NO, NO . WEIGHT CHANGE OF UNKNOWN REASONS NO, NO . GASTROENTEROLOGY: NEW UNEXPLAINABLE CHANGES IN BOWEL CONTROL NO, NO . CONSTIPATION NO, NO . GENITOURINARY: ANY NEW CHANGE IN BLADDER CONTROL? NO, NO . NEUROLOGY: NEW ONSET DIZZINESS OR NEUROLOGICAL CHANGES NOT MENTIONED NO, NO . NEW NUMBNESS OR PAIN PATTERNS NOT MENTIONED AND PERTINENT TO TODAY'S VISIT NO, NO . CARDIOLOGY: NEW CHEST PRESSURE NO, NO . NEW CHEST PAIN NO, NO . RESPIRATORY: UNEXPLAINABLE COUGH NO, NO . NEW SHORTNESS OF BREATH NO, NO . VITAL SIGNS WT 182.6 LBS, HT 63 IN, BMI 32.34 INDEX, BP 132/79 MM HG, HR 95 /MIN, RR 16 /MIN, TEMP 98.7 F, OXYGEN SAT % 95%, SAFE IN ENV? (Y/N) Y, NA INITIALS AL 09:24, REVIEWED BY: ZAYNBA. EXAMINATION GENERAL EXAMINATION: LUNGS:LUNG SOUNDS ARE CLEAR. HEART:HEART RATE REGULAR. MUSCULOSKELETAL:*. NEUROLOGICAL: SENSORY:ABNORMAL -HYPERSENSITIVE TO LIGHT TOUCH RIGHT ARM AND HAND.DECREASED MUSCLE STRENGTH AND RUG CUTTER HELPER STRENGTH RIGHT ARM AND HAND.. 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 PROCEDURES PN WORKMANS' COMP OPINION IN YOUR OPINION, WAS THE INCIDENT THAT THE PATIENT DESCRIBED THE COMPETENT MEDICAL CAUSE OF THIS INJURY/ILLNESS? YES ARE THE PATIENT'S COMPLAINTS CONSISTENT WITH HIS/HER HISTORY OF THE INJURY/ILLNESS? YES IS THE PATIENT'S HISTORY OF THE INJURY/ILLNESS CONSISTENT WITH YOUR OBJECTIVE FINDING? YES WHAT IS THE PERCENTAGE OF TEMPORARY IMPAIRMENT? MODERATE TO MARKED = 66.7% IS THE PATIENT WORKING? NO DOCTOR ON SITE: [facility] MD PREVENTIVE MEDICINE PAIN CLINIC TEACHING: THE PATIENT HAS BEEN EDUCATED REGARDING PAIN, THE RISK FOR PAIN, THE IMPORTANCE OF EFFECTIVE PAIN MANAGEMENT, AND THE PAIN ASSESSMENT PROCESS. : REVIEWED PRE-PROCEDURE INSTRUCTIONS AND PLAN OF CARE WITH PATIENT, PT ACKNOWLEDGED UNDERSTANDING, ZAYNAB PROCEDURE CODES FA211 ESTABILISHED PATIENT [facility] FACILITY CHARGE DISPOSITION & COMMUNICATION FOLLOW UP POST WITH MEDICAL ACCOUNTS RECEIVABLE SPECIALIST/PRESEDATE APT DR Crow (REASON: REQUEST RIGHT STELLATE GANGLION BLOCK W/C) ELECTRONICALLY SIGNED BY KIM VEE ON 10/22/2019 AT 01:26 PM EDT DISCLAIMER : THIS IS A VISIT SUMMARY EXTRACTED FROM THE [employer] CHART. IT IS NOT A COPY OF THE [employer] PROGRESS NOTE. MUKUL
== END ==
LOC: M PAIN 09:30
PROVIDERS: ATTEND Nurse Practitioner Family
DX: M79.2 Neuralgia and neuritis, unspecified (principal); G56.91 Unspecified mononeuropathy of right upper limb

== ENCOUNTER → 2019-11-21 | Outpatient (POV) | payer OTHER, MEDICARE | LOC: M PAIN 11:30 | PROVIDERS: ATTEND Anesthesiology | DX: M79.621 Pain in right upper arm (principal) ==

== ENCOUNTER → 2019-11-22 | Outpatient (CLI) | payer OTHER, MEDICARE ==
[~2019-11-22] MED LIST changes: +BUPIVACAINE HCL 0.25% 30ML VIAL As Ordered ONE; +ISOVUE-M 300 61% 15ML VIAL As Ordered ONE; +LIDOCAINE 1% SDV 30ML VIAL As Ordered ONE; +MIDAZOLAM INJ 2MG/2ML VIAL (J2250 PER 1MG) As Ordered ONE; +TRIAMCINOLONE ACETONIDE SUSP 40 MG/ML VIAL (J3301) As Ordered ONE; +fentaNYL 100 MCG/2 ML INJECTION (J3010) As Ordered ONE
== END ==
LOC: M PAIN 09:00
PROVIDERS: ATTEND Anesthesiology
DX: Z53.9 Procedure and treatment not carried out, unspecified reason (principal)

== ENCOUNTER → 2019-11-22 | Outpatient (POV) | payer OTHER, MEDICARE ==
[~2019-11-22] MED LIST changes: -BUPIVACAINE HCL 0.25% 30ML VIAL As Ordered ONE; +BUPIVACAINE HCL 0.25% 30ML VIAL ONE; -ISOVUE-M 300 61% 15ML VIAL As Ordered ONE; +ISOVUE-M 300 61% 15ML VIAL ONE; -LIDOCAINE 1% SDV 30ML VIAL As Ordered ONE; +LIDOCAINE 1% SDV 30ML VIAL ONE; -MIDAZOLAM INJ 2MG/2ML VIAL (J2250 PER 1MG) As Ordered ONE; +MIDAZOLAM INJ 2MG/2ML VIAL (J2250 PER 1MG) ONE; -TRIAMCINOLONE ACETONIDE SUSP 40 MG/ML VIAL (J3301) As Ordered ONE; +TRIAMCINOLONE ACETONIDE SUSP 40 MG/ML VIAL (J3301) ONE; -fentaNYL 100 MCG/2 ML INJECTION (J3010) As Ordered ONE; +fentaNYL 100 MCG/2 ML INJECTION (J3010) ONE
--- NOTE | 2019-12-28 13:38 | REP ---
STELLATE GANGLION BLOCK: HISTORY: Pain. 19 seconds of fluoroscopy time is reported. FINDINGS: A single last image hold fluoroscopically obtained spot radiograph of the base of the neck documents needle position and contrast injection associated with injection procedure. MUKUL
== END ==
LOC: M PAIN 09:00
PROVIDERS: ATTEND Anesthesiology
DX: M79.7 Fibromyalgia (principal)

== ENCOUNTER 2020-01-08 09:25 | Emergency (ER) | payer MEDICARE, OTHER ==
[~2020-01-08] VITALS: Ht 160 cm; Wt 81.4 kg
[~2020-01-08 09:25] MED LIST changes: -BUPIVACAINE HCL 0.25% 30ML VIAL ONE; -DOXY100C37 PO; -ISOVUE-M 300 61% 15ML VIAL ONE; -LIDOCAINE 1% SDV 30ML VIAL ONE; -MIDAZOLAM INJ 2MG/2ML VIAL (J2250 PER 1MG) ONE; -NORC1TAB7 PO; -TRIAMCINOLONE ACETONIDE SUSP 40 MG/ML VIAL (J3301) ONE; -fentaNYL 100 MCG/2 ML INJECTION (J3010) ONE
[2020-01-08] MEDS ORDERED: ONDANSETRON 4MG/2ML VIAL IV ONE (10:15)
[2020-01-08] MEDS ORDERED: LIDOCAINE 2% MDV 20ML VIAL SC ONE (10:15)
[2020-01-08] MEDS ORDERED: BOOSTRIX/ADACEL VACCINE (DIPHTH/PERTUSS/ACELL/TETANUS) 0.5ML SYR IM ONE (10:15)
[2020-01-08] MEDS ORDERED: MORPHINE 4 MG/ML 1ML VIAL/SYRINGE (J2270) IV ONE ×2 (10:15→12:30)
[2020-01-08] MEDS ORDERED: NS 1,000 ML IV ONE (10:15)
[2020-01-08 10:39] LABS: BASO # 0.1 10^3/uL (0.0-0.2); BASO % 1.5 % (0.0-1.0); EOS # 0.2 10^3/uL (0.0-0.5); EOS % 3.1 % (0.0-3.0); HEMOGLOBIN 15.2 g/dl (12.0-15.5); LYMPH # 2.1 10^3/uL (1.5-5.0); LYMPH % 34.3 % (24.0-44.0); MEAN CORPUSCULAR HEMOGLOBIN 31.3 pg (27.0-33.0); MEAN CORPUSCULAR VOLUME 94.8 fl (80.0-96.0); MONO # 0.5 10^3/uL (0.0-0.8); MONO % 7.4 % (0.0-5.0); NEUTROPHILS # 3.2 10^3/uL (1.5-8.5); NEUTROPHILS % 53.4 % (36.0-66.0); PLATELET COUNT, AUTOMATED 307 10^3/uL (150-450); RED BLOOD COUNT 4.85 10^6/uL (4.00-5.40); WHITE BLOOD COUNT 6.1 10^3/uL (4.0-10.0)
[2020-01-08 11:07] LABS: ALBUMIN 3.9 GM/DL (3.2-5.2); ALT/SGPT 27 U/L (12-78); BILIRUBIN,DIRECT < 0.1 MG/DL (0.0-0.2); BILIRUBIN,TOTAL 0.3 MG/DL (0.2-1.0); BLOOD UREA NITROGEN 13 MG/DL (7-18); CARBON DIOXIDE LEVEL 27 MEQ/L (21-32); CHLORIDE LEVEL 106 MEQ/L (98-107); CREATININE FOR GFR 0.84 MG/DL (0.55-1.30); GLOMERULAR FILTRATION RATE > 60.0 (>51); GLUCOSE, FASTING 114 MG/DL (70-100); POTASSIUM SERUM 3.9 MEQ/L (3.5-5.1); SODIUM LEVEL 139 MEQ/L (136-145); TOTAL PROTEIN 7.7 GM/DL (6.4-8.2)
[2020-01-08 13:12] VITALS: BP 116/70
[2020-01-08] MEDS ORDERED: DOXY100C37 PO (13:15)
[2020-01-08] MEDS ORDERED: NORC1TAB7 PO (13:17)
--- NOTE | 2020-01-09 15:20 | ER ---
DATE OF CONSULTATION: 01/08/2020 CONSULT REQUESTED BY: Pete Lr M.D. CHIEF COMPLAINT: Left hand injury. HISTORY OF PRESENT ILLNESS: Earlier this morning, Muriel was using a table saw when she got her left hand caught in the blade. She presented to the ER with traumatic laceration to the thenar eminence and the fifth MCP joint. Orthopedics was consulted. Patient denies any numbness, but does report she has bilateral carpal tunnel, so she does experience paresthesias in the left hand, but is reporting intact sensation today. HEALTH SURVEY/PAST MEDICAL HISTORY: Reviewed. Pertinent positives and negatives were noted. PHYSICAL EXAMINATION: Reveals a well developed, well-nourished elderly female, in no acute distress, who is alert and oriented x3. Normocephalic, atraumatic. Lungs are clear to auscultation without rales or wheeze. Heart regular rate and rhythm. Abdomen; bowel sounds were present. Extremities; inspection of the left hand reveals a large traumatic laceration to the thenar eminence. Additionally, a smaller traumatic laceration to the ulnar aspect of the fifth MCP joint. She is reporting intact sensation to touch through the fingers. Brisk capillary refill is appreciated. Range of motion through the fifth digit was maintained. She is unable to perform any flexion or abduction with the left thumb. IMAGING STUDIES: X-rays were reviewed, showing no acute fractures, dislocations or bony lesions seen, obvious soft tissue trauma. IMPRESSION: Traumatic laceration to the left thenar eminence with loss of flexion and abduction of the left thumb, also laceration to the fifth MCP joint on the left. PLAN: The plan will be to consult [facility]. Will receive guidance from them as to how to dress the wound prior to the patient arriving at [facility]. In the meantime until we know when she is able to go, she will remain n.p.o. She has not had anything to eat or drink since midnight last night. For further details, please see the medical record. MUKUL
--- NOTE | 2020-01-15 08:47 | REP ---
LEFT HAND SERIES: 4-VIEWS (REPEAT DICTATION) HISTORY: Trauma. Preliminary report is provided at the time of exam by JADE. History of lacerations. FINDINGS: Four views of the left hand demonstrate soft tissue deficits representing lacerations along the ulnar aspect of the fifth metacarpophalangeal (MCP) joint and over the thenar soft tissues. No fracture or opaque foreign body is seen. IMPRESSION: Large lacerations. No fracture is seen. No evidence of opaque foreign body. VANESSAD
== END 2020-01-08 13:32 | disposition home or self-care (01) ==
LOC: M ED 09:25
DX: S61.412A Laceration without foreign body of left hand, initial encounter (principal); S61.012A Laceration without foreign body of left thumb without damage to nail, initial encounter; S66.902A Unspecified injury of unspecified muscle, fascia and tendon at wrist and hand level, left hand, initial encounter; X58.XXXA Exposure to other specified factors, initial encounter; Y92.099 Unspecified place in other non-institutional residence as the place of occurrence of the external cause; Y93.9 Activity, unspecified; Y99.9 Unspecified external cause status; Z79.899 Other long term (current) drug therapy; Z88.0 Allergy status to penicillin; Z88.2 Allergy status to sulfonamides; Z88.8 Allergy status to other drugs, medicaments and biological substances
CPT/HCPCS: 12002; 73130; 80048; 80076; 85025; 86850; 86900; 86901; 90471; 90715; 96361; 96374; 96375; 96376; 99284; J2270; J2405; U0002

== ENCOUNTER → 2020-01-23 | Outpatient (CLI) | payer OTHER, MEDICARE ==
[~2020-01-23] MED LIST changes: +DOXY100C37 PO; +NORC1TAB7 PO
--- NOTE | 2020-01-24 18:42 | ECWPNPC ---
PATIENT NAME: LEVI MARTE : 1965 GENDER: FEMALE VISIT DATE: 01/23/2020 DISCHARGE DATE: 01/23/20 1454 VISIT LOCKED DATE TIME: PHYSICIAN: AIDA THOMPSON RESOURCE: AIDA THOMPSON REASON FOR APPOINTMENT 1. W/C HISTORY OF PRESENT ILLNESS GENERAL: -. FALL RISK SCREENING: SCREENING :NO FALLS REPORTED IN THE LAST YEAR PAIN SCREENING: PATIENT HAS A COMPLAINT OF ACUTE OR CHRONIC PAIN :YES LOCATION OF PAIN:OTHER: RIGHT ARM INTENSITY OF PAIN (SCALE OF 1 TO 10):5 WHAT DOES YOUR PAIN FEEL LIKE:ACHING, CONTINOUS, THROBBING, SHOOTING DURATION:CONTINOUS, CONSTANT, STEADY PAIN IS INCREASED BY:ACTIVITIES PAIN IS DECREASED BY:USE OF PAIN MEDICATIONS, OTHERS INJECTIONS, LIDOCAINE PATCHES NURSING NOTE: -. PAIN CENTER INTAKE QUESTIONS: DO YOU HAVE A HISTORY OF MRSA? :NO DO YOU TAKE A BLOOD THINNERS? :NO DO YOU HAVE ANY BLEEDING DISORDERS? :NO ANY NEW NUMBNESS OR WEAKNESS IN YOUR LEGS OR ARMS? :NO ANY PACEMAKER,DEFIBRILLATOR, OR DORSAL COLUMN STIMULATOR? :NO DO YOU HAVE ANY RASHES OR OPEN SORES? :YES CUT TO LEFT HAND FROM TABLE SAW. ARE YOU ALLERGIC TO IV DYE? :NO ARE YOU DIABETIC? :NO ANY NEW PROBLEMS WITH YOUR MEDICATIONS? :NO HAVE YOU RECEIVED A VACCINE IN THE PAST 30 DAYS? :NO DO YOU PLAN TO RECEIVE A VACCINE IN THE NEXT 21 DAYS? :NO DO YOU NEED ANY PRESCRIPTION? :NO DO YOU TAKE ANY IMMUNOSUPPRESSIVE MEDICATIONS? :NO IS THERE A CHANCE YOU COULD BE ? :NO ARE YOU BREAST FEEDING? :NO CURRENT MEDICATIONS TAKING DULOXETINE HCL 30 MG CAPSULE DELAYED RELEASE PARTICLES 1 CAPSULE ORALLY TWICE A DAY TAKING GABAPENTIN 400 MG TABLET 1 TABLET ORALLY BID TAKING AMITRIPTYLINE HCL 30 MG TABLET 1 TABLET AT BEDTIME ORALLY ONCE A DAY TAKING OXYCODONE-ACETAMINOPHEN 5-325 MG TABLET 1 TABLET NEEDED ORALLY EVERY 4 HOURS NEEDED TAKING LIDOCAINE & ADHESIVE SHEET 5 % KIT 1 PATCH EXTERNALLY DAILY NEEDED ON 12 HOURS OFF 12 HOURS TAKING PANTOPRAZOLE SODIUM 20 MG TABLET DELAYED RELEASE 1 TABLET ORALLY ONCE A DAY TAKING CREON 34540 UNIT CAPSULE DELAYED RELEASE PARTICLES 2 TABS ORALLY WITH MEALS TAKING NEXIUM 20 MG CAPSULE DELAYED RELEASE 1 CAPSULE ORALLY ONCE A DAY TAKING SIMVASTATIN 10 MG TABLET 1 TABLET IN THE EVENING ORALLY ONCE A DAY NOT-TAKING DICYCLOMINE HCL 10 MG CAPSULE 2 CAPSULES ORALLY THREE TIMES A DAY NOT-TAKING OMEPRAZOLE 10 MG CAPSULE DELAYED RELEASE 1 CAPSULE ORALLY ONCE A DAY MEDICATION LIST REVIEWED AND RECONCILED WITH THE PATIENT PAST MEDICAL HISTORY KIDNEY STONES CTS, BILATERAL FIBROMYALGIA OSTEOARTHRITIS SCOLIOSIS A CHILD HIGH CHOLESTEROL FATTY LIVER DIVERTICULITIS CRPS RIGHT ARM PAIN LEFT WRIST/HAND POSSIBLE IBS EPI (EXOCRINE PANCREATIC INSUFFICIENCY) TC SCORE 11.18 5 OIL CYSTS OF THE BREASTS ALLERGIES PSEUDOEPHEDRINE HCL: HIVES - ALLERGY SULFA (FOR ALLERGY USE ONLY): HIVES - ALLERGY SURGICAL HISTORY CHOLECYSTECTOMY 2008 CTR, RIGHT 2012 TUBAL LIGATION 2007 LITHOTRIPSY 2004 REMOVAL LIPOMA LEFT ABDOMEN 2014 COLONOSCOPY 2 POLYPS ADENOMATOUS DUE 05/2021 LEFT HAND REPAIR S/P TABLE SAW INJURY 01/2020 FAMILY HISTORY FATHER: ALIVE 78 YRS, ARTHRITIS, CANCER GALL BLADDER, HYPERTENSION MOTHER: ALIVE 77 YRS, FIBROMYALGIA, ALZHEIMER'S SIBLINGS: ALIVE, 1 BROTHER TESTICULAR CANCER, 1 BROTHER METASTATIC COLON CANCER (), 1 BROTHER HEALTHY MATERNAL GRAND MOTHER: BREAST CANCER MATERNAL AUNT: 2 BREAST CANCER IN 40-50 ONE WITH OVARUAN CANCER IN 40'S 3 BROTHER(S) . 3 SON(S) , 1 DAUGHTER(S) . YOUNGEST SON-PKU, ASTHMA, EXCEMA 2 MATERNAL COUSIND BREAST CANCER 40'S. SOCIAL HISTORY GENERAL: TOBACCO USE ARE YOU A:NONSMOKER NEVER SMOKER LATEX QUESTIONNAIRE LATEX ALLERGY : HAVE YOU EVER DEVELOPED ANY TYPE OF REACTION AFTER HANDLING LATEX PRODUCTS SUCH RUBBER GLOVES, CONDOMS, DIAPHRAGMS, BALLOONS, SOCKS, OR UNDERWEAR?NO LATEX ALLERGY : HAVE YOU EVER DEVELOPED ANY TYPE OF REACTION DURING OR AFTER DENTAL APPOINTMENT, VAGINAL/RECTAL EXAMINATION, SURGICAL PROCEDURE, OR ANY OTHER EXPOSURE?NO LATEX RISK : HAVE YOU EVER HAD ANY DIFFICULTY BREATHING OR HIVES AFTER EATING OR HANDLING ANY FRUITS, OR VEGETABLES; SUCH KIWI, BANANAS, STONE FRUITS, OR CHESTNUTSNO LATEX RISK : DO YOU HAVE A PREVIOUS PERSONAL HISTORY OF MORE THAN NINE SURGERIES, SPINA BIFIDA, OR REPEATED CATHERIZATIONS? NO LATEX RISK : ARE YOU FREQUENTLY EXPOSED TO LATEX PRODUCTS IN YOUR OCCUPATION?NO DATE ASKED : 01/23/2020 BMI CARE GOAL FOLLOW-UP ABOVE NORMAL BMI FOLLOW-UPGIVING ENCOURAGEMENT TO EXERCISE ALCOHOL SCREENING DID YOU HAVE A DRINK CONTAINING ALCOHOL IN THE PAST YEAR?NO POINTS0 INTERPRETATIONNEGATIVE RECREATIONAL DRUG USE DRUG USE?NO CAFFEINE CAFFEINE USE?YES 1 CUP COFFEE DAILY HIV / HEP-C SCREENING HIV TEST OFFERED TO PATIENT:YES DATE OFFERED:06/04/2019 TEST ACCEPTED:YES HEP-C TEST OFFERED TO PATIENT:NO BROCHURE PROVIDED TO PATIENTYES RELIGIOUS [id number] OTHER LANGUAGE LANGUAGES SPOKEN:GREEK EDUCATION LEVEL OF EDUCATION:HIGH SCHOOL LEARNING BARRIERS / SPECIAL NEEDS CHANGE FROM LAST VISIT?NO BARRIERS TO LEARNING?NO HEARING IMPAIRED?YES : SOME HEARING LOSS RIGHT EAR VISION IMPAIRED?YES :CORRECTIVE LENSES READING GLASSES COGNITIVELY IMPAIRED?NO READINESS TO LEARN?YES LEARNING PREFERENCES?YES :DEMONSTRATION/VERBAL INSTRUCTION LEARNING CAPABILITIES PRESENT?YES EMOTIONAL BARRIERS?NO SPECIAL DEVICES?NO PUBLIC SERVICES ASSISTANT NEEDED?NO DOMESTIC VIOLENCE DO YOU FEEL SAFE IN YOUR ENVIRONMENT?YES OCCUPATION: DISABLED. DIET: REGULAR. EXERCISE: NO REGULAR EXERCISE. MARITAL STATUS: .. OTHERS AT HOME: CHILD, OTHER RELATIVE. PAIN CLINIC PFS, CLERGY, PUBLIC HEALTH REFERRALS PFS REFERRAL NEEDED?NO CLERGY REFERRAL NEEDED?NO PUBLIC HEALTH REFERRAL NEEDED?NO WAS THE PROVIDER NOTIFIED OF ANY PERTINENT INFO?YES N/A HAS THE PATIENT BEEN EDUCATED REGARDING HIS/HER PLAN OF CARE?YES HAS THE PATIENT BEEN EDUCATED REGARDING PAIN, THE RISK FOR PAIN, THE IMPORTANCE OF EFFECTIVE PAIN MANAGEMENT, AND THE PAIN ASSESSMENT PROCESS?YES ADVANCE DIRECTIVE ADVANCE DIRECTIVE DISCUSSED WITH PATIENT:YES PT DOES NOT HAVE ANY ADVANCED DIRECTIVES AND SHE DECLINES INFORMATION ON HCP AT THIS TIME. HOSPITALIZATION/MAJOR DIAGNOSTIC PROCEDURE SURGICALLY RELATED CONCUSSION TEENAGER VITAL SIGNS WT 186.0 LBS, HT 63 IN, BMI 32.94 INDEX, BP 119/77 MM HG, HR 107 /MIN, RR 18 /MIN, TEMP 98.7 F, OXYGEN SAT % 95%, SAFE IN ENV? (Y/N) YES, NA INITIALS AW 1418, REVIEWED BY: SOHAIL. EXAMINATION GENERAL EXAMINATION: LUNGS:LUNG SOUNDS ARE CLEAR. HEART:HEART RATE REGULAR. ASSESSMENTS OTHER CHRONIC PAIN - G89.29 (PRIMARY) TREATMENT OTHER CHRONIC PAIN PAIN PROCEDURE LOGDATE OF PROCEDURE11/22/2019PROCEDURE:RIGHT STELLATE GANGLIONAMOUNT OF PRE SEDATEVERSED 1 MG & FENTANYL 50 MCGRESULT:CONTINUES TO BENEFIT FROM PROCEDURE TODAY PROCEDURE CODES FA211 ESTABILISHED PATIENT [facility] FACILITY CHARGE DISPOSITION & COMMUNICATION FOLLOW UP 3 MONTHS (REASON: W/C RIGHT ARM PAIN) ELECTRONICALLY SIGNED BY KIM VEE ON 01/24/2020 AT 02:02 PM EDT DISCLAIMER : THIS IS A VISIT SUMMARY EXTRACTED FROM THE [employer] CHART. IT IS NOT A COPY OF THE [employer] PROGRESS NOTE. MUKUL
== END ==
LOC: M PAIN 14:00
PROVIDERS: ATTEND Nurse Practitioner Family
DX: G89.29 Other chronic pain (principal); M79.7 Fibromyalgia; E78.00 Pure hypercholesterolemia, unspecified; K76.0 Fatty (change of) liver, not elsewhere classified; Z79.891 Long term (current) use of opiate analgesic; Z79.899 Other long term (current) drug therapy; Z88.2 Allergy status to sulfonamides; Z88.8 Allergy status to other drugs, medicaments and biological substances

== ENCOUNTER → 2020-03-05 | Outpatient (CLI) | payer OTHER, MEDICARE ==
--- NOTE | 2020-03-05 23:04 | ECWPNPC ---
PATIENT NAME: LEVI MARTE : 1965 GENDER: FEMALE VISIT DATE: 03/05/2020 DISCHARGE DATE: 03/05/20 0000 VISIT LOCKED DATE TIME: PHYSICIAN: AIDA THOMPSON RESOURCE: AIDA THOMPSON REASON FOR APPOINTMENT 1. 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 THIS IS A WORK RELATED INJURY. PAIN HAS INCREASED OVER THE PAST MONTH. RATING PAIN LEVEL A 10 OVER 10 VAS. PAIN IS CONSTANT AND ACHING. HAS BENEFITED FROM STELLATE GANGLION BLOCK WITH IV SEDATION IN THE PAST. THIS HAS GIVEN HER SEVERAL MONTHS OF PAIN CONTROL. FALL RISK SCREENING: SCREENING :NO FALLS REPORTED IN THE LAST YEAR PAIN SCREENING: PATIENT HAS A COMPLAINT OF ACUTE OR CHRONIC PAIN :YES LOCATION OF PAIN:OTHER: RIGHT ARM INTENSITY OF PAIN (SCALE OF 1 TO 10):10 WHAT DOES YOUR PAIN FEEL LIKE:ACHING, CONTINOUS, THROBBING, SHOOTING DURATION:CONTINOUS, CONSTANT, STEADY PAIN IS INCREASED BY:ACTIVITIES PAIN IS DECREASED BY:USE OF PAIN MEDICATIONS, OTHERS INJECTIONS, LIDOCAINE PATCHES NURSING NOTE: -. PAIN CENTER INTAKE QUESTIONS: DO YOU HAVE A HISTORY OF MRSA? :NO DO YOU TAKE A BLOOD THINNERS? :NO DO YOU HAVE ANY BLEEDING DISORDERS? :NO ANY NEW NUMBNESS OR WEAKNESS IN YOUR LEGS OR ARMS? :NO ANY PACEMAKER,DEFIBRILLATOR, OR DORSAL COLUMN STIMULATOR? :NO DO YOU HAVE ANY RASHES OR OPEN SORES? :NO ARE YOU ALLERGIC TO IV DYE? :NO ARE YOU DIABETIC? :NO ANY NEW PROBLEMS WITH YOUR MEDICATIONS? :NO HAVE YOU RECEIVED A VACCINE IN THE PAST 30 DAYS? :NO DO YOU PLAN TO RECEIVE A VACCINE IN THE NEXT 21 DAYS? :NO DO YOU NEED ANY PRESCRIPTION? :NO DO YOU TAKE ANY IMMUNOSUPPRESSIVE MEDICATIONS? :NO IS THERE A CHANCE YOU COULD BE ? :NO ARE YOU BREAST FEEDING? :NO CURRENT MEDICATIONS TAKING DULOXETINE HCL 30 MG CAPSULE DELAYED RELEASE PARTICLES 1 CAPSULE ORALLY TWICE A DAY TAKING GABAPENTIN 400 MG TABLET 1 TABLET ORALLY BID TAKING AMITRIPTYLINE HCL 30 MG TABLET 1 TABLET AT BEDTIME ORALLY ONCE A DAY TAKING OXYCODONE-ACETAMINOPHEN 5-325 MG TABLET 1 TABLET NEEDED ORALLY EVERY 4 HOURS NEEDED TAKING LIDOCAINE & ADHESIVE SHEET 5 % KIT 1 PATCH EXTERNALLY DAILY NEEDED ON 12 HOURS OFF 12 HOURS TAKING PANTOPRAZOLE SODIUM 20 MG TABLET DELAYED RELEASE 1 TABLET ORALLY ONCE A DAY TAKING CREON 11114 UNIT CAPSULE DELAYED RELEASE PARTICLES 2 TABS ORALLY WITH MEALS TAKING NEXIUM 20 MG CAPSULE DELAYED RELEASE 1 CAPSULE ORALLY ONCE A DAY TAKING ATORVASTATIN CALCIUM 20 MG TABLET 1 TABLET ORALLY ONCE A DAY NOT-TAKING SIMVASTATIN 10 MG TABLET 1 TABLET IN THE EVENING ORALLY ONCE A DAY NOT-TAKING DICYCLOMINE HCL 10 MG CAPSULE 2 CAPSULES ORALLY THREE TIMES A DAY NOT-TAKING OMEPRAZOLE 10 MG CAPSULE DELAYED RELEASE 1 CAPSULE ORALLY ONCE A DAY MEDICATION LIST REVIEWED AND RECONCILED WITH THE PATIENT PAST MEDICAL HISTORY KIDNEY STONES CTS, BILATERAL FIBROMYALGIA OSTEOARTHRITIS SCOLIOSIS A CHILD HIGH CHOLESTEROL FATTY LIVER DIVERTICULITIS CRPS RIGHT ARM PAIN LEFT WRIST/HAND POSSIBLE IBS EPI (EXOCRINE PANCREATIC INSUFFICIENCY) TC SCORE 11.18 5 OIL CYSTS OF THE BREASTS ALLERGIES PSEUDOEPHEDRINE HCL: HIVES - ALLERGY SULFA (FOR ALLERGY USE ONLY): HIVES - ALLERGY SURGICAL HISTORY CHOLECYSTECTOMY 2007 CTR, RIGHT 2012 TUBAL LIGATION 2007 LITHOTRIPSY 2004 REMOVAL LIPOMA LEFT ABDOMEN 2014 COLONOSCOPY 2 POLYPS ADENOMATOUS DUE 05/2021 LEFT HAND REPAIR S/P TABLE SAW INJURY 01/2020 FAMILY HISTORY FATHER: ALIVE 78 YRS, ARTHRITIS, CANCER GALL BLADDER, HYPERTENSION MOTHER: ALIVE 77 YRS, FIBROMYALGIA, ALZHEIMER'S SIBLINGS: ALIVE, 1 BROTHER TESTICULAR CANCER, 1 BROTHER METASTATIC COLON CANCER (), 1 BROTHER HEALTHY MATERNAL GRAND MOTHER: BREAST CANCER MATERNAL AUNT: 2 BREAST CANCER IN 40-50 ONE WITH OVARUAN CANCER IN 40'S 3 BROTHER(S) . 3 SON(S) , 1 DAUGHTER(S) . YOUNGEST SON-PKU, ASTHMA, EXCEMA 2 MATERNAL COUSIND BREAST CANCER 40'S. SOCIAL HISTORY GENERAL: TOBACCO USE ARE YOU A:NONSMOKER NEVER SMOKER LATEX QUESTIONNAIRE LATEX ALLERGY : HAVE YOU EVER DEVELOPED ANY TYPE OF REACTION AFTER HANDLING LATEX PRODUCTS SUCH RUBBER GLOVES, CONDOMS, DIAPHRAGMS, BALLOONS, SOCKS, OR UNDERWEAR?NO LATEX ALLERGY : HAVE YOU EVER DEVELOPED ANY TYPE OF REACTION DURING OR AFTER DENTAL APPOINTMENT, VAGINAL/RECTAL EXAMINATION, SURGICAL PROCEDURE, OR ANY OTHER EXPOSURE?NO LATEX RISK : HAVE YOU EVER HAD ANY DIFFICULTY BREATHING OR HIVES AFTER EATING OR HANDLING ANY FRUITS, OR VEGETABLES; SUCH KIWI, BANANAS, STONE FRUITS, OR CHESTNUTSNO LATEX RISK : DO YOU HAVE A PREVIOUS PERSONAL HISTORY OF MORE THAN NINE SURGERIES, SPINA BIFIDA, OR REPEATED CATHERIZATIONS? NO LATEX RISK : ARE YOU FREQUENTLY EXPOSED TO LATEX PRODUCTS IN YOUR OCCUPATION?NO DATE ASKED : 01/23/2020 BMI CARE GOAL FOLLOW-UP ABOVE NORMAL BMI FOLLOW-UPGIVING ENCOURAGEMENT TO EXERCISE ALCOHOL SCREENING DID YOU HAVE A DRINK CONTAINING ALCOHOL IN THE PAST YEAR?NO POINTS0 INTERPRETATIONNEGATIVE RECREATIONAL DRUG USE DRUG USE?NO CAFFEINE CAFFEINE USE?YES 1 CUP COFFEE DAILY HIV / HEP-C SCREENING HIV TEST OFFERED TO PATIENT:YES DATE OFFERED:06/04/2019 TEST ACCEPTED:YES HEP-C TEST OFFERED TO PATIENT:NO BROCHURE PROVIDED TO PATIENTYES [id number] OTHER LANGUAGE LANGUAGES SPOKEN:MALTESE EDUCATION LEVEL OF EDUCATION:HIGH SCHOOL LEARNING BARRIERS / SPECIAL NEEDS CHANGE FROM LAST VISIT?NO BARRIERS TO LEARNING?NO HEARING IMPAIRED?YES : SOME HEARING LOSS RIGHT EAR VISION IMPAIRED?YES :CORRECTIVE LENSES READING GLASSES COGNITIVELY IMPAIRED?NO READINESS TO LEARN?YES LEARNING PREFERENCES?YES :DEMONSTRATION/VERBAL INSTRUCTION LEARNING CAPABILITIES PRESENT?YES EMOTIONAL BARRIERS?NO SPECIAL DEVICES?NO REPTILE FARMER NEEDED?NO DOMESTIC VIOLENCE DO YOU FEEL SAFE IN YOUR ENVIRONMENT?YES OCCUPATION: DISABLED. DIET: REGULAR. EXERCISE: NO REGULAR EXERCISE. MARITAL STATUS: .. OTHERS AT HOME: CHILD, OTHER RELATIVE. PAIN CLINIC PFS, CLERGY, PUBLIC HEALTH REFERRALS PFS REFERRAL NEEDED?NO CLERGY REFERRAL NEEDED?NO PUBLIC HEALTH REFERRAL NEEDED?NO WAS THE PROVIDER NOTIFIED OF ANY PERTINENT INFO?YES N/A HAS THE PATIENT BEEN EDUCATED REGARDING HIS/HER PLAN OF CARE?YES HAS THE PATIENT BEEN EDUCATED REGARDING PAIN, THE RISK FOR PAIN, THE IMPORTANCE OF EFFECTIVE PAIN MANAGEMENT, AND THE PAIN ASSESSMENT PROCESS?YES ADVANCE DIRECTIVE ADVANCE DIRECTIVE DISCUSSED WITH PATIENT:YES PT DOES NOT HAVE ANY ADVANCED DIRECTIVES AND SHE DECLINES INFORMATION ON HCP AT THIS TIME. HOSPITALIZATION/MAJOR DIAGNOSTIC PROCEDURE SURGICALLY RELATED CONCUSSION TEENAGER REVIEW OF SYSTEMS CONSTITUTIONAL: ANY RECENT FEVER NO . CHILLS NO . WEIGHT CHANGE OF UNKNOWN REASONS NO . GASTROENTEROLOGY: NEW UNEXPLAINABLE CHANGES IN BOWEL CONTROL NO . CONSTIPATION NO . GENITOURINARY: ANY NEW CHANGE IN BLADDER CONTROL? NO . NEUROLOGY: NEW ONSET DIZZINESS OR NEUROLOGICAL CHANGES NOT MENTIONED NO . NEW NUMBNESS OR PAIN PATTERNS NOT MENTIONED AND PERTINENT TO TODAY'S VISIT NO . CARDIOLOGY: NEW CHEST PRESSURE NO . NEW CHEST PAIN NO . RESPIRATORY: UNEXPLAINABLE COUGH NO . NEW SHORTNESS OF BREATH NO . VITAL SIGNS WT 186.0 LBS, HT 63 IN, BMI 32.94 INDEX, BP 121/76 MM HG, HR 119 /MIN, RR 18 /MIN, TEMP 96.2 F, OXYGEN SAT % 98%, SAFE IN ENV? (Y/N) Y, NA INITIALS AW 0947, REVIEWED BY: JSJ. LEE ANN RN. EXAMINATION GENERAL EXAMINATION: LUNGS:LUNG SOUNDS ARE CLEAR. HEART:HEART RATE REGULAR. MUSCULOSKELETAL:*. NEUROLOGICAL: SENSORY:ABNORMAL -HYPERSENSITIVE TO LIGHT TOUCH RIGHT ARM AND HAND.DECREASED MUSCLE STRENGTH AND WARBLE SAW OPERATOR STRENGTH RIGHT ARM AND HAND.. ASSESSMENTS NEURALGIA OF RIGHT UPPER EXTREMITY - M79.2 (PRIMARY) TREATMENT NEURALGIA OF RIGHT UPPER EXTREMITY NOTES: WORKMEN'S COMP REQUEST RIGHT STELLATE GANGLION BLOCK WITH IV SEDATION REVIEWED INFORMATION ON STELLATE GANGLION PROCEDURE WITH PATIENT. ALSO REVIEWED PRE-PROCEDURE INSTRUCTIONS. PATIENT VERBALIZED AN UNDERSTANDING. Margarita NANCE RN. PROCEDURE CODES FA211 ESTABILISHED PATIENT [facility] FACILITY CHARGE DISPOSITION & COMMUNICATION FOLLOW UP POST PROCEDURE (REASON: WORKMEN'S COMP REQUEST RIGHT STELLATE GANGLION BLOCK WITH IV SEDATION) ELECTRONICALLY SIGNED BY KIM VEE ON 03/05/2020 AT 01:15 PM EST DISCLAIMER : THIS IS A VISIT SUMMARY EXTRACTED FROM THE [employer] CHART. IT IS NOT A COPY OF THE [employer] PROGRESS NOTE. MUKUL
== END ==
LOC: M PAIN 09:45
PROVIDERS: ATTEND Nurse Practitioner Family
DX: M79.2 Neuralgia and neuritis, unspecified (principal); M79.7 Fibromyalgia; Z87.442 Personal history of urinary calculi; Z88.2 Allergy status to sulfonamides; Z88.8 Allergy status to other drugs, medicaments and biological substances; Z79.899 Other long term (current) drug therapy

== ENCOUNTER → 2020-04-11 | Outpatient (CLI) | payer OTHER, MEDICARE ==
--- NOTE | 2020-04-12 01:55 | ECWPNPC ---
PATIENT NAME: LEVI MARTE : 1965 GENDER: FEMALE VISIT DATE: 04/11/2020 DISCHARGE DATE: 04/11/20 1111 VISIT LOCKED DATE TIME: PHYSICIAN: CRICKET TOVAR MD RESOURCE: CRICKET TOVAR MD REASON FOR APPOINTMENT 1. PRE SEDATE FOR RIGHT STELLATE GANGLION BLOCK WITH IV SEDATION HISTORY OF PRESENT ILLNESS GENERAL: 54-YEAR-OLD FEMALE PATIENT WITH A HISTORY OF CHRONIC RIGHT ARM PAIN. THE PATIENT DESCRIBES THE PAIN SEVERE, CONSTANT AND TENDER WITH A PAIN SCORE RANGING FROM 8-10/10 OVER THE RIGHT ARM. SHE IS SUFFERING FROM NEURALGIA AFTER A WORK RELATED INJURY. SHE HAS HAD STELLATE GANGLION BLOCK IN THE PAST WITH MONTHS OF PAIN RELIEF. THE PAIN IS STARTING TO COME BACK. FALL RISK SCREENING: SCREENING :NO FALLS REPORTED IN THE LAST YEAR PAIN SCREENING: PATIENT HAS A COMPLAINT OF ACUTE OR CHRONIC PAIN :YES LOCATION OF PAIN:OTHER: RIGHT ARM, LEFT HAND/WRIST INTENSITY OF PAIN (SCALE OF 1 TO 10):10 WHAT DOES YOUR PAIN FEEL LIKE:ACHING, CONTINOUS, TENDER, THROBBING, SHOOTING DURATION:CONTINOUS, CONSTANT, STEADY, AWAKENS FROM SLEEP PAIN IS INCREASED BY:ACTIVITIES PAIN IS DECREASED BY:USE OF PAIN MEDICATIONS, OTHERS INJECTIONS, LIDOCAINE PATCHES TREATMENT/MEDICATIONS USED TO MANAGE PAIN:OTC PAIN RELIEVERS, NSAIDS, TOPICAL CORTICOSTEROIDS, OPIOIDS, PHYSICAL THERAPY PLAN/GOALS/TREATMENT/INTERVENTION/FOLLOW UP:SEE PLAN PAIN CENTER INTAKE QUESTIONS: DO YOU HAVE A HISTORY OF MRSA? :NO DO YOU TAKE A BLOOD THINNERS? :NO DO YOU HAVE ANY BLEEDING DISORDERS? :NO ANY NEW NUMBNESS OR WEAKNESS IN YOUR LEGS OR ARMS? :NO ANY PACEMAKER,DEFIBRILLATOR, OR DORSAL COLUMN STIMULATOR? :NO DO YOU HAVE ANY RASHES OR OPEN SORES? :NO ARE YOU ALLERGIC TO IV DYE? :NO ARE YOU DIABETIC? :NO ANY NEW PROBLEMS WITH YOUR MEDICATIONS? :NO HAVE YOU RECEIVED A VACCINE IN THE PAST 30 DAYS? :NO DO YOU PLAN TO RECEIVE A VACCINE IN THE NEXT 21 DAYS? :NO DO YOU NEED ANY PRESCRIPTION? :NO DO YOU TAKE ANY IMMUNOSUPPRESSIVE MEDICATIONS? :NO IS THERE A CHANCE YOU COULD BE ? :NO ARE YOU BREAST FEEDING? :NO CURRENT MEDICATIONS TAKING DULOXETINE HCL 30 MG CAPSULE DELAYED RELEASE PARTICLES 1 CAPSULE ORALLY TWICE A DAY TAKING GABAPENTIN 400 MG TABLET 1 TABLET ORALLY BID TAKING AMITRIPTYLINE HCL 30 MG TABLET 1 TABLET AT BEDTIME ORALLY ONCE A DAY TAKING OXYCODONE-ACETAMINOPHEN 5-325 MG TABLET 1 TABLET NEEDED ORALLY EVERY 4 HOURS NEEDED TAKING LIDOCAINE & ADHESIVE SHEET 5 % KIT 1 PATCH EXTERNALLY DAILY NEEDED ON 12 HOURS OFF 12 HOURS TAKING PANTOPRAZOLE SODIUM 20 MG TABLET DELAYED RELEASE 1 TABLET ORALLY ONCE A DAY TAKING CREON 99759 UNIT CAPSULE DELAYED RELEASE PARTICLES 2 TABS ORALLY WITH MEALS TAKING NEXIUM 20 MG CAPSULE DELAYED RELEASE 1 CAPSULE ORALLY ONCE A DAY TAKING ATORVASTATIN CALCIUM 20 MG TABLET 1 TABLET ORALLY ONCE A DAY NOT-TAKING SIMVASTATIN 10 MG TABLET 1 TABLET IN THE EVENING ORALLY ONCE A DAY NOT-TAKING DICYCLOMINE HCL 10 MG CAPSULE 2 CAPSULES ORALLY THREE TIMES A DAY NOT-TAKING OMEPRAZOLE 10 MG CAPSULE DELAYED RELEASE 1 CAPSULE ORALLY ONCE A DAY MEDICATION LIST REVIEWED AND RECONCILED WITH THE PATIENT PAST MEDICAL HISTORY KIDNEY STONES CTS, BILATERAL FIBROMYALGIA OSTEOARTHRITIS SCOLIOSIS A CHILD HIGH CHOLESTEROL FATTY LIVER DIVERTICULITIS CRPS RIGHT ARM PAIN LEFT WRIST/HAND POSSIBLE IBS EPI (EXOCRINE PANCREATIC INSUFFICIENCY) TC SCORE 11.18 5 OIL CYSTS OF THE BREASTS ALLERGIES PSEUDOEPHEDRINE HCL: HIVES - ALLERGY SULFA (FOR ALLERGY USE ONLY): HIVES - ALLERGY SURGICAL HISTORY CHOLECYSTECTOMY 2008 CTR, RIGHT 2012 TUBAL LIGATION 2008 LITHOTRIPSY 2004 REMOVAL LIPOMA LEFT ABDOMEN 2014 COLONOSCOPY 2 POLYPS ADENOMATOUS DUE 05/2021 LEFT HAND REPAIR S/P TABLE SAW INJURY 01/2020 FAMILY HISTORY FATHER: ALIVE 79 YRS, ARTHRITIS, CANCER GALL BLADDER, HYPERTENSION MOTHER: ALIVE 78 YRS, FIBROMYALGIA, ALZHEIMER'S SIBLINGS: ALIVE, 1 BROTHER TESTICULAR CANCER, 1 BROTHER METASTATIC COLON CANCER (), 1 BROTHER HEALTHY MATERNAL GRAND MOTHER: BREAST CANCER MATERNAL AUNT: 2 BREAST CANCER IN 40-50 ONE WITH OVARUAN CANCER IN 40'S 3 BROTHER(S) . 3 SON(S) , 1 DAUGHTER(S) . YOUNGEST SON-PKU, ASTHMA, EXCEMA 2 MATERNAL COUSIND BREAST CANCER 40'S. SOCIAL HISTORY GENERAL: TOBACCO USE ARE YOU A:NONSMOKER NEVER SMOKER LATEX QUESTIONNAIRE LATEX ALLERGY : HAVE YOU EVER DEVELOPED ANY TYPE OF REACTION AFTER HANDLING LATEX PRODUCTS SUCH RUBBER GLOVES, CONDOMS, DIAPHRAGMS, BALLOONS, SOCKS, OR UNDERWEAR?NO LATEX ALLERGY : HAVE YOU EVER DEVELOPED ANY TYPE OF REACTION DURING OR AFTER DENTAL APPOINTMENT, VAGINAL/RECTAL EXAMINATION, SURGICAL PROCEDURE, OR ANY OTHER EXPOSURE?NO LATEX RISK : HAVE YOU EVER HAD ANY DIFFICULTY BREATHING OR HIVES AFTER EATING OR HANDLING ANY FRUITS, OR VEGETABLES; SUCH KIWI, BANANAS, STONE FRUITS, OR CHESTNUTSNO LATEX RISK : DO YOU HAVE A PREVIOUS PERSONAL HISTORY OF MORE THAN NINE SURGERIES, SPINA BIFIDA, OR REPEATED CATHERIZATIONS? NO LATEX RISK : ARE YOU FREQUENTLY EXPOSED TO LATEX PRODUCTS IN YOUR OCCUPATION?NO DATE ASKED : 04/11/2020 BMI CARE GOAL FOLLOW-UP ABOVE NORMAL BMI FOLLOW-UPGIVING ENCOURAGEMENT TO EXERCISE ALCOHOL SCREENING DID YOU HAVE A DRINK CONTAINING ALCOHOL IN THE PAST YEAR?NO POINTS0 INTERPRETATIONNEGATIVE RECREATIONAL DRUG USE DRUG USE?NO CAFFEINE CAFFEINE USE?YES 1 CUP COFFEE DAILY HIV / HEP-C SCREENING HIV TEST OFFERED TO PATIENT:YES DATE OFFERED:06/04/2019 TEST ACCEPTED:YES HEP-C TEST OFFERED TO PATIENT:NO BROCHURE PROVIDED TO PATIENTYES EPISCOPALIAN [id number] OTHER LANGUAGE LANGUAGES SPOKEN:[place] EDUCATION LEVEL OF EDUCATION:HIGH SCHOOL LEARNING BARRIERS / SPECIAL NEEDS CHANGE FROM LAST VISIT?NO BARRIERS TO LEARNING?NO HEARING IMPAIRED?YES VISION IMPAIRED?YES COGNITIVELY IMPAIRED?NO : SOME HEARING LOSS RIGHT EAR :CORRECTIVE LENSES READING GLASSES READINESS TO LEARN?YES LEARNING PREFERENCES?YES :DEMONSTRATION/VERBAL INSTRUCTION LEARNING CAPABILITIES PRESENT?YES EMOTIONAL BARRIERS?NO SPECIAL DEVICES?NO CLIENT RENEWAL SPECIALIST NEEDED?NO DOMESTIC VIOLENCE DO YOU FEEL SAFE IN YOUR ENVIRONMENT?YES OCCUPATION: DISABLED. DIET: REGULAR. EXERCISE: NO REGULAR EXERCISE. MARITAL STATUS: .. OTHERS AT HOME: CHILD, OTHER RELATIVE. PAIN CLINIC PFS, CLERGY, PUBLIC HEALTH REFERRALS PFS REFERRAL NEEDED?NO CLERGY REFERRAL NEEDED?NO PUBLIC HEALTH REFERRAL NEEDED?NO WAS THE PROVIDER NOTIFIED OF ANY PERTINENT INFO?YES N/A HAS THE PATIENT BEEN EDUCATED REGARDING HIS/HER PLAN OF CARE?YES HAS THE PATIENT BEEN EDUCATED REGARDING PAIN, THE RISK FOR PAIN, THE IMPORTANCE OF EFFECTIVE PAIN MANAGEMENT, AND THE PAIN ASSESSMENT PROCESS?YES ADVANCE DIRECTIVE ADVANCE DIRECTIVE DISCUSSED WITH PATIENT:YES PT DOES NOT HAVE ANY ADVANCED DIRECTIVES AND SHE DECLINES INFORMATION ON HCP AT THIS TIME. HOSPITALIZATION/MAJOR DIAGNOSTIC PROCEDURE SURGICALLY RELATED CONCUSSION TEENAGER REVIEW OF SYSTEMS GLAUCOMA: NOTHYROID DISEASE: NOHYPERTENSION: NOHEART DISEASE: NOLUNG DISEASE: NODIABETES: NOGI DISEASE: NO LIVER DISEASE: NO KIDNEY DISEASE: NOSTERIOD USE: NONEUROLOGICAL DISEASE: NOBACK PROBLEMS: YES, PAINEXTREMITIES: YES, ARM PAINGENITOURINARY: NOBLEEDING DISORDER: NOASA CLASS: IIAIRWAY CLASS: II. VITAL SIGNS WT 187.0 LBS, HT 63 IN, BMI 33.12 INDEX, BP 121/71 MM HG, HR 103 /MIN, RR 18 /MIN, TEMP 96.3 F, OXYGEN SAT % 98%, SAFE IN ENV? (Y/N) YES, NA INITIALS AW 0955, REVIEWED BY: MTM. [employer] FUNDS TRANSFER CLERK. EXAMINATION GENERAL EXAMINATION: THE PATIENT IS ALERT, ORIENTED TIMES THREE AND COOPERATIVE. LUNGS ARE CLEAR TO AUSCULTATION. HEART SHOWS REGULAR RHYTHM, NO MURMURS AND NO GALLOPS. THERE IS HYPERPATHIA OVER THE RIGHT WRIST. HAND BREEDING TECHNICIAN IS WEAKER ON THE RIGHT THAN THE LEFT. ASSESSMENTS NEURALGIA OF RIGHT UPPER EXTREMITY - M79.2 (PRIMARY) TREATMENT NEURALGIA OF RIGHT UPPER EXTREMITY CLINICAL NOTES: I DISCUSSED ALTERNATIVES WITH MS. MARTE. WE AGREE ON DOING A STELLATE GANGLION BLOCK WITH IV SEDATION DUE TO ANXIETY AND DISCOMFORT ASSOCIATED WITH THE PROCEDURE. I DISCUSSED WITH THE PATIENT ABOUT SAFETY AND MONITORING OF CARE. WE HAVE DECIDED TO DO THIS IN THE OR UNDER MAC GIVEN THE RISKS OF THE PROCEDURE. I WILL REQUEST AUTHORIZATION TO DO THIS INJECTION IN THE OR. THE PATIENT REPORTS UNDERSTANDING AND AGREES. I, MANOLO MARTINEZ, DOCUMENTED THE ABOVE INFORMATION ACTING A SCRIBE FOR DR. TOVAR. I HAVE REVIEWED THE ABOVE DOCUMENT, WRITTEN BY MANOLO MARTINEZ, CEO AND PRESIDENT, AND I VERIFY THAT IT IS ACCURATE. PROCEDURES PN WORKMANS' COMP OPINION IN YOUR OPINION, WAS THE INCIDENT THAT THE PATIENT DESCRIBED THE COMPETENT MEDICAL CAUSE OF THIS INJURY/ILLNESS? YES ARE THE PATIENT'S COMPLAINTS CONSISTENT WITH HIS/HER HISTORY OF THE INJURY/ILLNESS? YES IS THE PATIENT'S HISTORY OF THE INJURY/ILLNESS CONSISTENT WITH YOUR OBJECTIVE FINDING? YES WHAT IS THE PERCENTAGE OF TEMPORARY IMPAIRMENT? MODERATE TO MARKED = 66.7% . IS THE PATIENT WORKING? NO . DOCTOR ON SITE: CRICKET SUH MD PROCEDURE CODES FA211 ESTABILISHED PATIENT [facility] FACILITY CHARGE 29790 OFFICE/OUTPATIENT VISIT EST DISPOSITION & COMMUNICATION FOLLOW UP PROCEDURE WILL BE DONE IN OR, PLEASE CANCEL PROCEDURE AND COVID TEST, PLEASE SCHEDULE HER IN 3 WEEKS FOR PREDATE (REASON: PRESEDATE FOR OR STELLATE GANGLION BLOCK) ELECTRONICALLY SIGNED BY CRICKET TOVAR MD, MD ON 04/11/2020 AT 04:39 PM EST DISCLAIMER : THIS IS A VISIT SUMMARY EXTRACTED FROM THE [employer] CHART. IT IS NOT A COPY OF THE [employer] PROGRESS NOTE. MUKUL
== END ==
LOC: M PAIN 10:00
PROVIDERS: ATTEND Anesthesiology
DX: M79.2 Neuralgia and neuritis, unspecified (principal); M79.7 Fibromyalgia; E78.00 Pure hypercholesterolemia, unspecified; K76.0 Fatty (change of) liver, not elsewhere classified; Z79.891 Long term (current) use of opiate analgesic; Z79.899 Other long term (current) drug therapy; Z88.2 Allergy status to sulfonamides; Z88.8 Allergy status to other drugs, medicaments and biological substances

== ENCOUNTER → 2020-05-02 | Outpatient (CLI) | payer OTHER, MEDICARE ==
[~2020-05-02] MED LIST changes: +CREO3600 PO; +GABA-282 PO; -GABA-843 PO
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
== END ==
LOC: M PAIN 10:00
PROVIDERS: ATTEND Anesthesiology
DX: M79.2 Neuralgia and neuritis, unspecified (principal); M79.601 Pain in right arm; G89.29 Other chronic pain; M79.7 Fibromyalgia; Z88.2 Allergy status to sulfonamides; Z88.8 Allergy status to other drugs, medicaments and biological substances; Z79.899 Other long term (current) drug therapy

== ENCOUNTER → 2020-05-07 | Outpatient (CLI) | payer OTHER, MEDICARE | LOC: M LABSMTC 13:45 | PROVIDERS: ATTEND Anesthesiology | DX: Z01.812 Encounter for preprocedural laboratory examination (principal); Z20.822 Contact with and (suspected) exposure to COVID-19 ==

== ENCOUNTER 2020-05-12 10:42 | Day surgery (SDC) | payer OTHER ==
[~2020-05-12] VITALS: Ht 160 cm; Wt 84.1 kg
[~2020-05-12 10:42] MED LIST changes: +LR 1,000 ML IV ONE
[2020-05-12] MEDS ORDERED: fentaNYL 100 MCG/2 ML INJECTION (J3010) As Ordered ONE (13:11)
[2020-05-12] MEDS ORDERED: MIDAZOLAM INJ 2MG/2ML VIAL (J2250 PER 1MG) As Ordered ONE (13:12)
[2020-05-12] MEDS ORDERED: LIDOCAINE 1% SDV 30ML VIAL As Ordered ONE (13:43)
[2020-05-12] MEDS ORDERED: TRIAMCINOLONE ACETONIDE SUSP 40 MG/ML VIAL (J3301) As Ordered ONE (13:43)
[2020-05-12] MEDS ORDERED: BUPIVACAINE HCL 0.25% 10ML VIAL As Ordered ONE (13:43)
[2020-05-12] MEDS ORDERED: ISOVUE-300 61% 50ML VIAL As Ordered ONE (13:44)
[2020-05-12 15:00] VITALS: BP 110/80
--- NOTE | 2020-05-13 13:40 | ROOPDOC ---
[facility] Report Of Operation Report of Operation 05/12/2020 PREPROCEDURE DIAGNOSES: Right upper extremity neuralgia. POSTPROCEDURE DIAGNOSES: Right upper extremity neuralgia. PROCEDURE: Right stellate ganglion block under fluoroscopic guidance. SURGEON: Adam Story MD STAVE HEWER: None. ANESTHESIA: Local with IV sedation. PREOPERATIVE NOTE: The patient is with history of right arm pain. I discussed the risks, alternatives and benefits associated with this procedure. The patient expressed understanding and would like to proceed. The patient denies unexplainable weight loss, fever, chills, or changes in urinary or bowel control. DESCRIPTION OF PROCEDURE: After consent was taken, the patient was brought to the operating room and placed in the supine position. The right neck area was cleaned with ChloraPrep solution and draped aseptically. The procedure was done under sterile conditions. Under fluoroscopic guidance, target point was selected at the level approximately of T7. I advanced a EchoBlock, 4 in, ultrasound needle with the help of an ultrasound device. I put the needle behind the carotid artery and anterior to the longus colli muscle. I used the ultrasound to check the vascular structures and avoid nerves. When appropriate position of the needle was achieved, Isovue-M dye 30%, 0.25 mL, was injected showing spread of the dye. Then a solution of 10 mL of bupivacaine 0.25% 5 cc and lidocaine 1% 5cc, was injected with Kenalog 40 mg. There was no evidence of blood or paresthesia. The patient was sent to the recovery room. The patient was moving extremities and doing well. There were no complications during the procedure. Estimated blood loss was less than 5 mL. Post procedure note: After the procedure, the patient was having evidence of ptosis, which is evidence of an adequate block. The patient will be seen in follow up in a few weeks. I am looking for long lasting pain relief with this intervention. I, Cathy Spaulding, documented the above information acting as a scribe for Dr. Patel. I have reviewed the above document, written by Cathy Spaulding, medical corps officer, and I verify that it is accurate. Adam Story MD May 13, 2020 13:40
--- NOTE | 2020-05-13 16:48 | REP ---
INDICATION: RIGHT STELLATE GANGLION BLOCK,. COMPARISON: None. TECHNIQUE: Two views 6 seconds of fluoroscopy time is reported. FINDINGS: A sequence of 2 last image hold fluoroscopically obtained spot radiographs of the cervical spine region document needle position and contrast injection associated with injection procedure. IMPRESSION: Procedural imaging. <Electronically signed by Solitario Villegas > 05/13/20 [id number]
== END 2020-05-12 15:20 | disposition home or self-care (01) ==
LOC: M SDC 10:42
PROVIDERS: ATTEND Anesthesiology
DX: G56.91 Unspecified mononeuropathy of right upper limb (principal); Z79.899 Other long term (current) drug therapy; Z88.0 Allergy status to penicillin; Z88.2 Allergy status to sulfonamides; Z88.8 Allergy status to other drugs, medicaments and biological substances
CPT/HCPCS: 64510; 76000; J2250; J3010; J3301; Q9967

== ENCOUNTER → 2020-05-26 | Outpatient (CLI) | payer OTHER, MEDICARE ==
[~2020-05-26] MED LIST changes: -LR 1,000 ML IV ONE
--- NOTE | 2020-05-31 23:52 | ECWPNPC ---
PATIENT NAME: LEVI MARTE : 1965 GENDER: FEMALE VISIT DATE: 05/26/2020 DISCHARGE DATE: 05/26/20 1029 VISIT LOCKED DATE TIME: PHYSICIAN: AIDA THOMPSON RESOURCE: AIDA THOMPSON REASON FOR APPOINTMENT 1. POST OR STELLATE GANGLION BLOCK HISTORY OF PRESENT ILLNESS GENERAL: HERE FOR POST PROCEDURE F/U.HAD RIGHT STELLATE GANGLION BLOCK ON 05/12/2020.REPORTING MARKED REDUCTION IN PAIN.THIS IS A F/U OF A WORK RELATED INJURY. FALL RISK SCREENING: SCREENING :NO FALLS REPORTED IN THE LAST YEAR PAIN SCREENING: PATIENT HAS A COMPLAINT OF ACUTE OR CHRONIC PAIN :YES LOCATION OF PAIN:HAND(S) LEFT HAND AND WRIST INTENSITY OF PAIN (SCALE OF 1 TO 10):2 WHAT DOES YOUR PAIN FEEL LIKE:ACHING, CONTINOUS, THROBBING DURATION:CONTINOUS, ALL DAY, AWAKENS FROM SLEEP PAIN IS INCREASED BY:ACTIVITIES PAIN IS DECREASED BY:USE OF PAIN MEDICATIONS NURSING NOTE: -. PAIN CENTER INTAKE QUESTIONS: DO YOU HAVE A HISTORY OF MRSA? :NO DO YOU TAKE A BLOOD THINNERS? :NO DO YOU HAVE ANY BLEEDING DISORDERS? :NO ANY NEW NUMBNESS OR WEAKNESS IN YOUR LEGS OR ARMS? :NO ANY PACEMAKER,DEFIBRILLATOR, OR DORSAL COLUMN STIMULATOR? :NO DO YOU HAVE ANY RASHES OR OPEN SORES? :NO ARE YOU ALLERGIC TO IV DYE? :NO ARE YOU DIABETIC? :NO ANY NEW PROBLEMS WITH YOUR MEDICATIONS? :NO HAVE YOU RECEIVED A VACCINE IN THE PAST 30 DAYS? :NO DO YOU PLAN TO RECEIVE A VACCINE IN THE NEXT 21 DAYS? :NO DO YOU NEED ANY PRESCRIPTION? :NO DO YOU TAKE ANY IMMUNOSUPPRESSIVE MEDICATIONS? :NO IS THERE A CHANCE YOU COULD BE ? :NO ARE YOU BREAST FEEDING? :NO CURRENT MEDICATIONS TAKING DULOXETINE HCL 30 MG CAPSULE DELAYED RELEASE PARTICLES 1 CAPSULE ORALLY TWICE A DAY TAKING GABAPENTIN 400 MG TABLET 1 TABLET ORALLY BID TAKING AMITRIPTYLINE HCL 30 MG TABLET 1 TABLET AT BEDTIME ORALLY ONCE A DAY TAKING OXYCODONE-ACETAMINOPHEN 5-325 MG TABLET 1 TABLET NEEDED ORALLY EVERY 4 HOURS NEEDED TAKING LIDOCAINE & ADHESIVE SHEET 5 % KIT 1 PATCH EXTERNALLY DAILY NEEDED ON 12 HOURS OFF 12 HOURS TAKING PANTOPRAZOLE SODIUM 20 MG TABLET DELAYED RELEASE 1 TABLET ORALLY ONCE A DAY TAKING CREON 49835 UNIT CAPSULE DELAYED RELEASE PARTICLES 2 TABS ORALLY WITH MEALS TAKING NEXIUM 20 MG CAPSULE DELAYED RELEASE 1 CAPSULE ORALLY ONCE A DAY TAKING ATORVASTATIN CALCIUM 20 MG TABLET 1 TABLET ORALLY ONCE A DAY NOT-TAKING SIMVASTATIN 10 MG TABLET 1 TABLET IN THE EVENING ORALLY ONCE A DAY NOT-TAKING DICYCLOMINE HCL 10 MG CAPSULE 2 CAPSULES ORALLY THREE TIMES A DAY NOT-TAKING OMEPRAZOLE 10 MG CAPSULE DELAYED RELEASE 1 CAPSULE ORALLY ONCE A DAY MEDICATION LIST REVIEWED AND RECONCILED WITH THE PATIENT PAST MEDICAL HISTORY KIDNEY STONES CTS, BILATERAL FIBROMYALGIA OSTEOARTHRITIS SCOLIOSIS A CHILD HIGH CHOLESTEROL FATTY LIVER DIVERTICULITIS CRPS RIGHT ARM PAIN LEFT WRIST/HAND POSSIBLE IBS EPI (EXOCRINE PANCREATIC INSUFFICIENCY) TC SCORE 11.18 5 OIL CYSTS OF THE BREASTS ALLERGIES PSEUDOEPHEDRINE HCL: HIVES - ALLERGY SULFA (FOR ALLERGY USE ONLY): HIVES - ALLERGY SOCIAL HISTORY GENERAL: TOBACCO USE ARE YOU A:NONSMOKER NEVER SMOKER LATEX QUESTIONNAIRE LATEX ALLERGY : HAVE YOU EVER DEVELOPED ANY TYPE OF REACTION AFTER HANDLING LATEX PRODUCTS SUCH RUBBER GLOVES, CONDOMS, DIAPHRAGMS, BALLOONS, SOCKS, OR UNDERWEAR?NO LATEX ALLERGY : HAVE YOU EVER DEVELOPED ANY TYPE OF REACTION DURING OR AFTER DENTAL APPOINTMENT, VAGINAL/RECTAL EXAMINATION, SURGICAL PROCEDURE, OR ANY OTHER EXPOSURE?NO LATEX RISK : HAVE YOU EVER HAD ANY DIFFICULTY BREATHING OR HIVES AFTER EATING OR HANDLING ANY FRUITS, OR VEGETABLES; SUCH KIWI, BANANAS, STONE FRUITS, OR CHESTNUTSNO LATEX RISK : DO YOU HAVE A PREVIOUS PERSONAL HISTORY OF MORE THAN NINE SURGERIES, SPINA BIFIDA, OR REPEATED CATHERIZATIONS? NO LATEX RISK : ARE YOU FREQUENTLY EXPOSED TO LATEX PRODUCTS IN YOUR OCCUPATION?NO DATE ASKED : 05/26/2020 ALCOHOL USE: NO. BMI CARE GOAL FOLLOW-UP ABOVE NORMAL BMI FOLLOW-UPGIVING ENCOURAGEMENT TO EXERCISE ALCOHOL SCREENING DID YOU HAVE A DRINK CONTAINING ALCOHOL IN THE PAST YEAR?NO POINTS0 INTERPRETATIONNEGATIVE RECREATIONAL DRUG USE DRUG USE?NO CAFFEINE CAFFEINE USE?YES 1 CUP COFFEE DAILY HIV / HEP-C SCREENING HIV TEST OFFERED TO PATIENT:YES DATE OFFERED:06/04/2019 TEST ACCEPTED:YES HEP-C TEST OFFERED TO PATIENT:NO BROCHURE PROVIDED TO PATIENTYES QUAKER [id number] OTHER LANGUAGE LANGUAGES SPOKEN:PANAMANIAN EDUCATION LEVEL OF EDUCATION:HIGH SCHOOL LEARNING BARRIERS / SPECIAL NEEDS CHANGE FROM LAST VISIT?NO BARRIERS TO LEARNING?NO HEARING IMPAIRED?YES : SOME HEARING LOSS RIGHT EAR VISION IMPAIRED?YES :CORRECTIVE LENSES READING GLASSES COGNITIVELY IMPAIRED?NO READINESS TO LEARN?YES LEARNING PREFERENCES?YES :DEMONSTRATION/VERBAL INSTRUCTION LEARNING CAPABILITIES PRESENT?YES EMOTIONAL BARRIERS?NO SPECIAL DEVICES?NO 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 DIET: REGULAR. EXERCISE: NO REGULAR EXERCISE. MARITAL STATUS: .. OTHERS AT HOME: CHILD, OTHER RELATIVE. REVIEW OF SYSTEMS CONSTITUTIONAL: ANY RECENT FEVER NO . CHILLS NO . WEIGHT CHANGE OF UNKNOWN REASONS NO . GASTROENTEROLOGY: NEW UNEXPLAINABLE CHANGES IN BOWEL CONTROL NO . CONSTIPATION NO . GENITOURINARY: ANY NEW CHANGE IN BLADDER CONTROL? NO . NEUROLOGY: NEW ONSET DIZZINESS OR NEUROLOGICAL CHANGES NOT MENTIONED NO . NEW NUMBNESS OR PAIN PATTERNS NOT MENTIONED AND PERTINENT TO TODAY'S VISIT NO . CARDIOLOGY: NEW CHEST PRESSURE NO . PATIENT DENIES NO . RESPIRATORY: UNEXPLAINABLE COUGH NO . NEW SHORTNESS OF BREATH NO . VITAL SIGNS WT 184 LBS, HT 63 IN, BMI 32.59 INDEX, BP 119/80 MM HG, HR 93 /MIN, RR 16 /MIN, TEMP 95.1 F, OXYGEN SAT % 100, SAFE IN ENV? (Y/N) Y, REVIEWED BY: MIKEY ANNE MA. EXAMINATION GENERAL EXAMINATION: LUNGS:LUNG SOUNDS ARE CLEAR. HEART:HEART RATE REGULAR. 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 CHART. IT IS NOT A COPY OF THE [employer] PROGRESS NOTE. MUKUL
== END ==
LOC: M PAIN 10:00
PROVIDERS: ATTEND Nurse Practitioner Family
DX: M79.2 Neuralgia and neuritis, unspecified (principal); G89.29 Other chronic pain; M79.601 Pain in right arm; M79.7 Fibromyalgia; Z88.2 Allergy status to sulfonamides; Z88.8 Allergy status to other drugs, medicaments and biological substances; Z79.899 Other long term (current) drug therapy

== ENCOUNTER → 2020-06-10 | Outpatient (CLI) | payer MEDICARE, OTHER ==
[~2020-06-10] MED LIST changes: -AMIT10TA PO; +AMIT10TA7 PO
--- NOTE | 2020-06-10 16:06 | REPMRS ---
Patient History The patient states she had a clinical breast exam in June 2020. Patient is postmenopausal. Family history of colorectal cancer in brother, unknown cancer in brother, unknown cancer in father, breast cancer in maternal cousin, breast cancer in maternal aunt, breast cancer in maternal grandmother. Digital Woman Screen Mammo: June 10, 2020 - Exam #: [id number] Bilateral CC and MLO view(s) were taken. Technologist: RT Vanita Prior study comparison: May 25, 2019, diagnostic bilateral mammo performed at [facility]. August 08, 2018, right breast diagnostic unilateral mammo, performed at [facility]. February 06, 2018, bilateral digital mammo screening bilat, performed at [facility]. FINDINGS: The breast tissue is almost entirely fat. The Volpara volumetric breast density category is: A. There has been no change in the appearance of the mammogram from the prior studies. There is no interval development of dominant mass, architectural distortion, or grouped microcalcification typical of malignancy. 3-D tomosynthesis shows no additional findings. Assessment: BI-RADS/ACR category 1 mammogram. Negative Mammogram. Recommendation Routine screening mammogram of both breasts in 1 year (for women over age 40). This patient's [facility] Lifetime Breast Cancer RIsk is estimated at 9.7 %. This mammogram was interpreted with the aid of an FDA-approved computer-aided dectection system. Electronically Signed By: Solitario Villegas MD 06/10/20 [id number]
== END ==
LOC: M WHC 15:01
PROVIDERS: ATTEND Nurse Practitioner Family
DX: Z12.31 Encounter for screening mammogram for malignant neoplasm of breast (principal); Z80.3 Family history of malignant neoplasm of breast; R92.8 Other abnormal and inconclusive findings on diagnostic imaging of breast

== ENCOUNTER → 2020-06-10 | Outpatient (REF) | payer MEDICARE, OTHER | LOC: M SFHCWAGY 09:22 | PROVIDERS: ATTEND Nurse Practitioner Family | DX: Z12.4 Encounter for screening for malignant neoplasm of cervix (principal); R87.612 Low grade squamous intraepithelial lesion on cytologic smear of cervix (LGSIL) | CPT/HCPCS: 87624; G0123 ==

== ENCOUNTER → 2020-07-15 | Outpatient (REF) | payer MEDICARE, OTHER | LOC: M SFHCWAGY 10:00 | PROVIDERS: ATTEND Nurse Practitioner Women's Health | DX: R30.0 Dysuria (principal) ==

== ENCOUNTER → 2020-08-22 | Outpatient (CLI) | payer OTHER, MEDICARE ==
[~2020-08-22] MED LIST changes: +GABA-283 PO; -GABA-845 PO
--- NOTE | 2020-08-24 23:30 | ECWPNPC ---
PATIENT NAME: LEVI MARTE : 1965 GENDER: FEMALE VISIT DATE: 08/22/2020 DISCHARGE DATE: 08/22/20955 VISIT LOCKED DATE TIME: PHYSICIAN: AIDA THOMPSON RESOURCE: AIDA THOMPSON REASON FOR APPOINTMENT 1. RSD RIGHT ARM HISTORY OF PRESENT ILLNESS DEPRESSION SCREENING: PHQ-9 LITTLE INTEREST OR PLEASURE IN DOING THINGSMORE THAN HALF THE DAYS FEELING DOWN, DEPRESSED, OR HOPELESSNOT AT ALL TROUBLE FALLING OR STAYING ASLEEP, OR SLEEPING TOO MUCHNEARLY EVERY DAY FEELING TIRED OR HAVING LITTLE ENERGYSEVERAL DAYS POOR APPETITE OR OVEREATING NOT AT ALL FEELING BAD ABOUT YOURSELF-OR THAT YOU ARE A FAILURE OR HAVE LET YOURSELF OR YOUR FAMILY DOWN NOT AT ALL TROUBLE CONCENTRATING ON THINGS, SUCH READING THE NEWSPAPER OR WATCHING TELEVISION NOT AT ALL MOVING OR SPEAKING SO SLOWLY THAT OTHER PEOPLE COULD HAVE NOTICED. OR THE OPPOSITE- BEING SO FIDGETY OR RESTLESS THAT YOU HAVE BEEN MOVING AROUND A LOT MORE THAN USUALNOT AT ALL THOUGHTS THAT YOU WOULD BE BETTER OFF , OR OF HURTING YOURSELF IN SOME WAY?NOT AT ALL TOTAL SCORE:6 INTERPRETATIONMILD DEPRESSION PHQ-2 (2015 EDITION) LITTLE INTEREST OR PLEASURE IN DOING THINGS?MORE THAN HALF THE DAYS FEELING DOWN, DEPRESSED, OR HOPELESS?NOT AT ALL TOTAL SCORE2 GENERAL: HERE FOR FOLLOW-UP OF CHRONIC RIGHT ARM NEURALGIA. THIS IS A WORK RELATED INJURY. PAIN HAS INCREASED OVER THE PAST MONTH. RATING PAIN LEVEL A 10 OVER 10 VAS. PAIN IS CONSTANT AND ACHING. HAS BENEFITED FROM STELLATE GANGLION BLOCK WITH IV SEDATION IN THE PAST. THIS HAS GIVEN HER SEVERAL MONTHS OF PAIN CONTROL. -. FALL RISK SCREENING: SCREENING : NO FALLS REPORTED IN THE LAST YEAR. PAIN SCREENING: PATIENT HAS A COMPLAINT OF ACUTE OR CHRONIC PAIN :YES LOCATION OF PAIN:HAND(S) RIGHT HAND/ARM INTENSITY OF PAIN (SCALE OF 1 TO 10):10 WHAT DOES YOUR PAIN FEEL LIKE:ACHING, CONTINOUS, TENDER, THROBBING, SORE DURATION:CONTINOUS, CONSTANT, ALL DAY PAIN IS INCREASED BY:ACTIVITIES PAIN IS DECREASED BY:USE OF PAIN MEDICATIONS, OTHERS HEAT NURSING NOTE: -. PAIN CENTER INTAKE QUESTIONS: DO YOU HAVE A HISTORY OF MRSA? :NO DO YOU TAKE A BLOOD THINNERS? :NO DO YOU HAVE ANY BLEEDING DISORDERS? :NO ANY NEW NUMBNESS OR WEAKNESS IN YOUR LEGS OR ARMS? :NO ANY PACEMAKER,DEFIBRILLATOR, OR DORSAL COLUMN STIMULATOR? :NO DO YOU HAVE ANY RASHES OR OPEN SORES? :NO ARE YOU ALLERGIC TO IV DYE? :NO ARE YOU DIABETIC? :NO ANY NEW PROBLEMS WITH YOUR MEDICATIONS? :NO HAVE YOU RECEIVED A VACCINE IN THE PAST 30 DAYS? :NO DO YOU PLAN TO RECEIVE A VACCINE IN THE NEXT 21 DAYS? :NO DO YOU NEED ANY PRESCRIPTION? :NO DO YOU TAKE ANY IMMUNOSUPPRESSIVE MEDICATIONS? :NO IS THERE A CHANCE YOU COULD BE ? :NO ARE YOU BREAST FEEDING? :NO CURRENT MEDICATIONS TAKING DULOXETINE HCL 30 MG CAPSULE DELAYED RELEASE PARTICLES 1 CAPSULE ORALLY TWICE A DAY TAKING GABAPENTIN 400 MG TABLET 1 TABLET ORALLY BID TAKING AMITRIPTYLINE HCL 30 MG TABLET 1 TABLET AT BEDTIME ORALLY ONCE A DAY TAKING OXYCODONE-ACETAMINOPHEN 5-325 MG TABLET 1 TABLET NEEDED ORALLY EVERY 4 HOURS NEEDED TAKING LIDOCAINE & ADHESIVE SHEET 5 % KIT 1 PATCH EXTERNALLY DAILY NEEDED ON 12 HOURS OFF 12 HOURS TAKING PANTOPRAZOLE SODIUM 20 MG TABLET DELAYED RELEASE 1 TABLET ORALLY ONCE A DAY TAKING CREON 38632 UNIT CAPSULE DELAYED RELEASE PARTICLES 2 TABS ORALLY WITH MEALS TAKING NEXIUM 20 MG CAPSULE DELAYED RELEASE 1 CAPSULE ORALLY ONCE A DAY TAKING ATORVASTATIN CALCIUM 20 MG TABLET 1 TABLET ORALLY ONCE A DAY TAKING FLUCONAZOLE 150 MG TABLET 1 TABLET ORALLY TAKE ONE TAB TODAY, REPEAT IN ONE WEEK NOT-TAKING NITROFURANTOIN MACROCRYSTAL 100 MG CAPSULE 1 CAPSULE AT BEDTIME WITH FOOD OR MILK ORALLY BID NOT-TAKING SIMVASTATIN 10 MG TABLET 1 TABLET IN THE EVENING ORALLY ONCE A DAY NOT-TAKING DICYCLOMINE HCL 10 MG CAPSULE 2 CAPSULES ORALLY THREE TIMES A DAY NOT-TAKING OMEPRAZOLE 10 MG CAPSULE DELAYED RELEASE 1 CAPSULE ORALLY ONCE A DAY MEDICATION LIST REVIEWED AND RECONCILED WITH THE PATIENT PAST MEDICAL HISTORY KIDNEY STONES CTS, BILATERAL FIBROMYALGIA OSTEOARTHRITIS SCOLIOSIS A CHILD HIGH CHOLESTEROL FATTY LIVER DIVERTICULITIS CRPS RIGHT ARM PAIN LEFT WRIST/HAND POSSIBLE IBS EPI (EXOCRINE PANCREATIC INSUFFICIENCY) TC SCORE 12.4 % MEDICARE DENIED [employer] GENETIC TEST OIL CYSTS OF THE BREASTS ALLERGIES PSEUDOEPHEDRINE HCL: HIVES - ALLERGY SULFA (FOR ALLERGY USE ONLY): HIVES - ALLERGY SOCIAL HISTORY GENERAL: TOBACCO USE ARE YOU A:NONSMOKER NEVER SMOKER LATEX QUESTIONNAIRE LATEX ALLERGY : HAVE YOU EVER DEVELOPED ANY TYPE OF REACTION AFTER HANDLING LATEX PRODUCTS SUCH RUBBER GLOVES, CONDOMS, DIAPHRAGMS, BALLOONS, SOCKS, OR UNDERWEAR?NO LATEX ALLERGY : HAVE YOU EVER DEVELOPED ANY TYPE OF REACTION DURING OR AFTER DENTAL APPOINTMENT, VAGINAL/RECTAL EXAMINATION, SURGICAL PROCEDURE, OR ANY OTHER EXPOSURE?NO LATEX RISK : HAVE YOU EVER HAD ANY DIFFICULTY BREATHING OR HIVES AFTER EATING OR HANDLING ANY FRUITS, OR VEGETABLES; SUCH KIWI, BANANAS, STONE FRUITS, OR CHESTNUTSNO LATEX RISK : DO YOU HAVE A PREVIOUS PERSONAL HISTORY OF MORE THAN NINE SURGERIES, SPINA BIFIDA, OR REPEATED CATHERIZATIONS? NO LATEX RISK : ARE YOU FREQUENTLY EXPOSED TO LATEX PRODUCTS IN YOUR OCCUPATION?NO DATE ASKED : 08/22/2020 ALCOHOL USE: NO. BMI CARE GOAL FOLLOW-UP ABOVE NORMAL BMI FOLLOW-UPGIVING ENCOURAGEMENT TO EXERCISE ALCOHOL SCREENING DID YOU HAVE A DRINK CONTAINING ALCOHOL IN THE PAST YEAR?NO POINTS0 INTERPRETATIONNEGATIVE RECREATIONAL DRUG USE DRUG USE?NO CAFFEINE CAFFEINE USE?YES 1 CUP COFFEE DAILY HIV / HEP-C SCREENING HIV TEST OFFERED TO PATIENT:YES DATE OFFERED:06/04/2019 TEST ACCEPTED:YES HEP-C TEST OFFERED TO PATIENT:NO BROCHURE PROVIDED TO PATIENTYES RASTAFARIAN [id number] OTHER LANGUAGE LANGUAGES SPOKEN:ROMANIAN EDUCATION LEVEL OF EDUCATION:HIGH SCHOOL LEARNING BARRIERS / SPECIAL NEEDS CHANGE FROM LAST VISIT?NO BARRIERS TO LEARNING?NO HEARING IMPAIRED?YES : SOME HEARING LOSS RIGHT EAR VISION IMPAIRED?YES :CORRECTIVE LENSES READING GLASSES COGNITIVELY IMPAIRED?NO READINESS TO LEARN?YES LEARNING PREFERENCES?YES :DEMONSTRATION/VERBAL INSTRUCTION LEARNING CAPABILITIES PRESENT?YES EMOTIONAL BARRIERS?NO SPECIAL DEVICES?NO 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 DIET: REGULAR. EXERCISE: NO REGULAR EXERCISE. MARITAL STATUS: .. OTHERS AT HOME: CHILD, OTHER RELATIVE. REVIEW OF SYSTEMS CONSTITUTIONAL: ANY RECENT FEVER NO . CHILLS NO . WEIGHT CHANGE OF UNKNOWN REASONS NO . GASTROENTEROLOGY: NEW UNEXPLAINABLE CHANGES IN BOWEL CONTROL NO . CONSTIPATION NO . GENITOURINARY: ANY NEW CHANGE IN BLADDER CONTROL? NO . NEUROLOGY: NEW ONSET DIZZINESS OR NEUROLOGICAL CHANGES NOT MENTIONED NO . NEW NUMBNESS OR PAIN PATTERNS NOT MENTIONED AND PERTINENT TO TODAY'S VISIT NO . CARDIOLOGY: NEW CHEST PRESSURE NO . PATIENT DENIES NO . RESPIRATORY: UNEXPLAINABLE COUGH NO . NEW SHORTNESS OF BREATH NO . VITAL SIGNS WT 181.8 LBS, HT 63 IN, BMI 32.20 INDEX, BP 116/74 MM HG, HR 91 /MIN, RR 18 /MIN, TEMP 98.0 F, OXYGEN SAT % 97%, SAFE IN ENV? (Y/N) YES, NA INITIALS AW 0933T.SYLVAIN MUNOZ. EXAMINATION GENERAL EXAMINATION: LUNGS:LUNG SOUNDS ARE CLEAR. HEART:HEART RATE REGULAR. MUSCULOSKELETAL:*. 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 PROCEDURES PN WORKMANS' COMP OPINION IN YOUR OPINION, WAS THE INCIDENT THAT THE PATIENT DESCRIBED THE COMPETENT MEDICAL CAUSE OF THIS INJURY/ILLNESS? YES ARE THE PATIENT'S COMPLAINTS CONSISTENT WITH HIS/HER HISTORY OF THE INJURY/ILLNESS? YES IS THE PATIENT'S HISTORY OF THE INJURY/ILLNESS CONSISTENT WITH YOUR OBJECTIVE FINDING? YES WHAT IS THE PERCENTAGE OF TEMPORARY IMPAIRMENT? MODERATE TO MARKED = 66.7% IS THE PATIENT WORKING? NO DOCTOR ON SITE: CRICKET [facility] MD PROCEDURE CODES FA211 ESTABILISHED PATIENT [facility] CHARGE DISPOSITION & COMMUNICATION FOLLOW UP NEEDS PRE SEDATE/SIGN CONSENT APT DR TOVAR AND POST PROCEDURE APT Nadine HOANG (REASON: STELLATE GANGLION BLOCK RIGHT) ELECTRONICALLY SIGNED BY KIM VEE ON 08/24/2020 AT 09:50 PM EDT DISCLAIMER : THIS IS A VISIT SUMMARY EXTRACTED FROM THE [employer] CHART. IT IS NOT A COPY OF THE [employer] PROGRESS NOTE. MUKUL
== END ==
LOC: M PAIN 09:30
PROVIDERS: ATTEND Nurse Practitioner Family
DX: M79.2 Neuralgia and neuritis, unspecified (principal); G89.29 Other chronic pain; M79.7 Fibromyalgia; Z88.2 Allergy status to sulfonamides; Z88.8 Allergy status to other drugs, medicaments and biological substances; Z79.899 Other long term (current) drug therapy

== ENCOUNTER → 2020-10-16 | Outpatient (CLI) | payer OTHER, MEDICARE ==
[~2020-10-16] MED LIST changes: -DOXY100C37 PO; +DOXY1CAP62 PO
--- NOTE | 2020-10-18 05:13 | ECWPNPC ---
PATIENT NAME: LEVI MARTE : 1965 GENDER: FEMALE VISIT DATE: 10/16/2020 DISCHARGE DATE: 10/16/20 1009 VISIT LOCKED DATE TIME: PHYSICIAN: CRICKET TOVAR MD RESOURCE: CRICKET TOVAR MD REASON FOR APPOINTMENT 1. PRESEDATE FOR RIGHT STELLATE GANGLION BLOCK HISTORY OF PRESENT ILLNESS PAIN CENTER INTAKE QUESTIONS: DO YOU HAVE A HISTORY OF MRSA? :NO DO YOU TAKE A BLOOD THINNERS? :NO DO YOU HAVE ANY BLEEDING DISORDERS? :NO ANY NEW NUMBNESS OR WEAKNESS IN YOUR LEGS OR ARMS? :YES FINGERS ON BILATERAL HANDS FEEL LIKE THEY HAVE FALLEN ASLEEP ANY PACEMAKER,DEFIBRILLATOR, OR DORSAL COLUMN STIMULATOR? :NO DO YOU HAVE ANY RASHES OR OPEN SORES? :NO ARE YOU ALLERGIC TO IV DYE? :NO ARE YOU DIABETIC? :NO ANY NEW PROBLEMS WITH YOUR MEDICATIONS? :NO HAVE YOU RECEIVED A VACCINE IN THE PAST 30 DAYS? :NO DO YOU PLAN TO RECEIVE A VACCINE IN THE NEXT 21 DAYS? :NO DO YOU NEED ANY PRESCRIPTION? :NO DO YOU TAKE ANY IMMUNOSUPPRESSIVE MEDICATIONS? :NO DO YOU HAVE ANY KIDNEY OR LIVER DISEASE? :NO IS THERE A CHANCE YOU COULD BE ? :NO ARE YOU BREAST FEEDING? :NO 55-YEAR-OLD FEMALE PATIENT WITH A HISTORY OF CHRONIC RIGHT ARM PAIN. THE PATIENT DESCRIBES THE PAIN ACHING, BURNING AND THROBBING WITH A PAIN SCORE RANGING FROM 7-10/10. 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 SHE WAS HURT IN A WORK RELATED INJURY IN JUNE 2009 WHEN SHE WAS WORKING FOR [employer]. SHE HAS HAD STELLATE GANGLION BLOCKS IN THE PAST THAT HAVE HELPED HER. THEY HELP KEEP HER MORE FUNCTIONAL. THE LAST BLOCK WAS DONE ABOUT 3 MONTHS AGO. GENERAL: -. FALL RISK SCREENING: SCREENING : NO FALLS REPORTED IN THE LAST YEAR. PAIN SCREENING: PATIENT HAS A COMPLAINT OF ACUTE OR CHRONIC PAIN :YES LOCATION OF PAIN:NECK, HAND(S), OTHER: RIGHT ARM INTENSITY OF PAIN (SCALE OF 1 TO 10):10 WHAT DOES YOUR PAIN FEEL LIKE:ACHING, CONTINOUS, SHARP DURATION:CONTINOUS PAIN IS INCREASED BY:ACTIVITIES PAIN IS DECREASED BY:USE OF PAIN MEDICATIONS, OTHERS LIDOCAINE PATHCES, BLOCK NURSING NOTE: -. CURRENT MEDICATIONS TAKING DULOXETINE HCL 30 MG CAPSULE DELAYED RELEASE PARTICLES 1 CAPSULE ORALLY TWICE A DAY TAKING GABAPENTIN 400 MG TABLET 1 TABLET ORALLY BID TAKING AMITRIPTYLINE HCL 30 MG TABLET 1 TABLET AT BEDTIME ORALLY ONCE A DAY TAKING OXYCODONE-ACETAMINOPHEN 5-325 MG TABLET 1 TABLET NEEDED ORALLY EVERY 4 HOURS NEEDED TAKING LIDOCAINE & ADHESIVE SHEET 5 % KIT 1 PATCH EXTERNALLY DAILY NEEDED ON 12 HOURS OFF 12 HOURS TAKING PANTOPRAZOLE SODIUM 20 MG TABLET DELAYED RELEASE 1 TABLET ORALLY ONCE A DAY TAKING CREON 15289 UNIT CAPSULE DELAYED RELEASE PARTICLES 2 TABS ORALLY WITH MEALS TAKING NEXIUM 20 MG CAPSULE DELAYED RELEASE 1 CAPSULE ORALLY ONCE A DAY TAKING ATORVASTATIN CALCIUM 20 MG TABLET 1 TABLET ORALLY ONCE A DAY TAKING FLUCONAZOLE 150 MG TABLET 1 TABLET ORALLY TAKE ONE TAB TODAY, REPEAT IN ONE WEEK NOT-TAKING NITROFURANTOIN MACROCRYSTAL 100 MG CAPSULE 1 CAPSULE AT BEDTIME WITH FOOD OR MILK ORALLY BID NOT-TAKING SIMVASTATIN 10 MG TABLET 1 TABLET IN THE EVENING ORALLY ONCE A DAY NOT-TAKING DICYCLOMINE HCL 10 MG CAPSULE 2 CAPSULES ORALLY THREE TIMES A DAY NOT-TAKING OMEPRAZOLE 10 MG CAPSULE DELAYED RELEASE 1 CAPSULE ORALLY ONCE A DAY MEDICATION LIST REVIEWED AND RECONCILED WITH THE PATIENT PAST MEDICAL HISTORY KIDNEY STONES CTS, BILATERAL FIBROMYALGIA OSTEOARTHRITIS SCOLIOSIS A CHILD HIGH CHOLESTEROL FATTY LIVER DIVERTICULITIS CRPS RIGHT ARM PAIN LEFT WRIST/HAND POSSIBLE IBS EPI (EXOCRINE PANCREATIC INSUFFICIENCY) TC SCORE 12.4 % MEDIC[facility]IED [facility] GENETIC TEST OIL CYSTS OF THE BREASTS ALLERGIES PSEUDOEPHEDRINE HCL: HIVES - ALLERGY SULFA (FOR ALLERGY USE ONLY): HIVES - ALLERGY SOCIAL HISTORY GENERAL: TOBACCO USE ARE YOU A:NONSMOKER NEVER SMOKER LATEX QUESTIONNAIRE LATEX ALLERGY : HAVE YOU EVER DEVELOPED ANY TYPE OF REACTION AFTER HANDLING LATEX PRODUCTS SUCH RUBBER GLOVES, CONDOMS, DIAPHRAGMS, BALLOONS, SOCKS, OR UNDERWEAR?NO LATEX ALLERGY : HAVE YOU EVER DEVELOPED ANY TYPE OF REACTION DURING OR AFTER DENTAL APPOINTMENT, VAGINAL/RECTAL EXAMINATION, SURGICAL PROCEDURE, OR ANY OTHER EXPOSURE?NO LATEX RISK : HAVE YOU EVER HAD ANY DIFFICULTY BREATHING OR HIVES AFTER EATING OR HANDLING ANY FRUITS, OR VEGETABLES; SUCH KIWI, BANANAS, STONE FRUITS, OR CHESTNUTSNO LATEX RISK : DO YOU HAVE A PREVIOUS PERSONAL HISTORY OF MORE THAN NINE SURGERIES, SPINA BIFIDA, OR REPEATED CATHERIZATIONS? NO LATEX RISK : ARE YOU FREQUENTLY EXPOSED TO LATEX PRODUCTS IN YOUR OCCUPATION?NO DATE ASKED : 10/16/2020 ALCOHOL USE: NO. BMI CARE GOAL FOLLOW-UP ABOVE NORMAL BMI FOLLOW-UPGIVING ENCOURAGEMENT TO EXERCISE ALCOHOL SCREENING DID YOU HAVE A DRINK CONTAINING ALCOHOL IN THE PAST YEAR?NO POINTS0 INTERPRETATIONNEGATIVE RECREATIONAL DRUG USE DRUG USE?NO CAFFEINE CAFFEINE USE?YES 1 CUP COFFEE DAILY HIV / HEP-C SCREENING HIV TEST OFFERED TO PATIENT:YES DATE OFFERED:06/04/2019 TEST ACCEPTED:YES HEP-C TEST OFFERED TO PATIENT:NO BROCHURE PROVIDED TO PATIENTYES RASTAFARI [id number] OTHER LANGUAGE LANGUAGES SPOKEN:INDIAN EDUCATION LEVEL OF EDUCATION:HIGH SCHOOL LEARNING BARRIERS / SPECIAL NEEDS CHANGE FROM LAST VISIT?NO BARRIERS TO LEARNING?NO HEARING IMPAIRED?YES VISION IMPAIRED?YES COGNITIVELY IMPAIRED?NO : SOME HEARING LOSS RIGHT EAR :CORRECTIVE LENSES READING GLASSES READINESS TO LEARN?YES LEARNING PREFERENCES?YES :DEMONSTRATION/VERBAL INSTRUCTION LEARNING CAPABILITIES PRESENT?YES EMOTIONAL BARRIERS?NO SPECIAL DEVICES?NO PUTTIER NEEDED?NO DOMESTIC VIOLENCE DO YOU FEEL SAFE IN YOUR ENVIRONMENT?YES OCCUPATION: DISABLED. DIET: REGULAR. EXERCISE: NO REGULAR EXERCISE. MARITAL STATUS: .. OTHERS AT HOME: CHILD, OTHER RELATIVE. REVIEW OF SYSTEMS GLAUCOMA: NOTHYROID DISEASE: NOHYPERTENSION: NOHEART DISEASE: NOLUNG DISEASE: NODIABETES: NOGI DISEASE: NO LIVER DISEASE: NO KIDNEY DISEASE: NOSTERIOD USE: NONEUROLOGICAL DISEASE: NOBACK PROBLEMS: YES, PAINEXTREMITIES: YES, PAINGENITOURINARY: NOBLEEDING DISORDER: NOASA CLASS: IIAIRWAY CLASS: II. VITAL SIGNS WT 178.8 LBS, HT 63 IN, BMI 31.67 INDEX, BP 113/75 MM HG, HR 93 /MIN, RR 18 /MIN, TEMP 98.1 F, OXYGEN SAT % 95%, SAFE IN ENV? (Y/N) YES, NA INITIALS AW 0940, REVIEWED BY: Nancy ZENDEJAS RN. EXAMINATION GENERAL: THE PATIENT IS ALERT, ORIENTED TIMES THREE AND COOPERATIVE. LUNGS ARE CLEAR TO AUSCULTATION. HEART SHOWS REGULAR RHYTHM, NO MURMURS AND NO GALLOPS. RIGHT ARM IS WEAKER THAN THE LEFT ARM ON FLEXION AND EXTENSION. HAND NUTRITION MANAGER OVER THE RIGHT IS REDUCED COMPARED TO THE LEFT SIDE. THERE IS TENDERNESS IN THE FOREARM AND RIGHT ARM. ASSESSMENTS NEURALGIA OF RIGHT UPPER EXTREMITY - M79.2 (PRIMARY) PAIN OF RIGHT UPPER EXTREMITY - M79.601 TREATMENT NEURALGIA OF RIGHT UPPER EXTREMITY CLINICAL NOTES: I DISCUSSED ALTERNATIVES WITH MS. MARTE. WE AGREE ON DOING THE STELLATE GANGLION BLOCK IN THE OR UNDER MONITORED ANESTHESIA CARE DUE TO THE ANXIETY AND DISCOMFORT ASSOCIATED WITH THE PROCEDURE AND THE SAFE ENVIRONMENT OF THE OR. THE PATIENT UNDERSTANDS AND AGREES. I, MANOLO MARTINEZ, DOCUMENTED THE ABOVE INFORMATION ACTING A SCRIBE FOR DR. OTVAR. I HAVE REVIEWED THE ABOVE DOCUMENT, WRITTEN BY MANOLO MARTINEZ, APPLICATION ARCHITECT, AND I VERIFY THAT IT IS ACCURATE. OTHERS NOTES: PRE PROCEDURE INSTRUCTIONS GIVEN TO PATIENT, PATIENT VERBALIZES UNDERSTANDING OF PRE PROCEDURE INSTRUCTIONS REVIEWED. PROCEDURES PN WORKMANS' COMP OPINION IN YOUR OPINION, WAS THE INCIDENT THAT THE PATIENT DESCRIBED THE COMPETENT MEDICAL CAUSE OF THIS INJURY/ILLNESS? YES ARE THE PATIENT'S COMPLAINTS CONSISTENT WITH HIS/HER HISTORY OF THE INJURY/ILLNESS? YES IS THE PATIENT'S HISTORY OF THE INJURY/ILLNESS CONSISTENT WITH YOUR OBJECTIVE FINDING? YES WHAT IS THE PERCENTAGE OF TEMPORARY IMPAIRMENT? MODERATE TO MARKED = 66.7% IS THE PATIENT WORKING? YES DOCTOR ON SITE: CRICKET SUH MD PROCEDURE CODES FA211 ESTABILISHED PATIENT [facility] CHARGE 10559 OFFICE/OUTPATIENT VISIT EST DISPOSITION & COMMUNICATION FOLLOW UP Nov IN OR (REASON: STELLATE GANGLION BLOCK) ELECTRONICALLY SIGNED BY CRICKET TOVAR MD, MD ON 10/17/2020 AT 10:05 AM EDT DISCLAIMER : THIS IS A VISIT SUMMARY EXTRACTED FROM THE [employer] CHART. IT IS NOT A COPY OF THE [employer] PROGRESS NOTE. MUKUL
== END ==
LOC: M PAIN 10:00
PROVIDERS: ATTEND Anesthesiology
DX: M79.2 Neuralgia and neuritis, unspecified (principal); M79.601 Pain in right arm; G89.29 Other chronic pain; M79.7 Fibromyalgia; Z88.2 Allergy status to sulfonamides; Z88.8 Allergy status to other drugs, medicaments and biological substances; Z79.899 Other long term (current) drug therapy

== ENCOUNTER → 2020-10-29 | Outpatient (CLI) | payer OTHER, MEDICARE | LOC: M LABSMTC 11:21 | PROVIDERS: ATTEND Anesthesiology | DX: Z01.812 Encounter for preprocedural laboratory examination (principal); Z20.822 Contact with and (suspected) exposure to COVID-19 ==

== ENCOUNTER 2020-11-03 09:55 | Day surgery (SDC) | payer OTHER ==
[~2020-11-03] VITALS: Ht 160 cm; Wt 80.7 kg
[~2020-11-03 09:55] MED LIST changes: +DOXY-443 PO; -DOXY1CAP62 PO; +LIDOCAINE 1% MDV 20ML VIAL SQ PRN; +LR 1,000 ML IV SCH; +MIDAZOLAM INJ 2MG/2ML VIAL (J2250 PER 1MG) As Ordered ONE; +ONDANSETRON 4MG/2ML VIAL As Ordered ONE; +fentaNYL 100 MCG/2 ML INJECTION As Ordered ONE
[2020-11-03] MEDS ORDERED: LIDOCAINE 1% SDV 30ML VIAL As Ordered ONE (11:27)
[2020-11-03] MEDS ORDERED: ISOVUE-300 61% 50ML VIAL As Ordered ONE (11:27)
[2020-11-03] MEDS ORDERED: BUPIVACAINE HCL 0.25% 30ML VIAL As Ordered ONE (11:27)
[2020-11-03] MEDS ORDERED: TRIAMCINOLONE ACETONIDE SUSP 40 MG/ML VIAL (J3301) As Ordered ONE (11:28)
[2020-11-03 13:36] VITALS: BP 122/78
== END 2020-11-03 13:33 | disposition home or self-care (01) ==
LOC: M SDC 09:55
PROVIDERS: ATTEND Anesthesiology
DX: M79.2 Neuralgia and neuritis, unspecified (principal); M79.601 Pain in right arm; K57.90 Diverticulosis of intestine, part unspecified, without perforation or abscess without bleeding; K21.9 Gastro-esophageal reflux disease without esophagitis; M79.7 Fibromyalgia; Z88.0 Allergy status to penicillin; Z88.2 Allergy status to sulfonamides; Z88.8 Allergy status to other drugs, medicaments and biological substances; Z79.899 Other long term (current) drug therapy
CPT/HCPCS: 64510; 76000; J2250; J2405; J3010; J3301; Q9967

== ENCOUNTER → 2020-11-20 | Outpatient (CLI) | payer OTHER, MEDICARE ==
[~2020-11-20] MED LIST changes: -DOXY-443 PO; +DOXY1CAP62 PO; -LIDOCAINE 1% MDV 20ML VIAL SQ PRN; -LR 1,000 ML IV SCH; -MIDAZOLAM INJ 2MG/2ML VIAL (J2250 PER 1MG) As Ordered ONE; -ONDANSETRON 4MG/2ML VIAL As Ordered ONE; -fentaNYL 100 MCG/2 ML INJECTION As Ordered ONE
== END ==
LOC: M PAIN 13:00
PROVIDERS: ATTEND Anesthesiology
DX: G89.29 Other chronic pain (principal); M79.601 Pain in right arm; M79.2 Neuralgia and neuritis, unspecified; M79.7 Fibromyalgia; Z88.2 Allergy status to sulfonamides; Z88.8 Allergy status to other drugs, medicaments and biological substances; Z79.899 Other long term (current) drug therapy

== ENCOUNTER → 2021-03-09 | Outpatient (CLI) | payer OTHER, MEDICARE ==
[~2021-03-09] MED LIST changes: +DOXY-443 PO; -DOXY1CAP62 PO
== END ==
LOC: M PAIN 08:30
PROVIDERS: ATTEND Nurse Practitioner Family
DX: M79.2 Neuralgia and neuritis, unspecified (principal); G89.29 Other chronic pain; M79.7 Fibromyalgia; Z88.2 Allergy status to sulfonamides; Z88.8 Allergy status to other drugs, medicaments and biological substances; Z79.899 Other long term (current) drug therapy

== ENCOUNTER → 2021-05-14 | Outpatient (CLI) | payer OTHER, MEDICARE | LOC: M PAIN 13:45 | PROVIDERS: ATTEND Nurse Practitioner Family | DX: M79.2 Neuralgia and neuritis, unspecified (principal); G89.29 Other chronic pain; M79.7 Fibromyalgia; Z88.2 Allergy status to sulfonamides; Z88.8 Allergy status to other drugs, medicaments and biological substances; Z79.899 Other long term (current) drug therapy ==

== ENCOUNTER → 2021-06-03 | Outpatient (REF) | payer MEDICARE ==
[~2021-06-03] MED LIST changes: +ATOR1TAB21; +GABA-282
== END ==
LOC: M LAB REF 10:37
PROVIDERS: ATTEND Internal Medicine Gastroenterology
DX: R19.7 Diarrhea, unspecified (principal)

== ENCOUNTER → 2021-06-03 | Outpatient (CLI) | payer OTHER, MEDICARE ==
[~2021-06-03] MED LIST changes: -ATOR1TAB21; -GABA-282
== END ==
LOC: M LABSMTC 11:07
PROVIDERS: ATTEND Anesthesiology
DX: Z01.812 Encounter for preprocedural laboratory examination (principal); Z20.822 Contact with and (suspected) exposure to COVID-19

== ENCOUNTER 2021-06-08 13:20 | Day surgery (SDC) | payer MEDICARE ==
[~2021-06-08] VITALS: Ht 160 cm; Wt 82.1 kg
[~2021-06-08 13:20] MED LIST changes: +ATOR1TAB21; +GABA-282; +NS 1,000 ML IV ONE
[2021-06-08] MEDS ORDERED: propofoL 200 MG/20 ML VIAL As Ordered ONE (14:23)
[2021-06-08] MEDS ORDERED: SIMETHICONE 40MG/0.6ML DROPS 30ML As Ordered ONE (14:24)
[2021-06-08] MEDS ORDERED: LIDOCAINE 2% 100MG/5ML SDV (FOR ANES.) As Ordered ONE (14:24)
[2021-06-08 15:21] VITALS: BP 111/62
== END 2021-06-08 15:31 | disposition home or self-care (01) ==
LOC: M OPP 13:20
PROVIDERS: ATTEND Internal Medicine Gastroenterology
DX: Z86.010 Personal history of colon polyps (principal); K64.8 Other hemorrhoids; K63.5 Polyp of colon; K57.30 Diverticulosis of large intestine without perforation or abscess without bleeding; K58.8 Other irritable bowel syndrome; K21.9 Gastro-esophageal reflux disease without esophagitis; M79.7 Fibromyalgia; G40.909 Epilepsy, unspecified, not intractable, without status epilepticus; Z79.899 Other long term (current) drug therapy; Z88.0 Allergy status to penicillin; Z88.2 Allergy status to sulfonamides; Z88.8 Allergy status to other drugs, medicaments and biological substances

== ENCOUNTER → 2021-07-08 | Outpatient (CLI) | payer OTHER, MEDICARE ==
[~2021-07-08] MED LIST changes: -ATOR1TAB21; +ATOR1TAB21 PO; -GABA-282; -NS 1,000 ML IV ONE
== END ==
LOC: M PAIN 15:30
PROVIDERS: ATTEND Anesthesiology
DX: M79.2 Neuralgia and neuritis, unspecified (principal); M79.601 Pain in right arm; G89.29 Other chronic pain; M79.7 Fibromyalgia; Z88.2 Allergy status to sulfonamides; Z88.8 Allergy status to other drugs, medicaments and biological substances; Z79.899 Other long term (current) drug therapy

== ENCOUNTER → 2021-07-21 | Outpatient (CLI) | payer MEDICARE | LOC: M WHC 08:52 | PROVIDERS: ATTEND Internal Medicine Gastroenterology | DX: R10.11 Right upper quadrant pain (principal); K76.0 Fatty (change of) liver, not elsewhere classified; Z90.49 Acquired absence of other specified parts of digestive tract ==

== ENCOUNTER → 2021-08-10 | Outpatient (CLI) | payer MEDICARE | LOC: M WHC 10:03 | PROVIDERS: ATTEND Obstetrics & Gynecology | DX: Z12.31 Encounter for screening mammogram for malignant neoplasm of breast (principal); Z80.0 Family history of malignant neoplasm of digestive organs; Z80.3 Family history of malignant neoplasm of breast ==

== ENCOUNTER → 2021-09-28 | Outpatient (CLI) | payer OTHER, MEDICARE | LOC: M PAIN 11:15 | PROVIDERS: ATTEND Nurse Practitioner Family | DX: M79.2 Neuralgia and neuritis, unspecified (principal); G89.29 Other chronic pain; M79.7 Fibromyalgia; Z88.2 Allergy status to sulfonamides; Z88.8 Allergy status to other drugs, medicaments and biological substances; Z79.899 Other long term (current) drug therapy ==

== ENCOUNTER → 2021-10-20 | Outpatient (CLI) | payer MEDICARE ==
[~2021-10-20] MED LIST changes: +PROHANCE 279.3MG/ML 15ML VIAL As Ordered ONE; +PROHANCE 279.3MG/ML 5ML VIAL As Ordered ONE
== END ==
LOC: M RAD 08:43
PROVIDERS: ATTEND Internal Medicine Gastroenterology
DX: K76.0 Fatty (change of) liver, not elsewhere classified (principal); N28.1 Cyst of kidney, acquired
CPT/HCPCS: 74183; A9576

== ENCOUNTER → 2021-12-16 | Outpatient (REF) | payer MEDICARE ==
[~2021-12-16] MED LIST changes: +DULO1CAP5 PO; -PROHANCE 279.3MG/ML 15ML VIAL As Ordered ONE; -PROHANCE 279.3MG/ML 5ML VIAL As Ordered ONE
== END ==
LOC: M PLALAB 10:35
PROVIDERS: ATTEND Obstetrics & Gynecology
DX: Z12.4 Encounter for screening for malignant neoplasm of cervix (principal); R87.610 Atypical squamous cells of undetermined significance on cytologic smear of cervix (ASC-US)

== ENCOUNTER → 2022-01-20 | Outpatient (CLI) | payer OTHER | LOC: M PAIN 15:30 | PROVIDERS: ATTEND Anesthesiology | DX: M79.2 Neuralgia and neuritis, unspecified (principal); G89.29 Other chronic pain; M79.7 Fibromyalgia; Z88.0 Allergy status to penicillin; Z88.2 Allergy status to sulfonamides; Z88.8 Allergy status to other drugs, medicaments and biological substances; Z79.899 Other long term (current) drug therapy ==

== ENCOUNTER → 2022-01-24 | Outpatient (CLI) | payer OTHER, MEDICARE | LOC: M LABSMTC 10:44 | PROVIDERS: ATTEND Anesthesiology | DX: Z01.812 Encounter for preprocedural laboratory examination (principal); Z20.822 Contact with and (suspected) exposure to COVID-19 ==

== ENCOUNTER → 2022-01-27 | Day surgery (SDC) | payer OTHER, MEDICARE ==
[~2022-01-27] VITALS: Ht 160 cm; Wt 82.1 kg
[~2022-01-27] MED LIST changes: +BUPIVACAINE HCL 0.25% 30ML VIAL As Ordered ONE; +ISOVUE-300 61% 50ML VIAL As Ordered ONE; +ISOVUE-M 300 61% 15ML VIAL As Ordered ONE; +LIDOCAINE 1% SDV 30ML VIAL As Ordered ONE; +LIDOCAINE 1% SDV 5ML VIAL As Ordered ONE; +LR 1,000 ML IV SCH; +MIDAZOLAM INJ 2MG/2ML VIAL (J2250 PER 1MG) As Ordered ONE; +TRIAMCINOLONE ACETONIDE SUSP 40 MG/ML VIAL (J3301) As Ordered ONE; +fentaNYL 100 MCG/2 ML INJECTION As Ordered ONE
[2022-01-27 14:50] VITALS: BP 146/86
== END | disposition home or self-care (01) ==
LOC: M SDC 09:52
PROVIDERS: ATTEND Anesthesiology
DX: M79.2 Neuralgia and neuritis, unspecified (principal); M79.7 Fibromyalgia; E78.5 Hyperlipidemia, unspecified; K76.0 Fatty (change of) liver, not elsewhere classified; F41.9 Anxiety disorder, unspecified; F32.A Depression, unspecified; K57.92 Diverticulitis of intestine, part unspecified, without perforation or abscess without bleeding; Z88.2 Allergy status to sulfonamides; Z88.0 Allergy status to penicillin; Z88.8 Allergy status to other drugs, medicaments and biological substances; I10 Essential (primary) hypertension; K58.8 Other irritable bowel syndrome; K21.9 Gastro-esophageal reflux disease without esophagitis; Z79.899 Other long term (current) drug therapy
CPT/HCPCS: 64510; 76000; J2250; J3010; J3301; Q9967

== ENCOUNTER → 2022-05-03 | Outpatient (CLI) | payer OTHER ==
[~2022-05-03] MED LIST changes: -BUPIVACAINE HCL 0.25% 30ML VIAL As Ordered ONE; -ISOVUE-300 61% 50ML VIAL As Ordered ONE; -ISOVUE-M 300 61% 15ML VIAL As Ordered ONE; -LIDOCAINE 1% SDV 30ML VIAL As Ordered ONE; -LIDOCAINE 1% SDV 5ML VIAL As Ordered ONE; -LR 1,000 ML IV SCH; -MIDAZOLAM INJ 2MG/2ML VIAL (J2250 PER 1MG) As Ordered ONE; -TRIAMCINOLONE ACETONIDE SUSP 40 MG/ML VIAL (J3301) As Ordered ONE; -fentaNYL 100 MCG/2 ML INJECTION As Ordered ONE
== END ==
LOC: M PAIN 09:15
PROVIDERS: ATTEND Nurse Practitioner Family
DX: Z53.21 Procedure and treatment not carried out due to patient leaving prior to being seen by health care provider (principal)

== ENCOUNTER → 2022-05-03 | Outpatient (CLI) | payer OTHER | LOC: M PAIN 14:00 | PROVIDERS: ATTEND Nurse Practitioner Family | DX: M79.2 Neuralgia and neuritis, unspecified (principal); G89.29 Other chronic pain; M79.7 Fibromyalgia; Z88.0 Allergy status to penicillin; Z88.2 Allergy status to sulfonamides; Z88.8 Allergy status to other drugs, medicaments and biological substances; Z79.899 Other long term (current) drug therapy ==

== ENCOUNTER → 2022-06-08 | Outpatient (CLI) | payer OTHER | LOC: M PAIN 09:00 | PROVIDERS: ATTEND Nurse Practitioner Family | DX: M79.2 Neuralgia and neuritis, unspecified (principal); G89.29 Other chronic pain; M79.7 Fibromyalgia; Z88.0 Allergy status to penicillin; Z88.2 Allergy status to sulfonamides; Z88.8 Allergy status to other drugs, medicaments and biological substances; Z79.899 Other long term (current) drug therapy ==

== ENCOUNTER → 2022-10-04 | Outpatient (CLI) | payer OTHER | LOC: M PAIN 09:00 | PROVIDERS: ATTEND Nurse Practitioner Family | DX: M79.2 Neuralgia and neuritis, unspecified (principal); G89.29 Other chronic pain; M79.7 Fibromyalgia; Z88.0 Allergy status to penicillin; Z88.2 Allergy status to sulfonamides; Z88.8 Allergy status to other drugs, medicaments and biological substances; Z79.899 Other long term (current) drug therapy ==

== ENCOUNTER → 2022-12-01 | Outpatient (CLI) | payer OTHER ==
[~2022-12-01] MED LIST changes: -GABA-283 PO; +GABA-284 PO
== END ==
LOC: M PAIN 15:00
PROVIDERS: ATTEND Anesthesiology
DX: M79.2 Neuralgia and neuritis, unspecified (principal); M79.7 Fibromyalgia; Z88.0 Allergy status to penicillin; Z88.2 Allergy status to sulfonamides; Z88.8 Allergy status to other drugs, medicaments and biological substances; Z79.899 Other long term (current) drug therapy

== ENCOUNTER → 2023-01-10 | Outpatient (CLI) | payer OTHER | LOC: M PAIN 15:30 | PROVIDERS: ATTEND Anesthesiology | DX: M79.2 Neuralgia and neuritis, unspecified (principal); G89.29 Other chronic pain; Z80.8 Family history of malignant neoplasm of other organs or systems; Z88.0 Allergy status to penicillin; Z88.2 Allergy status to sulfonamides; Z88.8 Allergy status to other drugs, medicaments and biological substances; Z79.899 Other long term (current) drug therapy ==

== ENCOUNTER → 2023-01-14 | Outpatient (CLI) | payer MEDICARE, OTHER | LOC: M WHC 14:55 | PROVIDERS: ATTEND Obstetrics & Gynecology | DX: Z12.31 Encounter for screening mammogram for malignant neoplasm of breast (principal) ==

== ENCOUNTER → 2023-01-14 | Outpatient (REF) | payer MEDICARE, OTHER | LOC: M SFHCWAGY 09:47 | PROVIDERS: ATTEND Obstetrics & Gynecology | DX: Z12.4 Encounter for screening for malignant neoplasm of cervix (principal); Z77.9 Other contact with and (suspected) exposures hazardous to health; R87.610 Atypical squamous cells of undetermined significance on cytologic smear of cervix (ASC-US) | CPT/HCPCS: 87624; G0123 ==

== ENCOUNTER 2023-01-31 11:00 | Day surgery (SDC) | payer OTHER, MEDICARE ==
[~2023-01-31] VITALS: Ht 160 cm; Wt 76.9 kg
[2023-01-31] MEDS ORDERED: LR 1,000 ML IV SCH (11:25)
[2023-01-31] MEDS ORDERED: propofoL 200 MG/20 ML VIAL As Ordered ONE (13:05)
[2023-01-31] MEDS ORDERED: LIDOCAINE 2% 100MG/5ML SDV (FOR ANES.) As Ordered ONE (13:05)
[2023-01-31] MEDS ORDERED: MIDAZOLAM INJ 2MG/2ML VIAL As Ordered ONE ×2 (13:05→14:47)
[2023-01-31] MEDS ORDERED: fentaNYL 100 MCG/2 ML INJECTION As Ordered ONE (13:06)
[2023-01-31] MEDS ORDERED: LIDOCAINE 1% SDV 30ML VIAL As Ordered ONE (13:10)
[2023-01-31] MEDS ORDERED: TRIAMCINOLONE ACETONIDE SUSP 40MG/ML 1ML VIAL As Ordered ONE (13:10)
[2023-01-31] MEDS ORDERED: ISOVUE-M 300 61% 15ML VIAL As Ordered ONE ×2 (13:10→14:41)
[2023-01-31 15:00] VITALS: BP 123/73; TEMP 97.3; O2SAT 97
== END 2023-01-31 15:44 | disposition home or self-care (01) ==
LOC: M SDC 11:00
PROVIDERS: ATTEND Anesthesiology
DX: M79.2 Neuralgia and neuritis, unspecified (principal); M79.621 Pain in right upper arm; M79.7 Fibromyalgia; E78.00 Pure hypercholesterolemia, unspecified; K76.0 Fatty (change of) liver, not elsewhere classified; Z79.899 Other long term (current) drug therapy; K57.92 Diverticulitis of intestine, part unspecified, without perforation or abscess without bleeding; K58.8 Other irritable bowel syndrome; F41.9 Anxiety disorder, unspecified; F32.A Depression, unspecified; Z88.0 Allergy status to penicillin; Z88.2 Allergy status to sulfonamides; Z88.8 Allergy status to other drugs, medicaments and biological substances
CPT/HCPCS: 64510; 76000; J0665; J2250; J3010; J3301; Q9967

== ENCOUNTER → 2023-03-10 | Outpatient (CLI) | payer OTHER | LOC: M PAIN 09:30 | PROVIDERS: ATTEND Nurse Practitioner Family | DX: M79.2 Neuralgia and neuritis, unspecified (principal); G89.29 Other chronic pain; Z80.8 Family history of malignant neoplasm of other organs or systems; Z88.0 Allergy status to penicillin; Z88.2 Allergy status to sulfonamides; Z88.8 Allergy status to other drugs, medicaments and biological substances; Z79.899 Other long term (current) drug therapy ==

== ENCOUNTER → 2023-05-10 | Outpatient (CLI) | payer OTHER | LOC: M PAIN 09:45 | PROVIDERS: ATTEND Nurse Practitioner Family | DX: M79.2 Neuralgia and neuritis, unspecified (principal); G89.29 Other chronic pain; M79.601 Pain in right arm; M79.7 Fibromyalgia; M19.90 Unspecified osteoarthritis, unspecified site; E78.00 Pure hypercholesterolemia, unspecified; Z79.891 Long term (current) use of opiate analgesic; Z79.899 Other long term (current) drug therapy; Z88.0 Allergy status to penicillin; Z88.2 Allergy status to sulfonamides; Z88.8 Allergy status to other drugs, medicaments and biological substances ==

== ENCOUNTER → 2023-05-13 | Outpatient (CLI) | payer OTHER | LOC: M PAIN 14:00 | PROVIDERS: ATTEND Anesthesiology | DX: M79.2 Neuralgia and neuritis, unspecified (principal); M79.601 Pain in right arm; G89.29 Other chronic pain; M79.7 Fibromyalgia; M19.90 Unspecified osteoarthritis, unspecified site; E78.00 Pure hypercholesterolemia, unspecified; Z79.891 Long term (current) use of opiate analgesic; Z79.899 Other long term (current) drug therapy; Z88.0 Allergy status to penicillin; Z88.2 Allergy status to sulfonamides; Z88.8 Allergy status to other drugs, medicaments and biological substances ==

== ENCOUNTER → 2023-05-31 | Outpatient (CLI) | payer OTHER | LOC: M PAIN 16:00 | PROVIDERS: ATTEND Anesthesiology | DX: M79.2 Neuralgia and neuritis, unspecified (principal); M79.601 Pain in right arm; G89.29 Other chronic pain; M79.7 Fibromyalgia; M19.90 Unspecified osteoarthritis, unspecified site; E78.00 Pure hypercholesterolemia, unspecified; Z79.891 Long term (current) use of opiate analgesic; Z79.899 Other long term (current) drug therapy; Z88.0 Allergy status to penicillin; Z88.2 Allergy status to sulfonamides; Z88.8 Allergy status to other drugs, medicaments and biological substances ==

== ENCOUNTER → 2024-02-01 | Outpatient (CLI) | payer OTHER ==
[~2024-02-01] MED LIST changes: +DOXY-441 PO; -DOXY-443 PO; +GABA-1172 PO; -GABA-282 PO
== END ==
LOC: M PAIN 09:15
PROVIDERS: ATTEND Anesthesiology
DX: M79.2 Neuralgia and neuritis, unspecified (principal); M79.601 Pain in right arm; M79.7 Fibromyalgia; M19.90 Unspecified osteoarthritis, unspecified site; E78.00 Pure hypercholesterolemia, unspecified; K76.0 Fatty (change of) liver, not elsewhere classified; G90.511 Complex regional pain syndrome I of right upper limb; Z79.891 Long term (current) use of opiate analgesic; Z79.899 Other long term (current) drug therapy; Z88.0 Allergy status to penicillin; Z88.2 Allergy status to sulfonamides; Z88.8 Allergy status to other drugs, medicaments and biological substances

== ENCOUNTER → 2024-08-01 | Outpatient (REF) | payer MEDICARE, OTHER | LOC: M LAB REF 10:20 | DX: K59.00 Constipation, unspecified (principal); R10.9 Unspecified abdominal pain; K57.92 Diverticulitis of intestine, part unspecified, without perforation or abscess without bleeding; K21.9 Gastro-esophageal reflux disease without esophagitis ==